=== PATIENT | male | born 1940 | race Caucasian/White ===

== ENCOUNTER 2018-04-28 13:17 | Observation (INO) | payer MEDICARE, BC ==
[~2018-04-28] VITALS: Ht 172.7 cm; Wt 79.9 kg
[~2018-04-28 13:17] MED LIST: ATENOLOL50 MG PO; AUGMENTIN 875-1 EACH PO; DIAZEPAM5 MG PO; LEVOTHYROXINE100 MCG PO; LOSARTAN POTASS25 MG PO; METFORMIN HCL500 MG PO; NEXIUM40 MG PO; QUINAPRIL HCL40 MG PO; SIMVASTATIN80 MG PO; STARLIX120 MG PO; TAMSULOSIN HCL0.4 MG PO; TENORMIN50 MG PO
--- OUTSIDE RECORDS SUMMARY | 2018-04-28 13:20 | XMS REPORT | Summary of Care ---
Author Author [facility] Organization [facility] Address Unknown Phone Unavailable Encounter HEIDY Saucedo(HERMILA) [id number] Date(s): 07/08/17 - 07/10/17 [facility] [address] [place] [address]- [phone] Encounter Diagnosis Other forms of angina pectoris (Final) - Discharge Disposition: Home or Self Care Attending Physician: Varun Howell MD Admitting Physician: Varun Howell MD Referring Physician: Varun Howell MD Vital Signs 1 2 3 Most recent to oldest [Reference Range]: 172.72 cm (07/08/17 11:25 AM) 172.72 cm (07/03/17 9:58 AM) Height 98 DegF (07/10/17 3:31 PM) 98 DegF (07/10/17 11:56 AM) 97.8 DegF (07/10/17 7:10 AM) Temperature Oral [96.4-99.1 DegF] 178/62 mmHg *HI* (07/10/17 3:31 PM) 135/72 mmHg (07/10/17 11:56 AM) 181/92 mmHg *HI* (07/10/17 9:41 AM) Blood Pressure [90-140/60-90 mmHg] 18 BRMIN (07/10/17 4:00 AM) 18 BRMIN (07/10/17 12:00 AM) 18 BRMIN (07/09/17 8:00 PM) Respiratory Rate [14-20 BRMIN] 69 bpm (07/10/17 3:31 PM) 62 bpm (07/10/17 11:56 AM) 70 bpm (07/10/17 9:41 AM) Peripheral Pulse Rate [60-100 bpm] 77.727 kg (07/08/17 11:25 AM) 80.653 kg (07/03/17 9:58 AM) Weight 26.05 m2 (07/08/17 11:25 AM) 27.04 m2 (07/03/17 9:58 AM) Body Mass Index Problem List Condition Effective Dates Status Health Status Informant Anxiety(Confirmed) Active CAD (coronary artery Active disease)(Confirmed) SOB (shortness of Active breath) on exertion(Confirmed) History of Active melanoma(Confirmed) [place] (hard of Active hearing)(Confirmed) Hyperlipidemia(Confi Active rmed) Hypertension(Confirm Active ed) Hypothyroidism(Confi Active rmed) Allergies, Adverse Reactions, Alerts Substance Reaction Severity Status tetanus toxoid Active Medications *Please bring pt own carbinoxamine, chlorzoxazone, mgcl *Please bring pt own carbinoxamine, chlorzoxazone, mgcl, ATTN:ALISA, Drug form: MIS C, Route: MISC, QSHIFT, 07/08/17 0:00:00 CDT, Duration: 30 day, Stop date: 08/06 16:00:00 CDT Start Date: 07/08/17 Stop Date: 07/11/17 Status: Discontinued acetaminophen 650 mg, 2 tab, Route: PO, Drug form: TAB, Q6H, Dosing Weight 80.653, kg, PRN For Temp > 100.4 F, Start date: 07/07/17 22:17:00 CDT, Duration: 30 day, Stop date: 08/06/17 22:16:00 CDT Notes: Do not exceed 4 gm/day. (Same as: Tylenol) Start Date: 07/07/17 Stop Date: 07/11/17 Status: Discontinued acetaminophen-hydrocodone 325 mg-5 mg oral tablet 2 tab, Route: PO, Drug Form: TAB, Dosing Weight 80.653, kg, Q4H, PRN Pain Score 7-10, Start date: 07/07/17 18:24:00 CDT, Duration: 30 day, Stop date: 08/06/17 1 8:23:00 CDT Notes: (Same as: [place] 325/5) Do not exceed 4gm/day of acetaminophen. Start Date: 07/07/17 Stop Date: 07/08/17 Status: Discontinued Altace 10 mg, 2 cap, Route: PO, Drug form: CAP, Daily, Start date: 07/08/17 9:00:00 CDT , Duration: 30 day, Stop date: 08/06/17 9:00:00 CDT Notes: (Same as:Altace) Start Date: 07/08/17 Stop Date: 07/11/17 Status: Discontinued aspirin 0 Refill(s) Start Date: 07/03/17 Stop Date: 07/10/17 Status: Discontinued aspirin 81 mg, 1 tab, Route: PO, Drug form: ECTAB, Daily, Dosing Weight 80.653, kg, Star t date: 07/08/17 9:00:00 CDT, Duration: 30 day, Stop date: 08/06/17 9:00:00 CDT Notes: Do not crush or chew.(Same As: Ecotrin) Start Date: 07/08/17 Stop Date: 07/11/17 Status: Discontinued aspirin 81 mg tablet, enteric coated 81 mg=1 tab, PO, Daily, 0 Refill(s) Start Date: 07/10/17 Status: Ordered atenolol 50 mg oral tablet 50 mg=1 tab, PO, Daily, # 30 tab, 0 Refill(s) Start Date: 07/03/17 Stop Date: 07/10/17 Status: Discontinued atenolol 50 mg oral tablet 50 mg=1 tab, PO, Daily, 0 Refill(s) Start Date: 07/10/17 Status: Ordered atenolol 50 mg oral tablet 50 mg, 1 tab, Route: PO, Drug form: TAB, Daily, Dosing Weight 80.653, kg, Start date: 07/08/17 9:00:00 CDT, Duration: 30 day, Stop date: 08/06/17 9:00:00 CDT Notes: (Same As:Tenormin) Start Date: 07/08/17 Stop Date: 07/11/17 Status: Discontinued Ativan 1 mg, 0.5 mL, Route: IVP, Drug form: INJ, ONCE, Dosing Weight 77.727, kg, PRN An xiety, Start date: 07/09/17 9:16:00 CDT Notes: (Same as: Ativan) Start Date: 07/09/17 Stop Date: 07/09/17 Status: Completed azelastine nasal 0.1% (137 mcg/inh) spray 2 spray, NASAL, BID, 0 Refill(s) Start Date: 07/03/17 Status: Ordered azelastine nasal 0.1% (137 mcg/inh) spray 2 inhalation, Route: NASAL, Drug Form: SPRY, Dosing Weight 80.653, kg, BID, Star t date: 07/08/17 9:00:00 CDT, Duration: 30 day, Stop date: 08/06/17 17:00:00 CDT Notes: (azelastine 137 microgram/inh 34 ml nasal SPR) Non-formulary drug. Same As: Astelin) Start Date: 07/08/17 Stop Date: 07/11/17 Status: Discontinued B Complex 100 0 Refill(s) Start Date: 07/03/17 Status: Ordered Benadryl 50 mg, Route: IVP, ONCE, Dosing Weight 80.653, kg, Start date: 07/07/17 14:51:00 CDT, Stop date: 07/07/17 14:51:00 CDT Start Date: 07/07/17 Stop Date: 07/07/17 Status: Completed carbinoxamine 4 mg oral tablet 4 mg=1 tab, PO, Q6H, 0 Refill(s) Start Date: 07/03/17 Status: Ordered carbinoxamine 4 mg oral tablet 4 mg, 1 tab, Route: PO, Drug form: TAB, Q6H, Dosing Weight 80.653, kg, Start paul e: 07/08/17 0:00:00 CDT, Duration: 30 day, Stop date: 08/06/17 18:00:00 CDT Start Date: 07/08/17 Stop Date: 07/11/17 Status: Discontinued chlorzoxazone 500 mg, Route: PO, Drug form: TAB, TID, Dosing Weight 80.653, kg, Start date: 9:00:00 CDT, Duration: 30 day, Stop date: 08/06/17 17:00:00 CDT Start Date: 07/08/17 Stop Date: 07/11/17 Status: Discontinued chlorzoxazone 500 mg oral tablet 500 mg=1 tab, PO, TID, 0 Refill(s) Start Date: 07/03/17 Status: Ordered clopidogrel 75 mg, 1 tab, Route: PO, Drug form: TAB, Daily, Dosing Weight 80.653, kg, Start date: 07/08/17 9:00:00 CDT, Duration: 30 day, Stop date: 08/06/17 9:00:00 CDT Notes: (Same As: Plavix) Start Date: 07/08/17 Stop Date: 07/11/17 Status: Discontinued clopidogrel 75 mg oral tablet 75 mg=1 tab, PO, Daily, # 30 tab, 0 Refill(s) Start Date: 07/03/17 Status: Ordered diazepam 10 mg, Route: PO, Drug form: TAB, TID, Dosing Weight 80.653, kg, Start date: 9:00:00 CDT, Duration: 30 day, Stop date: 08/06/17 17:00:00 CDT Start Date: 07/08/17 Stop Date: 07/07/17 Status: Canceled diazepam 10 mg, 2 tab, Route: PO, Drug form: TAB, TID, Dosing Weight 80.653, kg, PRN Anxi ety, Start date: 07/07/17 20:11:00 CDT, Duration: 30 day, Stop date: 08/06/17 20 :10:00 CDT Notes: (Same as: Valium) Start Date: 07/07/17 Stop Date: 07/07/17 Status: Discontinued diazepam 10 mg, 2 tab, Route: PO, Drug form: TAB, TID, Dosing Weight 80.653, kg, PRN Anxi ety, Start date: 07/08/17 9:00:00 CDT, Duration: 30 day, Stop date: 08/07/17 8:5 9:00 CDT Notes: (Same as: Valium) Start Date: 07/08/17 Stop Date: 07/11/17 Status: Discontinued diazepam 10 mg oral tablet 10 mg=1 tab, PO, TID, 0 Refill(s) Start Date: 07/03/17 Stop Date: 07/07/17 Status: Deleted diazepam 10 mg rectal kit MD, ONCE, 0 Refill(s) Start Date: 07/03/17 Stop Date: 07/03/17 Status: Completed enoxaparin 40 mg, 0.4 mL, Route: SUB-Q, Drug form: INJ, [id number], Dosing Weight 80.653, kg, Start date: 07/08/17 12:00:00 CDT, Duration: 30 day, Stop date: 08/06/17 12:00: 00 CDT Notes: (Same as: Lovenox) Start Date: 07/08/17 Stop Date: 07/09/17 Status: Voided With Results EPINEPHrine-lidocaine 1:200,000-2% preservative-free injectable solution 20 mL, Route: INTRADERM, Drug Form: INJ, Dosing Weight 77.727, kg, ONCE, Start d ate: 07/09/17 17:28:00 CDT, Stop date: 07/09/17 17:28:00 CDT Notes: (lidocaine-epi 2%-1:133825 20 ml AMP (MPF)) Preservative-free (Same as: Xylocaine-MFP w/Epinephrine) Start Date: 07/09/17 Stop Date: 07/09/17 Status: Completed EPINEPHrine-lidocaine 1:200,000-2% preservative-free injectable solution 10 ml, Route: INTRADERM, Drug Form: INJ, Dosing Weight 77.727, kg, ONCE, Start d ate: 07/08/17 17:31:00 CDT, Stop date: 07/08/17 17:31:00 CDT Notes: (lidocaine-epi 2%-1:213535 20 ml AMP (MPF)) Preservative-free (Same as: Xylocaine-MFP w/Epinephrine) Start Date: 07/08/17 Stop Date: 07/08/17 Status: Ordered Floranex 1 tab, Route: PO, Drug Form: TAB, Daily, Start date: 07/08/17 9:00:00 CDT, Durat ion: 30 day, Stop date: 08/06/17 9:00:00 CDT Notes: (Same as Floranex)Do NOT refrigerate Start Date: 07/08/17 Stop Date: 07/11/17 Status: Discontinued hydrALAZINE 10 mg, 0.5 mL, Route: IV, Drug form: INJ, Q6H, Dosing Weight 77.727, kg, PRN Hyp ertension, Start date: 07/10/17 9:49:00 CDT, Duration: 30 day, Stop date: 9:48:00 CDT Notes: (Same as: Apresoline)Push over 5 minutes Start Date: 07/10/17 Stop Date: 07/11/17 Status: Discontinued labetalol 10 mg, 2 mL, Route: IV, Drug form: INJ, Q4H, Dosing Weight 77.727, kg, PRN Hyper tension, Start date: 07/09/17 9:43:00 CDT, Duration: 30 day, Stop date: 08/08/17 9:42:00 CDT Notes: (Same as: Normodyne, Trandate)Push over 2 minutes Give bolus over 2-3 mi nutes. Start Date: 07/09/17 Stop Date: 07/10/17 Status: Discontinued lactobacillus acidophilus 1 tab, Route: PO, Drug Form: TAB, Dosing Weight 80.653, kg, Daily, Start date: 0 07/08/17 9:00:00 CDT, Duration: 30 day, Stop date: 08/06/17 9:00:00 CDT Start Date: 07/08/17 Stop Date: 07/07/17 Status: Deleted levothyroxine 100 microgram, 1 tab, Route: PO, Drug form: TAB, [id number], Dosing Weight 80.653, k g, Start date: 07/08/17 6:30:00 CDT, Duration: 30 day, Stop date: 08/06/17 6:30: 00 CDT Notes: Take 1 hour before or 2 hours after meal; Enteral feeds may interefere wi th the absorption of this medication. (Same as:Levothroid, Synthroid) Start Date: 07/08/17 Stop Date: 07/11/17 Status: Discontinued levothyroxine 100 mcg (0.1 mg) oral tablet 100 microgram=1 tab, PO, Daily, # 30 tab, 0 Refill(s) Start Date: 07/03/17 Status: Ordered magnesium chloride-calcium carbonate 64 mg-112 mg oral delayed release tablet 2 tab, Route: PO, Drug Form: ECTAB, Dosing Weight 80.653, kg, Daily, Start date: 07/08/17 9:00:00 CDT, Duration: 30 day, Stop date: 08/06/17 9:00:00 CDT Start Date: 07/08/17 Stop Date: 07/11/17 Status: Discontinued magnesium chloride-calcium carbonate 64 mg-112 mg oral delayed release tablet 2 tab, PO, Daily, 0 Refill(s) Start Date: 07/03/17 Status: Ordered metFORMIN PO, 0 Refill(s) Start Date: 07/03/17 Stop Date: 07/10/17 Status: Discontinued mometasone topical TOP, Daily, 0 Refill(s) Start Date: 07/03/17 Status: Ordered morphine Sulfate 12 mg, 6 mL, Route: PO, Drug form: SOLN, Q4H, Dosing Weight 80.653, kg, PRN Pain Score 7-10, Start date: 07/07/17 18:24:00 CDT, Duration: 30 day, Stop date: 18:23:00 CDT Notes: (Same as:MORPhine Sulfate) Start Date: 07/07/17 Stop Date: 07/11/17 Status: Discontinued nitroglycerin SL Tab 0.4 mg, 1 tab, Route: SL, Drug form: TAB, Q5Min, Dosing Weight 80.653, kg, PRN C hest Pain, Start date: 07/07/17 18:24:00 CDT, Duration: 3 doses or times, Stop d ate: Limited # of times Notes: (Same as:Nitroquick, Nitrostat)"Do Not Crush" Sublingual tablet Start Date: 07/07/17 Stop Date: 07/11/17 Status: Discontinued normal saline 0.9% IV 1,000 mL 1,000 mL, Rate: 100 ml/hr, Infuse over: 10 hr, Route: IV, Dosing Weight 80.653 k g, Total Volume: 1,000, Start date: 07/07/17 14:51:00 CDT, Duration: 30 day, Sto p date: 08/06/17 14:50:00 CDT, 1.98, m2 Start Date: 07/07/17 Stop Date: 07/07/17 Status: Discontinued pantoprazole 40 mg, 1 tab, Route: PO, Drug form: ECTAB, Before Breakfast, Dosing Weight 80.65 3, kg, Start date: 07/08/17 7:30:00 CDT, Duration: 30 day, Stop date: 08/06/17 7 :30:00 CDT Notes: Tablet should not be chewed or crushed.(Same as: Protonix) Start Date: 07/08/17 Stop Date: 07/11/17 Status: Discontinued pantoprazole 40 mg oral enteric coated tablet 40 mg=1 tab, PO, Daily, 0 Refill(s) Start Date: 07/03/17 Status: Ordered Probiotic Formula 1 cap, PO, Daily, 0 Refill(s) Start Date: 07/03/17 Status: Ordered quinapril 40 mg, Route: PO, Drug form: TAB, Daily, Dosing Weight 80.653, kg, Start date: 0 07/08/17 9:00:00 CDT, Duration: 30 day, Stop date: 08/06/17 9:00:00 CDT Start Date: 07/08/17 Stop Date: 07/07/17 Status: Deleted quinapril 40 mg oral tablet 40 mg=1 tab, PO, Daily, 0 Refill(s) Start Date: 07/03/17 Status: Ordered Rocephin + sterile water 10 mL 1 gm, Route: IVP, [id number], Dosing Weight 77.727, kg, Start date: 07/08/17 17:00: 00 CDT, Duration: 30 day, Stop date: 08/06/17 17:00:00 CDT, ABX Indication: Feve r of Unknown Source 0-60 days of age Notes: (Same As: Rocephin).Use with 100 mL NS and infuse over 30 min MEDICA TION WASTE Product Size: 1000 mgProduct Wasted: ___ mg Start Date: 07/08/17 Stop Date: 07/11/17 Status: Discontinued Saline Flush 0.9% 10 ml, Route: IVP, Drug Form: INJ, Dosing Weight 80.653, kg, Q12H, Start date: 0 07/08/17 9:00:00 CDT, Duration: 30 day, Stop date: 08/06/17 21:00:00 CDT Notes: Same as: BD Posiflush Sterile Start Date: 07/08/17 Stop Date: 07/11/17 Status: Discontinued Saline Flush 0.9% 10 ml, Route: IVP, Drug Form: INJ, Dosing Weight 80.653, kg, PRN, PRN Line Flush , Start date: 07/08/17 8:02:00 CDT, Duration: 30 day, Stop date: 08/07/17 8:01:0 0 CDT Notes: Same as: BD Posiflush Sterile Start Date: 07/08/17 Stop Date: 07/11/17 Status: Discontinued simvastatin 80 mg, 2 tab, Route: PO, Drug form: TAB, Bedtime, Dosing Weight 80.653, kg, Star t date: 07/07/17 21:00:00 CDT, Duration: 30 day, Stop date: 08/05/17 21:00:00 CD T Notes: (Same as: Zocor) Start Date: 07/07/17 Stop Date: 07/11/17 Status: Discontinued simvastatin 80 mg oral tablet 80 mg=1 tab, PO, Bedtime, # 30 tab, 0 Refill(s) Start Date: 07/03/17 Stop Date: 08/02/17 Status: Ordered Sodium Chloride 0.9% IV 1,000 mL 1,000 mL, Rate: 75 ml/hr, Infuse over: 13.3 hr, Route: IV, Dosing Weight 80.653 kg, Total Volume: 1,000, Start date: 07/07/17 18:24:00 CDT, Duration: 10 hr, Sto p date: 07/08/17 4:23:00 CDT, 1.98, m2 Start Date: 07/07/17 Stop Date: 07/08/17 Status: Completed Starlix 120 mg oral tablet 120 mg=1 tab, PO, PRN, 0 Refill(s) Start Date: 07/07/17 Status: Ordered tamsulosin 0.4 mg, 1 cap, Route: PO, Drug form: CAP, Daily, Dosing Weight 80.653, kg, Start date: 07/08/17 9:00:00 CDT, Duration: 30 day, Stop date: 08/06/17 9:00:00 CDT Notes: (Same As: Flomax) "Do Not Crush" Start Date: 07/08/17 Stop Date: 07/11/17 Status: Discontinued tamsulosin 0.4 mg oral capsule 0.4 mg=1 cap, PO, Daily, # 30 cap, 0 Refill(s) Start Date: 07/03/17 Status: Ordered Vitamin D3 0 Refill(s) Start Date: 07/03/17 Status: Ordered Zofran 4 mg, 2 mL, Route: IV, Drug form: INJ, Q4H, Dosing Weight 80.653, kg, PRN Nausea , Start date: 07/07/17 22:17:00 CDT, Duration: 30 day, Stop date: 08/06/17 22:16 :00 CDT Notes: (Same as: Zofran) MEDICATION WASTE Product Size: 4 mgProduct Was last: ___ mg Start Date: 07/07/17 Stop Date: 07/11/17 Status: Discontinued Results ELECTROLYTES 1 2 3 Most recent to oldest [Reference Range]: 132 mEq/L *LOW* (07/10/17 11:27 AM) 135 mEq/L (07/09/17 9:26 AM) 134 mEq/L *LOW* (07/08/17 3:21 AM) Sodium Lvl [135-145 mEq/L] 3.9 mEq/L (07/10/17 11:27 AM) 3.9 mEq/L (07/09/17 9:26 AM) 3.8 mEq/L (07/08/17 3:21 AM) Potassium Lvl [3.5-5.1 mEq/L] 97 mEq/L (07/10/17 11:27 AM) 98 mEq/L (07/09/17 9:26 AM) 99 mEq/L (07/08/17 3:21 AM) Chloride Lvl [95-109 mEq/L] 28 mEq/L (07/10/17 11:27 AM) 28 mEq/L (07/09/17 9:26 AM) 25 mEq/L (07/08/17 3:21 AM) CO2 [24-32 mEq/L] 10.9 mEq/L (07/10/17 11:27 AM) 12.9 mEq/L (07/09/17 9:26 AM) 13.8 mEq/L (07/08/17 3:21 AM) AGAP [10.0-20.0 mEq/L] CHEM PANEL 1 2 3 Most recent to oldest [Reference Range]: 1.06 mg/dL (07/10/17 11:27 AM) 1.28 mg/dL (07/09/17 9:26 AM) 1.14 mg/dL (07/08/17 3:21 AM) Creatinine Lvl [0.50-1.40 mg/dL] 67 mL/min/1.73m2 1 *NA* (07/10/17 11:27 AM) 53 mL/min/1.73m2 2 *NA* (07/09/17 9:26 AM) 61 mL/min/1.73m2 3 *NA* (07/08/17 3:21 AM) eGFR 12 mg/dL (07/10/17 11:27 AM) 10 mg/dL (07/09/17 9:26 AM) 15 mg/dL (07/08/17 3:21 AM) BUN [7-22 mg/dL] 13 (07/08/17 3:21 AM) B/C Ratio [6-25] 181 mg/dL *HI* (07/10/17 11:27 AM) 242 mg/dL *HI* (07/09/17 9:26 AM) 163 mg/dL *HI* (07/08/17 3:21 AM) Glucose Lvl [70-99 mg/dL] 6.7 g/dL (07/08/17 3:21 AM) Total Protein [6.4-8.4 g/dL] 3.4 g/dL *LOW* (07/08/17 3:21 AM) Albumin Lvl [3.5-5.0 g/dL] 3.3 g/dL (07/08/17 3:21 AM) Globulin [2.7-4.2 g/dL] 1.0 (07/08/17 3:21 AM) A/G Ratio [0.7-1.6] 8.2 mg/dL *LOW* (07/10/17 11:27 AM) 8.2 mg/dL *LOW* (07/09/17 9:26 AM) 8.3 mg/dL *LOW* (07/08/17 3:21 AM) Calcium Lvl [8.5-10.5 mg/dL] 21 unit/L (07/08/17 3:21 AM) ALT [0-65 unit/L] 10 unit/L (07/08/17 3:21 AM) AST [0-37 unit/L] 34 unit/L *LOW* (07/08/17 3:21 AM) Alk Phos [39-136 unit/L] 0.7 mg/dL (07/08/17 3:21 AM) Bili Total [0.2-1.3 mg/dL] 1Result Comment: The eGFR is calculated using the CKD-EPI formula. In most young, healthy individuals the eGFR will be >90 mL/min/1.73m2. The eGFR declines with age. An eGFR of 60-89 may be normal in some populations, particularly the elderly, for whom the CKD-EPI formula has not been extensively validated. Use of the eGFR is not recommended in the following populations: Individuals with unstable creatinine concentrations, including patients and those with serious co-morbid conditions. Patients with extremes in muscle mass or diet. The data above are obtained from the National Kid[employer] Disease Education Program ( NK[employer]) which additionally recommends that when the eGFR is used in patients with extremes of body mass index for purposes of drug dosing, the eGFR should be mul tiplied by the estimated BMI. 2Result Comment: The eGFR is calculated using the CKD-EPI formula. In most young, healthy individuals the eGFR will be >90 mL/min/1.73m2. The eGFR declines with age. An eGFR of 60-89 may be normal in some populations, particularly the elderly, for whom the CKD-EPI formula has not been extensively validated. Use of the eGFR is not recommended in the following populations: Individuals with unstable creatinine concentrations, including patients and those with serious co-morbid conditions. Patients with extremes in muscle mass or diet. The data above are obtained from the National Kid[employer] Disease Education Program ( NK[employer]) which additionally recommends that when the eGFR is used in patients with extremes of body mass index for purposes of drug dosing, the eGFR should be mul tiplied by the estimated BMI. 3Result Comment: The eGFR is calculated using the CKD-EPI formula. In most young, healthy individuals the eGFR will be >90 mL/min/1.73m2. The eGFR declines with age. An eGFR of 60-89 may be normal in some populations, particularly the elderly, for whom the CKD-EPI formula has not been extensively validated. Use of the eGFR is not recommended in the following populations: Individuals with unstable creatinine concentrations, including patients and those with serious co-morbid conditions. Patients with extremes in muscle mass or diet. The data above are obtained from the National Kidney Disease Education Program ( NKDEP) which additionally recommends that when the eGFR is used in patients with extremes of body mass index for purposes of drug dosing, the eGFR should be mul tiplied by the estimated BMI. LIPIDS 1 2 3 Most recent to oldest [Reference Range]: 1.85 *LOW* (07/08/17 3:21 AM) 2.03 *LOW* (07/03/17 10:40 AM) CHD Risk [4.00-7.30] 109 mg/dL (07/08/17 3:21 AM) 118 mg/dL (07/03/17 10:40 AM) Chol [<=199 mg/dL] 56 mg/dL (07/08/17 3:21 AM) 87 mg/dL (07/03/17 10:40 AM) Trig [<=149 mg/dL] 59 mg/dL *LOW* (07/08/17 3:21 AM) 58 mg/dL *LOW* (07/03/17 10:40 AM) HDL [>=61 mg/dL] 39 mg/dL (07/08/17 3:21 AM) 43 mg/dL (07/03/17 10:40 AM) LDL (Calculated) [<=99 mg/dL] 11 *NA* (07/08/17 3:21 AM) 17 *NA* (07/03/17 10:40 AM) VLDL SPECIAL CHEMISTRY 1 2 3 Most recent to oldest [Reference Range]: 6.6 % *HI* (07/08/17 3:21 AM) Hgb A1C [<=5.6 %] URINE AND STOOL 1 2 3 Most recent to oldest [Reference Range]: Slight *ABN* (07/08/17 9:19 PM) UA Turbidity [Clear] Red *NA* (07/08/17 9:19 PM) UA Color 6.0 (07/08/17 9:19 PM) UA pH [5.0-8.0] 1.021 (07/08/17 9:19 PM) UA Spec Grav [<=1.030] 150 mg/dL *ABN* (07/08/17 9:19 PM) UA Glucose [Negative mg/dL] Large *ABN* (07/08/17 9:19 PM) UA Blood [Negative] Trace mg/dL *ABN* (07/08/17 9:19 PM) UA Ketones [Negative mg/dL] 100 mg/dL *ABN* (07/08/17 9:19 PM) UA Protein [Negative mg/dL] <=1.0 mg/dL *NA* (07/08/17 9:19 PM) UA Urobilinogen [0.1-1.0 mg/dL] Negative *NA* (07/08/17 9:19 PM) UA Bili [Negative] Negative (07/08/17 9:19 PM) UA Leuk Est [Negative] Negative (07/08/17 9:19 PM) UA Nitrite [Negative] >182 /HPF *HI* (07/08/17 9:19 PM) UA WBC [0-5 /HPF] >182 /HPF *HI* (07/08/17 9:19 PM) UA RBC [0-2 /HPF] Few /HPF *NA* (07/08/17 9:19 PM) UA Bacteria [None Seen /HPF] None Seen *NA* (07/08/17 9:19 PM) UA Sq Epi Occasional /HPF *ABN* (07/08/17 9:19 PM) UA Iraan Yeast [None Seen /HPF] HEMATOLOGY 1 2 3 Most recent to oldest [Reference Range]: 9.8 K/CMM (07/10/17 11:27 AM) 10.4 K/CMM (07/09/17 9:26 AM) 16.7 K/CMM *HI* (07/08/17 3:21 AM) WBC [3.7-10.4 K/CMM] 3.73 M/CMM *LOW* (07/10/17 11:27 AM) 4.07 M/CMM *LOW* (07/09/17 9:26 AM) 4.70 M/CMM (07/08/17 3:21 AM) RBC [4.70-6.10 M/CMM] 11.4 g/dL *LOW* (07/10/17 11:27 AM) 12.6 g/dL *LOW* (07/09/17 9:26 AM) 14.2 g/dL (07/08/17 3:21 AM) Hgb [14.0-18.0 g/dL] 33.4 % *LOW* (07/10/17:27 AM) 36.8 % *LOW* (07/09/17: AM) 42.3 % (07/08/17:21 AM) Hct [42.0-54.0 %] 89.4 fL (07/10/17:27 AM) 90.5 fL (07/09/17:26 AM) 90.0 fL (07/08/17:21 AM) MCV [80.0-94.0 fL] 30.6 pg (07/10/17:27 AM) 30.9 pg (07/09/17:26 AM) 30.2 pg (07/08/17 3:21 AM) MCH [27.0-31.0 pg] 34.2 g/dL (07/10/17: AM) 34.2 g/dL (07/09/17:26 AM) 33.5 g/dL (07/08/17:21 AM) MCHC [32.0-36.0 g/dL] 13.0 % (07/10/17: AM) 13.1 % (07/09/17:26 AM) 12.9 % (07/08/17:21 AM) RDW [11.5-14.5 %] 9.7 fL (07/10/17:27 AM) 9.7 fL (07/09/17:26 AM) 9.5 fL (07/08/17:21 AM) MPV [7.4-10.4 fL] 217 K/CMM (07/10/17:27 AM) 215 K/CMM (07/09/17:26 AM) 244 K/CMM (07/08/17:21 AM) Platelet [133-450 K/CMM] 73.1 % (07/10/17:27 AM) 73.5 % (07/09/17:26 AM) 90.2 % *HI* (07/08/17 3:21 AM) Segs [45.0-75.0 %] 16.4 % *LOW* (07/10/17:27 AM) 16.4 % *LOW* (4/19/18 9:26 AM) 5.7 % *LOW* (07/08/17 3:21 AM) Lymphocytes [20.0-40.0 %] 7.5 % (07/10/17 11:27 AM) 7.9 % (07/09/17 9:26 AM) 3.7 % (07/08/17 3:21 AM) Monocytes [2.0-12.0 %] 2.4 % (07/10/17 11:27 AM) 1.6 % (07/09/17 9:26 AM) 0.1 % (07/08/17 3:21 AM) Eosinophils [0.0-4.0 %] 0.6 % (07/10/17 11:27 AM) 0.6 % (07/09/17 9:26 AM) 0.3 % (07/08/17 3:21 AM) Basophils [0.0-1.0 %] 7.2 K/CMM (07/10/17 11:27 AM) 7.7 K/CMM (07/09/17 9:26 AM) 15.1 K/CMM *HI* (07/08/17 3:21 AM) Segs-Bands # [1.5-8.1 K/CMM] 1.6 K/CMM (07/10/17 11:27 AM) 1.7 K/CMM (07/09/17 9:26 AM) 0.9 K/CMM *LOW* (07/08/17 3:21 AM) Lymphocytes # [1.0-5.5 K/CMM] 0.7 K/CMM (07/10/17 11:27 AM) 0.8 K/CMM (07/09/17 9:26 AM) 0.6 K/CMM (07/08/17 3:21 AM) Monocytes # [0.0-0.8 K/CMM] 0.2 K/CMM (07/10/17 11:27 AM) 0.2 K/CMM (07/09/17 9:26 AM) 0.2 K/CMM (07/03/17 10:40 AM) Eosinophils # [0.0-0.5 K/CMM] 0.1 K/CMM (07/10/17 11:27 AM) 0.1 K/CMM (07/09/17 9:26 AM) 0.1 K/CMM (07/03/17 10:40 AM) Basophils # [0.0-0.2 K/CMM] 13.7 seconds (07/08/17 3:21 AM) 13.2 seconds (07/03/17 10:40 AM) PT [12.0-14.7 seconds] 1.05 (07/08/17 3:21 AM) 1.00 (07/03/17 10:40 AM) INR [0.85-1.17] 31.0 seconds (07/08/17 3:21 AM) 33.9 seconds (07/03/17 10:40 AM) PTT [22.9-35.8 seconds] Immunizations No data available for this section Procedures Procedure Date Related Diagnosis Body Site Status Appendectomy Completed Cholecystectomy Completed Colonoscopy Completed Esophagogastroduodenoscopy Completed Repair of diaphragmatic hiatal hernia Completed Social History Social History Type Response Substance Abuse Use: None. Alcohol Current, Previous treatment: None. Smoking Status Former smoker; Exposure to Tobacco Smoke None; Cigarette Smoking Last 365 Days No; Reg Smoking Cessation Counseling No entered on: 07/08/17 Assessment and Plan Extracted from: Title: Cardiology Progress Note Author: Susie Mcintosh MD Date: 07/10/17 Impression and Plan 1. CVA secondary to small vessel disease per Neurology 2. Abnormal UA -> skin michelle on culture 3. Coronary artery disease 4. Peripheral arterial disease 5. Hypertension 6. Hyperlipidemia 7. Diabetes mellitus 8. Acute anemia from right groin bleeding Recommendations: 1. Appreciate Neurology assistance. No evidence of significant stenosis on carotid Doppler. MRI with possible parietal infarct. 2. Blood cultures without growth thus far. Urine culture with skin michelle. 3. Continue current cardiac medications. Labetalol is on backorder. Changed to Hydralazine PRN. 4. Antibiotics per medicine. 5. Discharge home once cleared by consultants, PT, and OT. Extracted from: Title: Clinical Document Author: Alia Dos Santos MD Date: 07/08/17 Internal Medicine Consultation [facility] Alia Dos Santos MD REASON FOR CONSULT: Medical managent HISTORY OF PRESENT ILLNESS: This is a 77-year-old who has past medical history of hypertension, type 2 diabetes and history of stroke 1-1/2 years. He was admitted from outpatient cardiac catheterization. Subsequent to the catheterization, it was noted that patient was "confused" and was having issues with speech. He was having trouble finding the right words and that he initially thought process was that it could be because of the sedation he received. Meanwhile, patient did have a CT scan of the brain ordered by Dr. Howell who is the property worker who did the procedure, that showed old right cerebellar lacunar infarct and white matter changes. Patient at present time, able to communicate, but has some word finding issues. ROS: 14 point review system was performed is negative except for as stated above PAST MEDICAL HISTORY: 1. Possible dementia. 2. Hypertension. 3. Hyperlipidemia. 4. Type 2 diabetes. 5. Peripheral vascular disease. PAST SURGICAL HISTORY: He had a cardiac catheterization, history of appendicectomy in 1981, gallbladder removal in 2008, hiatal hernia, melanoma stage III and diverticulitis. SOCIAL HISTORY: Denies any smoking, alcohol or drug use. FAMILY HISTORY: Significant for DC and diabetes. ALLERGIES: Tetanus toxoid. MEDICATIONS:see MAR Vitals and Temp: VitalsTmp(F)[id number] 07/08 10:[id number]--- 07/08 06:84800.1 07/08 05:00----[id number]--- 07/08 04:[id number]--- 07/08 03:30----[id number]--- 24 Hr Tmax: 100.8F (38.22c) at 07/08 04:00Vital Signs are the last 5 in the past 48 hours. Labs (Last four charted values) WBC H 16.7(JUL 08)8.5(JUL 03) Hgb 14.2(JUL 08)14.6(JUL 03) Hct 42.3(JUL 08)43.2(JUL 03) Plt 244(JUL 08)239(JUL 03) Na L 134(JUL 08)136(JUL 03) K 3.8(JUL 08)4.7(JUL 03) CO2 25(JUL 08)30(JUL 03) Cl 99(JUL 08)98(JUL 03) Cr 1.14(JUL 08)1.40(JUL 03) BUN 15(JUL 08)17(JUL 03) Glucose Random H 163(JUL 08)H 147(JUL 03) Ca L 8.3(JUL 08)9.1(JUL 03) PT 13.7(JUL 08)13.2(JUL 03) INR 1.05(JUL 08)1.00(JUL 03) PTT 31.0(JUL 08)33.9(JUL 03) ASSESSMENT & EXAM: General: in no apparent distress at this time. Eyes: Pupils equal, round and reactive to light. Eyes normal inspection. ENT: Ears normal. Nose normal. Pharynx normal. Neck: Normal inspection. No jugular venous distention. Neck supple. CVS: Heart sounds normal. Pulses normal. no murmurs Respiratory: No respiratory distress. Breath sounds normal. no wheezing Abdomen: Soft and nontender. no organomegaly Back: Normal inspection. Skin: Skin warm and dry. Normal skin color. Extremities: Extremities exhibit normal ROM. No lower extremity edema. Neuro: Oriented X 3. No motor deficit. DIAGNOSES & PROBLEMS: 1. possible new CVA 2. Hypertension. 3. Diabetes. 4. Hyperlipidemia. 5. Leukocytosis 6. CAD 7. PAD PLAN & TREATMENT: Neurology consult noted MRI is ordered and pending Carotid Doppler is ordered and pending Agree with blood cultures Continue current cardiac meds We will also need a UA and a chest x-ray Monitor blood sugars closely DVT prophylaxis Would start empiric antibiotic MEDICATIONS Scheduled Meds (16):aspirin, atenolol (atenolol 50 mg oral tablet), azelastine nasal (azelastine nasal 0.1% (137 mcg/inh) spray), calcium carbonate-magnesium chloride (magnesium chloride-calcium carbonate 64 mg-112 mg oral delayed release tablet), carbinoxamine (carbinoxamine 4 mg oral tablet), chlorzoxazone, clopidogrel, enoxaparin, lactobacillus acidophilus and bulgaricus (Floranex), levothyroxine, non-formulary (*Please bring pt own carbinoxamine, chlorzoxazone, mgcl), pantoprazole, ramipril (Altace), simvastatin, sodium chloride (Saline Flush 0.9%), tamsulosin Unscheduled Meds: None PRN Meds (6):acetaminophen, diazepam, morphine Sulfate, nitroglycerin (nitroglycerin SL Tab), ondansetron (Zofran), sodium chloride (Saline Flush 0.9%) One Time Meds (1):(Completed) diphenhydrAMINE (Benadryl) Continuous Infusions: None
--- OUTSIDE RECORDS SUMMARY | 2018-04-28 13:20 | XMS REPORT | Continuity of Care Document ---
Author Author [facility] Interface Address Unknown Phone Unavailable Problems Problem Status Onset Date Classification Date Reported Comments Source AMS Active 01/26/2018 [facility] UNK Active 06/25/2017 [facility] STROKE Active 06/25/2017 [facility] Other forms of angina pectoris 07/13/2017 [facility] Anxiety Active Problem 07/13/2017 [facility] CAD (<span ID="[id number]">Confirmed</span>) Active Problem 07/13/2017 [facility] SOB on exertion(<span ID="[id number]">Confirmed</span>) Active Problem 07/13/2017 [facility] History of melanoma Active Problem 07/13/2017 [facility] CURYUNG (<span ID="[id number]">Confirmed</span>) Active Problem 07/13/2017 [facility] Hyperlipidemia Active Problem 07/13/2017 [facility] Hypertension Active Problem 07/13/2017 [facility] Hypothyroidism Active Problem 07/13/2017 [facility] OTHER FORMS OF ANGINA PECTORIS Active [facility] 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 [facility] CEREBRAL INFARCTION, UNSPECIFIED Active [facility] Medications Medication Details Route Status Patient Instructions Ordering Provider Order Date Source Atenolol 50 MG Oral Tablet 50 mg=1 tab, PO, Daily, 0 Refill(s) Active 07/10/2017 [facility] Aspirin 81 MG Enteric Coated Tablet 81 mg=1 tab, PO, Daily, 0 Refill(s) Active 07/10/2017 [facility] Hydralazine 10 mg, 0.5 mL, Route: IV, Drug form: INJ, Q6H, Dosing Weight 77.727, kg, PRN Hypertension, Start date: 07/10/17 9:49:00 CDT, Duration: 30 day, Stop date: 08/09/17 9:48:00 CDTNotes: (Same as: Apresoline) Push over 5 minutes No Longer Active 07/10/2017 [facility] EPINEPHrine-lidocaine 1:200,000-2% preservative-free injectable solution 20 mL, Route: INTRADERM, Drug Form: INJ, Dosing Weight 77.727, kg, ONCE, Start date: 07/09/17 17:28:00 CDT, Stop date: 07/09/17 17:28:00 CDTNotes: (lidocaine-epi 2%-1:792292 20 ml AMP (MPF)) Preservative-free (Same as: Xylocaine-MFP w/Epinephrine) Inactive 07/09/2017 [facility] Labetalol 10 mg, 2 mL, Route: IV, Drug form: INJ, Q4H, Dosing Weight 77.727, kg, PRN Hypertension, Start date: 07/09/17 9:43:00 CDT, Duration: 30 day, Stop date: 08/08/17 9:42:00 CDTNotes: (Same as: NormodyneMyron andate) Push over 2 minutes Give bolus over 2-3 minutes. No Longer Active 07/09/2017 [facility] Ativan 1 mg, 0.5 mL, Route: IVP, Drug form: INJ, ONCE, Dosing Weight 77.727, kg, PRN Anxiety, Start date: 07/09/17 9:16:00 CDTNotes: (Same as: Ativan) Inactive 07/09/2017 [facility] Epinephrine 0.01 MG/ML / Lidocaine Hydrochloride 10 MG/ML Injectable Solution 10 ml, Route: INTRADERM, Drug Form: INJ, Dosing Weight 77.727, kg, ONCE, Start date: 07/08/17 17:31:00 CDT, Stop date: 07/08/17 17:31:00 CDTNotes: (lidocaine-epi 2%-1:974930 20 ml AMP (MPF)) Preservative-free (Same as: Xylocaine-MFP w/Epinephrine) Inactive 07/08/2017 [facility] Rocephin 1 gm, Route: IVP, [id number], Dosing Weight 77.727, kg, Start date: 07/08/17 17:00:00 CDT, Duration: 30 day, Stop date: 08/06/17 17:00:00 CDT, ABX Indication: Fever of Unknown Source 0-60 days of ageNotes: (Same As: Rocephin). Use with 100 mL NS and infuse over 30 min MEDICATION WASTE Product Size: 1000 mg Product Wasted: ___ mg No Longer Active 07/08/2017 [facility] Enoxaparin 40 mg, 0.4 mL, Route: SUB-Q, Drug form: INJ, [id number], Dosing Weight 80.653, kg, Start date: 07/08/17 12:00:00 CDT, Duration: 30 day, Stop date: 08/06/17 12:00:00 CDTNotes: (Same as: Lovenox) No Longer Active 07/08/2017 [facility] Diazepam 10 mg, Route: PO, Drug form: TAB, TID, Dosing Weight 80.653, kg, Start date: 07/08/17 9:00:00 CDT, Duration: 30 day, Stop date: 08/06/17 17:00:00 CDT No Longer Active 07/08/2017 [facility] Chlorzoxazone 500 mg, Route: PO, Drug form: TAB, TID, Dosing Weight 80.653, kg, Start date: 07/08/17 9:00:00 CDT, Duration: 30 day, Stop date: 08/06/17 17:00:00 CDT No Longer Active 07/08/2017 [facility] Magnesium Chloride 535 MG Enteric Coated Tablet 2 tab, Route: PO, Drug Form: ECTAB, Dosing Weight 80.653, kg, Daily, Start date: 07/08/17 9:00:00 CDT, Duration: 30 day, Stop date: 08/06/17 9:00:00 CDT No Longer Active 07/08/2017 [facility] lactobacillus acidophilus 1 tab, Route: PO, Drug Form: TAB, Dosing Weight 80.653, kg, Daily, Start date: 07/08/17 9:00:00 CDT, Duration: 30 day, Stop date: 08/06/17 9:00:00 CDT No Longer Active 07/08/2017 [facility] Azelastine hydrochloride 0.137 MG/ACTUAT Metered Dose Nasal Cement 2 inhalation, Route: NASAL, Drug Form: SPRY, Dosing Weight 80.653, kg, BID, Start date: 07/08/17 9:00:00 CDT, Duration: 30 day, Stop date: 08/06/17 17:00:00 CDTNotes: (azelastine 137 microgram/inh 34 ml nasal SPR) Non-formulary drug. Same As: Astelin) No Longer Active 07/08/2017 [facility] Atenolol 50 MG Oral Tablet 50 mg, 1 tab, Route: PO, Drug form: TAB, Daily, Dosing Weight 80.653, kg, Start date: 07/08/17 9:00:00 CDT, Duration: 30 day, Stop date: 08/06/17 9:00:00 CDTNotes: (Same As:Tenormin) No Longer Active 07/08/2017 [facility] tamsulosin 0.4 mg, 1 cap, Route: PO, Drug form: CAP, Daily, Dosing Weight 80.653, kg, Start date: 07/08/17 9:00:00 CDT, Duration: 30 day, Stop date: 08/06/17 9:00:00 CDTNotes: (Same As: Flomax) "Do Not Crush" No Longer Active 07/08/2017 [facility] Saline Flush 0.9% 10 ml, Route: IVP, Drug Form: INJ, Dosing Weight 80.653, kg, Q12H, Start date: 07/08/17 9:00:00 CDT, Duration: 30 day, Stop date: 08/06/17 21:00:00 CDTNotes: Same as: BD Posiflush Sterile No Longer Active 07/08/2017 [facility] quinapril 40 mg, Route: PO, Drug form: TAB, Daily, Dosing Weight 80.653, kg, Start date: 07/08/17 9:00:00 CDT, Duration: 30 day, Stop date: 08/06/17 9:00:00 CDT No Longer Active 07/08/2017 [facility] Aspirin 81 mg, 1 tab, Route: PO, Drug form: ECTAB, Daily, Dosing Weight 80.653, kg, Start date: 07/08/17 9:00:00 CDT, Duration: 30 day, Stop date: 08/06/17 9:00:00 CDTNotes: Do not crush or chew. (Same As: Ecotrin) No Longer Active 07/08/2017 [facility] Floranex 1 tab, Route: PO, Drug Form: TAB, Daily, Start date: 07/08/17 9:00:00 CDT, Duration: 30 day, Stop date: 08/06/17 9:00:00 CDTNotes: (Same as Floranex) Do NOT refrigerate No Longer Active 07/08/2017 [facility] Altace 10 mg, 2 cap, Route: PO, Drug form: CAP, Daily, Start date: 07/08/17 9:00:00 CDT, Duration: 30 day, Stop date: 08/06/17 9:00:00 CDTNotes: (Same as:Altace) No Longer Active 07/08/2017 [facility] clopidogrel 75 mg, 1 tab, Route: PO, Drug form: TAB, Daily, Dosing Weight 80.653, kg, Start date: 07/08/17 9:00:00 CDT, Duration: 30 day, Stop date: 08/06/17 9:00:00 CDTNotes: (Same As: Plavix) No Longer Active 07/08/2017 [facility] Saline Flush 0.9% 10 ml, Route: IVP, Drug Form: INJ, Dosing Weight 80.653, kg, PRN, PRN Line Flush, Start date: 07/08/17 8:02:00 CDT, Duration: 30 day, Stop date: 08/07/17 8:01:00 CDTNotes: Same as: BD Posiflush Sterile No Longer Active 07/08/2017 [facility] pantoprazole 40 mg, 1 tab, Route: PO, Drug form: ECTAB, Before Breakfast, Dosing Weight 80.653, kg, Start date: 07/08/17 7:30:00 CDT, Duration: 30 day, Stop date: 08/06/17 7:30:00 CDTNotes: Tablet should not be c hewed or crushed. (Same as: Protonix) No Longer Active 07/08/2017 [facility] Thyroxine 100 microgram, 1 tab, Route: PO, Drug form: TAB, Q630AM, Dosing Weight 80.653, kg, Start date: 07/08/17 6:30:00 CDT, Duration: 30 day, Stop date: 08/06/17 6:30:00 CDTNotes: Take 1 hour before or 2 hours after meal; Enteral feeds may interefere with the absorption of this medication. (Same as:Levothroid, Synthroid) No Longer Active 07/08/2017 [facility] Carbinoxamine maleate 4 MG Oral Tablet 4 mg, 1 tab, Route: PO, Drug form: TAB, Q6H, Dosing Weight 80.653, kg, Start date: 07/08/17 0:00:00 CDT, Duration: 30 day, Stop date: 08/06/17 18:00:00 CDT No Longer Active 07/08/2017 [facility] *Please bring pt own carbinoxamine, chlorzoxazone, mgcl *Please bring pt own carbinoxamine, chlorzoxazone, mgcl, ATTN:RN, Drug form: MISC, Route: MISC, QSHIFT, 07/08/17 0:00:00 CDT, Duration: 30 day, Stop date: 08/06/17 16:00:00 CDT No Longer Active 07/08/2017 [facility] Zofran 4 mg, 2 mL, Route: IV, Drug form: INJ, Q4H, Dosing Weight 80.653, kg, PRN Nausea, Start date: 07/07/17 22:17:00 CDT, Duration: 30 day, Stop date: 08/06/17 22:16:00 CDTNotes: (Same as: Zofran) MEDICATION WASTE Product Size: 4 mg Product Wasted: ___ mg No Longer Active 07/08/2017 [facility] Acetaminophen 650 mg, 2 tab, Route: PO, Drug form: TAB, Q6H, Dosing Weight 80.653, kg, PRN For Temp > 100.4 F, Start date: 07/07/17 22:17:00 CDT, Duration: 30 day, Stop date: 08/06/17 22:16:00 CDTNotes: Do not exceed 4 gm/day. (Same as: Tylenol) No Longer Active 07/08/2017 [facility] Simvastatin 80 mg, 2 tab, Route: PO, Drug form: TAB, Bedtime, Dosing Weight 80.653, kg, Start date: 07/07/17 21:00:00 CDT, Duration: 30 day, Stop date: 08/05/17 21:00:00 CDTNotes: (Same as: Zocor) No Longer Active 07/08/2017 [facility] Diazepam 10 mg, 2 tab, Route: PO, Drug form: TAB, TID, Dosing Weight 80.653, kg, PRN Anxiety, Start date: 07/07/17 20:11:00 CDT, Duration: 30 day, Stop date: 08/06/17 20:10:00 CDTNotes: (Same as: Valium) Inactive 07/08/2017 [facility] Morphine 12 mg, 6 mL, Route: PO, Drug form: SOLN, Q4H, Dosing Weight 80.653, kg, PRN Pain Score 7-10, Start date: 07/07/17 18:24:00 CDT, Duration: 30 day, Stop date: 08/06/17 18:23:00 CDTNotes: (Same as:MORPhine Sulfate) No Longer Active 07/07/2017 [facility] Acetaminophen 325 MG / Hydrocodone Bitartrate 5 MG Oral Tablet 2 tab, Route: PO, Drug Form: TAB, Dosing Weight 80.653, kg, Q4H, PRN Pain Score 7-10, Start date: 07/07/17 18:24:00 CDT, Duration: 30 day, Stop date: 08/06/17 18:23:00 CDTNotes: (Same as: [place] 325/5) Do not exceed 4gm/day of acetaminophen. No Longer Active 07/07/2017 [facility] Nitroglycerin 0.4 mg, 1 tab, Route: SL, Drug form: TAB, Q5Min, Dosing Weight 80.653, kg, PRN Chest Pain, Start date: 07/07/17 18:24:00 CDT, Duration: 3 doses or times, Stop date: Limited # of timesNotes: (Same as: Nitroquick, Nitrostat) "Do Not Crush" Sublingual tablet No Longer Active 07/07/2017 [facility] Sodium Chloride 0.9% IV 1,000 mL 1,000 mL, Rate: 75 ml/hr, Infuse over: 13.3 hr, Route: IV, Dosing Weight 80.653 kg, Total Volume: 1,000, Start date: 07/07/17 18:24:00 CDT, Duration: 10 hr, Stop date: 07/08/17 4:23:00 CDT, 1.98, m2 No Longer Active 07/07/2017 [facility] nateglinide 120 MG Oral Tablet [Starlix] 120 mg=1 tab, PO, PRN, 0 Refill(s) Active 07/07/2017 [facility] normal saline 0.9% IV 1,000 mL 1,000 mL, Rate: 100 ml/hr, Infuse over: 10 hr, Route: IV, Dosing Weight 80.653 kg, Total Volume: 1,000, Start date: 07/07/17 14:51:00 CDT, Duration: 30 day, Stop date: 08/06/17 14:50:00 CDT, 1.98, m2 Inactive 07/07/2017 [facility] Benadryl 50 mg, Route: IVP, ONCE, Dosing Weight 80.653, kg, Start date: 07/07/17 14:51:00 CDT, Stop date: 07/07/17 14:51:00 CDT Inactive 07/07/2017 [facility] Magnesium Chloride 535 MG Enteric Coated Tablet 2 tab, PO, Daily, 0 Refill(s) Active 07/03/2017 [facility] Aspirin 0 Refill(s) No Longer Active 07/03/2017 [facility] Probiotic Formula 1 cap, PO, Daily, 0 Refill(s) Active 07/03/2017 [facility] Vitamin D3 0 Refill(s) Active 07/03/2017 [facility] B Complex 100 0 Refill(s) Active 07/03/2017 [facility] clopidogrel 75 mg oral tablet 75 mg=1 tab, PO, Daily, # 30 tab, 0 Refill(s) Active 07/03/2017 [facility] Carbinoxamine maleate 4 MG Oral Tablet 4 mg=1 tab, PO, Q6H, 0 Refill(s) Active 07/03/2017 [facility] Mometasone TOP, Daily, 0 Refill(s) Active 07/03/2017 [facility] Azelastine hydrochloride 0.137 MG/ACTUAT Metered Dose Nasal Cement 2 spray, NASAL, BID, 0 Refill(s) Active 07/03/2017 [facility] tamsulosin 0.4 mg oral capsule 0.4 mg=1 cap, PO, Daily, # 30 cap, 0 Refill(s) Active 07/03/2017 [facility] Atenolol 50 MG Oral Tablet 50 mg=1 tab, PO, Daily, # 30 tab, 0 Refill(s) No Longer Active 07/03/2017 [facility] chlorzoxazone 500 mg oral tablet 500 mg=1 tab, PO, TID, 0 Refill(s) Active 07/03/2017 [facility] pantoprazole 40 mg oral enteric coated tablet 40 mg=1 tab, PO, Daily, 0 Refill(s) Active 07/03/2017 [facility] levothyroxine 100 mcg (0.1 mg) oral tablet 100 microgram=1 tab, PO, Daily, # 30 tab, 0 Refill(s) Active 07/03/2017 [facility] Metformin PO, 0 Refill(s) No Longer Active 07/03/2017 [facility] diazepam 10 mg oral tablet 10 mg=1 tab, PO, TID, 0 Refill(s) No Longer Active 07/03/2017 [facility] diazepam 10 mg rectal kit PA, ONCE, 0 Refill(s) Inactive 07/03/2017 [facility] quinapril 40 mg oral tablet 40 mg=1 tab, PO, Daily, 0 Refill(s) Active 07/03/2017 [facility] simvastatin 80 mg oral tablet 80 mg=1 tab, PO, Bedtime, # 30 tab, 0 Refill(s) Active 07/03/2017 [facility] Allergies, Adverse Reactions, Alerts Substance Category Reaction Severity Reaction type Status Date Reported Comments Source tetanus toxoid Assertion Drug allergy Active [facility] Immunizations Immunization Date Given Site Status Last Updated Comments Source Results Order Name Results Value Reference Range Date Interpretation Comments Source Brain wo contrast CT Brain wo contrast CT Clinical Indication: - AMS resolving; Comparison: 07/07/2017 TECHNIQUE: CT images were obtained from the foramen magnum to the vertex without the use of intravenous contrast on a multidetector CT. Coronal and sagittal reconstructions were obtained. CT radiation dose DLP: 982.52 mGy-cm CT imaging performed at this location utilizes radiation dose optimization techniques which include one or more of the following: -Automated exposure control -Adjustment of the mA and/or kV according to patient size -Use of iterative reconstruction technique FINDINGS: BRAIN PARENCHYMA: There is generalized brain parenchymal atrophy related to the patient's age. Bifrontal cortical atrophy is identified which remains unchanged. Focal hypodensities visualized within the left subinsular cortex. Moderate nonspecific periventricular white matter disease changes are noted. Atherosclerotic calcifications are present within the carotid siphons and distal vertebral arteries. There are no focal mass lesions on this noncontrast head CT. There is no mass effect, midline shift or edema. Expressed a There are no intra-axial fluid collections, intraventricular or intraparenchymal hemorrhage. There is no noncontrast CT evidence of a subacute stroke. The pineal, sellar, brainstem, cerebellum and skull base regions appear unremarkable. VENTRICLES: The lateral ventricles, third and fourth ventricles appear unremarkable. The basilar cisterns are normal. ORBITS, MASTOIDS AND PARANASAL SINUSES: The visualized orbits and paranasal sinuses are unremarkable. The mastoid air cells are clear. SKULL: There are no calvarial abnormalities seen. If there is further concern for intracranial pathology or acute stroke, MRI of the brain may be performed for complete assessment. IMPRESSION: 1. Chronic age-related and small vessel ischemic changes without mass, hemorrhage or subacute stroke. SL: WR4-M 01/26/2018 - - Read by: Mauricio Jeronimo MD Dictated Date/time: 01/26/18 17:19 Electronically Signed by: Mauricio Jeronimo MD 01/26/18 17:24 FINAL REPORT [facility] Chest 1view DX Chest 1view DX CHEST 1 VIEW INDICATION: Chest pain. Altered mental status COMPARISON: 07/08/2017 chest x-ray FINDINGS: The lungs are clear. The pleura, cardiomediastinal silhouette and bony thorax are normal. IMPRESSION: Negative. END IMPRESSION SL: WR1-M 01/26/2018 - - Read by: Brigido River MD Dictated Date/time: 01/26/18 17:03 Electronically Signed by: Brigido River MD 01/26/18 17:03 FINAL REPORT [facility] CHEM PANEL eGFR 67 mL/min/1.73m2 07/10/2017 Result Comment: The eGFR is calculated using the [...] from the National Kidney Disease Education Program (NKDEP) which additionally recommends that when the eGFR is used in patients with extremes of body mass index for purposes of drug dosing, the eGFR should be multiplied by the estimated BMI. [facility] CHEM PANEL BUN 12 mg/dL 7 - 22 07/10/2017 [facility] CHEM PANEL Creatinine Lvl 1.06 mg/dL 0.50 - 1.40 07/10/2017 [facility] CHEM PANEL Chloride Lvl 97 meq/L 95 - 109 07/10/2017 [facility] CHEM PANEL CO2 28 meq/L 24 - 32 07/10/2017 [facility] CHEM PANEL Calcium Lvl 8.2 mg/dL 8.5 - 10.5 07/10/2017 [facility] CHEM PANEL Sodium Lvl 132 meq/L 135 - 145 07/10/2017 [facility] CHEM PANEL Potassium Lvl 3.9 meq/L 3.5 - 5.1 07/10/2017 [facility] CHEM PANEL Glucose Lvl 181 mg/dL 70 - 99 07/10/2017 [facility] CHEM PANEL AGAP 10.9 meq/L 10.0 - 20.0 07/10/2017 [facility] HEMATOLOGY Segs 73.1 % 45.0 - 75.0 07/10/2017 [facility] Basophils # 0.1 K/CMM 0.0 - 0.2 07/10/2017 [facility] HEMATOLOGY Eosinophils # 0.2 K/CMM 0.0 - 0.5 07/10/2017 [facility] Lymphocytes # 1.6 K/CMM 1.0 - 5.5 07/10/2017 [facility] Monocytes # 0.7 K/CMM 0.0 - 0.8 07/10/2017 [facility] Segs-Bands # 7.2 K/CMM 1.5 - 8.1 07/10/2017 [facility] HEMATOLOGY Basophils 0.6 % 0.0 - 1.0 07/10/2017 [facility] HEMATOLOGY Eosinophils 2.4 % 0.0 - 4.0 07/10/2017 [facility] Lymphocytes 16.4 % 20.0 - 40.0 07/10/2017 [facility] Monocytes 7.5 % 2.0 - 12.0 07/10/2017 [facility] WBC 9.8 K/CMM 3.7 - 10.4 07/10/2017 [facility] RBC 3.73 M/CMM 4.70 - 6.10 07/10/2017 [facility] HEMATOLOGY Hgb 11.4 g/dL 14.0 - 18.0 07/10/2017 [facility] HEMATOLOGY MCV 89.4 fL 80.0 - 94.0 07/10/2017 [facility] MCH 30.6 pg 27.0 - 31.0 07/10/2017 [facility] Hct 33.4 % 42.0 - 54.0 07/10/2017 [facility] MPV 9.7 fL 7.4 - 10.4 07/10/2017 [facility] Platelet 217 K/CMM 133 - 450 07/10/2017 [facility] MCHC 34.2 g/dL 32.0 - 36.0 07/10/2017 [facility] RDW 13.0 % 11.5 - 14.5 07/10/2017 [facility] CHEM PANEL eGFR 53 mL/min/1.73m2 07/09/2017 Result Comment: The eGFR is calculated using the [...] from the National Kidney Disease Education Program (NKDEP) which additionally recommends that when the eGFR is used in patients with extremes of body mass index for purposes of drug dosing, the eGFR should be multiplied by the estimated BMI. [facility] CHEM PANEL CO2 28 meq/L 24 - 32 07/09/2017 [facility] CHEM PANEL Chloride Lvl 98 meq/L 95 - 109 07/09/2017 [facility] CHEM PANEL Sodium Lvl 135 meq/L 135 - 145 07/09/2017 [facility] CHEM PANEL Creatinine Lvl 1.28 mg/dL 0.50 - 1.40 07/09/2017 [facility] CHEM PANEL Potassium Lvl 3.9 meq/L 3.5 - 5.1 07/09/2017 [facility] CHEM PANEL Glucose Lvl 242 mg/dL 70 - 99 07/09/2017 [facility] CHEM PANEL BUN 10 mg/dL 7 - 22 07/09/2017 [facility] CHEM PANEL Calcium Lvl 8.2 mg/dL 8.5 - 10.5 07/09/2017 [facility] CHEM PANEL AGAP 12.9 meq/L 10.0 - 20.0 07/09/2017 [facility] HEMATOLOGY MPV 9.7 fL 7.4 - 10.4 07/09/2017 [facility] Hct 36.8 % 42.0 - 54.0 07/09/2017 [facility] MCV 90.5 fL 80.0 - 94.0 07/09/2017 [facility] MCH 30.9 pg 27.0 - 31.0 07/09/2017 [facility] MCHC 34.2 g/dL 32.0 - 36.0 07/09/2017 [facility] Platelet 215 K/CMM 133 - 450 07/09/2017 [facility] RDW 13.1 % 11.5 - 14.5 07/09/2017 [facility] WBC 10.4 K/CMM 3.7 - 10.4 07/09/2017 [facility] RBC 4.07 M/CMM 4.70 - 6.10 07/09/2017 [facility] Hgb 12.6 g/dL 14.0 - 18.0 07/09/2017 [facility] Lymphocytes 16.4 % 20.0 - 40.0 07/09/2017 [facility] Monocytes 7.9 % 2.0 - 12.0 07/09/2017 [facility] Basophils 0.6 % 0.0 - 1.0 07/09/2017 [facility] Lymphocytes # 1.7 K/CMM 1.0 - 5.5 07/09/2017 [facility] Segs-Bands # 7.7 K/CMM 1.5 - 8.1 07/09/2017 [facility] Eosinophils # 0.2 K/CMM 0.0 - 0.5 07/09/2017 [facility] Monocytes # 0.8 K/CMM 0.0 - 0.8 07/09/2017 [facility] Basophils # 0.1 K/CMM 0.0 - 0.2 07/09/2017 [facility] Eosinophils 1.6 % 0.0 - 4.0 07/09/2017 [facility] Segs 73.5 % 45.0 - 75.0 07/09/2017 [facility] Brain wo contrast MRI Brain wo contrast MRI Clinical Indication: - rule out cva; short-term memory loss Comparison: CT 07/07/2017 TECHNIQUE: Multiplanar multisequence imaging of the brain is performed. Contrast: None. FINDINGS: BRAIN PARENCHYMA: There is mild atrophy. There are moderate areas of increased FLAIR signal in the cerebral white matter. There is no mass effect or midline shift. There is no extra-axial fluid collection or intraparenchymal hemorrhage. The corpus callosum appears normal. Small focus of increased DWI signal in the medial anterior right parietal region is seen on sequence 6 image 46 and measures 3 mm. Corresponding area of decreased ADC map signal is seen on sequence 7 image 19. There is no magnetic susceptibility to suggest recent or remote intracranial hemorrhage. CEREBELLOPONTINE REGIONS AND SKULL BASE: The cerebellopontine angles appear unremarkable. The skull base, craniocervical junction, and brainstem are normal. The optic chiasm is normal. The sellar and pineal regions are unremarkable. VENTRICLES: The ventricles are normal in size and configuration. The basilar cisterns are normal. VESSELS: The venous sinuses are grossly unremarkable. The expected intracranial flow voids are present. ORBITS, VISUALIZED PARANASAL SINUSES AND MASTOIDS: The visualized orbits and paranasal sinuses are unremarkable. The mastoid air cells are clear. IMPRESSION: 1. Possible 3 mm infarct involving the medial anterior right parietal cortex. 2. No acute intracranial hemorrhage. 3. Moderate chronic microvascular ischemic changes and mild atrophy. SL: CL76-M 07/09/2017 - - Read by: Eleazar Marks MD Dictated Date/time: 07/09/17 12:16 Electronically Signed by: Eleazar Marks MD 07/09/17 12:24 FINAL REPORT [facility] URINE AND STOOL UA Nitrite Negative (07/08/17 9:19 PM) Negative 07/09/2017 [facility] URINE AND STOOL UA Blood Large *ABN* (07/08/17 9:19 PM) Negative 07/09/2017 [facility] URINE AND STOOL UA Bili Negative *NA* (07/08/17 9:19 PM) Negative 07/09/2017 [facility] URINE AND STOOL UA Color Red 07/09/2017 [facility] URINE AND STOOL UA Urobilinogen <=1.0 mg/dL 0.1 - 1.0 07/09/2017 [facility] URINE AND STOOL UA Bacteria Few /HPF None Seen /HPF 07/09/2017 [facility] URINE AND STOOL UA Friant Yeast Occasional /HPF None Seen /HPF 07/09/2017 [facility] URINE AND STOOL UA WBC null 0 - 5 07/09/2017 [facility] URINE AND STOOL UA RBC null 0 - 2 07/09/2017 [facility] URINE AND STOOL UA Leuk Est Negative (07/08/17 9:19 PM) Negative 07/09/2017 [facility] URINE AND STOOL UA Sq Epi None Seen 07/09/2017 [facility] URINE AND STOOL UA pH 6.0 5.0 - 8.0 07/09/2017 [facility] URINE AND STOOL UA Protein 100 mg/dL Negative mg/dL 07/09/2017 [facility] URINE AND STOOL UA Glucose 150 mg/dL Negative mg/dL 07/09/2017 [facility] URINE AND STOOL UA Ketones Trace mg/dL Negative mg/dL 07/09/2017 [facility] URINE AND STOOL UA Spec Grav 1.021 <=1.030 07/09/2017 [facility] URINE AND STOOL UA Turbidity Slight *ABN* (07/08/17 9:19 PM) Clear 07/09/2017 [facility] Chest 1view DX Chest 1view DX Portable chest: The cardiomediastinal silhouette and pulmonary vasculature are within normal limits. The lungs and pleural spaces are clear. There are no acute osseous abnormalities. IMPRESSION: No acute radiographic abnormality in the chest. [id number] 07/08/2017 - - Read by: Waylon Taylor MD Dictated Date/time: 07/08/17 16:40 Electronically Signed by: Waylon Taylor MD 07/08/17 16:40 FINAL REPORT [facility] Carotid artery Doppler bilat US Carotid artery Doppler bilat US BILATERAL CAROTID DOPPLER: HISTORY: Speech disturbance and altered mental status. TECHNIQUE: Triplex evaluation of the cervical carotid and vertebral vasculature was done. Stenosis estimates are based on Consensus Panel and NASCET Criteria. FINDINGS: There is moderate intimal thickening in the carotid vasculature with mild echogenic plaque in the carotid bulbs. The peak systolic velocity in the right common carotid artery is 132 cm/s. The peak systolic velocity in the right internal carotid artery is 94 cm/s, with a right systolic velocity ratio of 0.7. The peak systolic velocity in the left common carotid artery is 118 cm/s. The peak systolic velocity in the left internal carotid artery is 128 cm/s, with a left systolic velocity ratio of 1.1. Antegrade flow is demonstrated in the vertebral arteries. IMPRESSION: No evidence of significant carotid stenosis. [id number] 07/08/2017 - - Read by: Waylon Taylor MD Dictated Date/time: 07/08/17 09:48 Electronically Signed by: Waylon Taylor MD 07/08/17 09:50 FINAL REPORT [facility] ELECTROLYTES Sodium Lvl 134 meq/L 135 - 145 07/08/2017 [facility] Creatinine Lvl 1.14 mg/dL 0.50 - 1.40 07/08/2017 [facility] ELECTROLYTES BUN 15 mg/dL 7 - 22 07/08/2017 [facility] ELECTROLYTES Glucose Lvl 163 mg/dL 70 - 99 07/08/2017 [facility] ELECTROLYTES Potassium Lvl 3.8 meq/L 3.5 - 5.1 07/08/2017 [facility] ELECTROLYTES eGFR 61 mL/min/1.73m2 07/08/2017 Result Comment: The eGFR is calculated using the [...] from the National Kidney Disease Education Program (NKDEP) which additionally recommends that when the eGFR is used in patients with extremes of body mass index for purposes of drug dosing, the eGFR should be multiplied by the estimated BMI. [facility] ELECTROLYTES Globulin 3.3 g/dL 2.7 - 4.2 07/08/2017 [facility] ELECTROLYTES B/C Ratio 13 6 - 25 07/08/2017 [facility] ELECTROLYTES A/G Ratio 1.0 0.7 - 1.6 07/08/2017 [facility] ELECTROLYTES Calcium Lvl 8.3 mg/dL 8.5 - 10.5 07/08/2017 [facility] ELECTROLYTES Albumin Lvl 3.4 g/dL 3.5 - 5.0 07/08/2017 [facility] ELECTROLYTES Total Protein 6.7 g/dL 6.4 - 8.4 07/08/2017 [facility] ELECTROLYTES CO2 25 meq/L 24 - 32 07/08/2017 [facility] ELECTROLYTES Chloride Lvl 99 meq/L 95 - 109 07/08/2017 [facility] ELECTROLYTES ALT 21 unit/L 0 - 65 07/08/2017 [facility] ELECTROLYTES Alk Phos 34 unit/L 39 - 136 07/08/2017 [facility] ELECTROLYTES AST 10 unit/L 0 - 37 07/08/2017 [facility] ELECTROLYTES AGAP 13.8 meq/L 10.0 - 20.0 07/08/2017 [facility] ELECTROLYTES Bili Total 0.7 mg/dL 0.2 - 1.3 07/08/2017 [facility] HEMATOLOGY Lymphocytes # 0.9 K/CMM 1.0 - 5.5 07/08/2017 [facility] HEMATOLOGY Monocytes # 0.6 K/CMM 0.0 - 0.8 07/08/2017 [facility] HEMATOLOGY Segs 90.2 % 45.0 - 75.0 07/08/2017 [facility] HEMATOLOGY Lymphocytes 5.7 % 20.0 - 40.0 07/08/2017 [facility] HEMATOLOGY Eosinophils 0.1 % 0.0 - 4.0 07/08/2017 [facility] HEMATOLOGY Basophils 0.3 % 0.0 - 1.0 07/08/2017 [facility] HEMATOLOGY Monocytes 3.7 % 2.0 - 12.0 07/08/2017 [facility] HEMATOLOGY Segs-Bands # 15.1 K/CMM 1.5 - 8.1 07/08/2017 [facility] HEMATOLOGY PT 13.7 s 12.0 - 14.7 07/08/2017 [facility] HEMATOLOGY INR 1.05 0.85 - 1.17 07/08/2017 [facility] PTT 31.0 s 22.9 - 35.8 07/08/2017 [facility] RDW 12.9 % 11.5 - 14.5 07/08/2017 [facility] HEMATOLOGY Platelet 244 K/CMM 133 - 450 07/08/2017 [facility] MCHC 33.5 g/dL 32.0 - 36.0 07/08/2017 [facility] MCH 30.2 pg 27.0 - 31.0 07/08/2017 [facility] HEMATOLOGY MPV 9.5 fL 7.4 - 10.4 07/08/2017 [facility] MCV 90.0 fL 80.0 - 94.0 07/08/2017 [facility] Hct 42.3 % 42.0 - 54.0 07/08/2017 [facility] Hgb 14.2 g/dL 14.0 - 18.0 07/08/2017 [facility] HEMATOLOGY WBC 16.7 K/CMM 3.7 - 10.4 07/08/2017 [facility] HEMATOLOGY RBC 4.70 M/CMM 4.70 - 6.10 07/08/2017 [facility] LIPIDS VLDL 11 07/08/2017 [facility] LIPIDS LDL (Calculated) 39 mg/dL <=99 mg/dL 07/08/2017 [facility] LIPIDS HDL 59 mg/dL >=61 mg/dL 07/08/2017 [facility] LIPIDS Trig 56 mg/dL <=149 mg/dL 07/08/2017 [facility] LIPIDS Chol 109 mg/dL <=199 mg/dL 07/08/2017 [facility] LIPIDS CHD Risk 1.85 4.00 - 7.30 07/08/2017 [facility] SPECIAL CHEMISTRY Hgb A1C 6.6 % <=5.6 % 07/08/2017 [facility] Brain wo contrast CT Brain wo contrast CT Images and report reviewed, concur. Clinical Indication: Aphasia - PMH CVA, POST OP EXPRESSIVE APHASIA NEW. Severe confusion. Comparison: None. TECHNIQUE: Sequential trans-axial images were obtained through the head without the administration of IV iodinated contrast. Coronal and sagittal reconstructions were obtained. Dose: WNH=982 mGy-cm Findings: Supratentorial brain: There is moderate to severe decreased attenuation throughout the deep and periventricular white matter bilaterally consistent with chronic small vessel ischemic change. No mass. No evidence of a large subacute infarct. Brainstem and cerebellum: Old small lacunar infarct within the right cerebellar hemisphere series 2 image 14. Ventricles, sulci and extra-axial spaces: Mildly prominent consistent with mild diffuse cerebral atrophy. No hemorrhage. Orbits: Normal. Paranasal sinuses: Normal. IMPRESSION: Old right cerebellar lacunar infarct. Moderate to severe periventricular white matter disease consistent with chronic small vessel ischemia. Mild diffuse cerebral atrophy. No mass, hemorrhage or large subacute infarct. Note: if there is a high clinical suspicion of acute infarction and appropriate diagnosis would change clinical management then an MRI could be performed for further evaluation. SL: NLELSIE 07/07/2017 - - Read by: Shweta Colvin MD Dictated Date/time: 07/07/17 23:21 Electronically Signed by: Shweta Colvin MD 07/07/17 23:31 FINAL REPORT - - Read by: Moe Lopez MD Dictated Date/time: 07/07/17 23:12 Electronically Signed by: Moe Lopez MD 07/07/17 23:19 FINAL REPORT [facility] HEMATOLOGY Eosinophils # 0.2 K/CMM 0.0 - 0.5 07/03/2017 [facility] HEMATOLOGY Basophils # 0.1 K/CMM 0.0 - 0.2 07/03/2017 [facility] HEMATOLOGY INR 1.00 0.85 - 1.17 07/03/2017 [facility] HEMATOLOGY PT 13.2 s 12.0 - 14.7 07/03/2017 [facility] HEMATOLOGY PTT 33.9 s 22.9 - 35.8 07/03/2017 [facility] LIPIDS CHD Risk 2.03 4.00 - 7.30 07/03/2017 [facility] LIPIDS VLDL 17 07/03/2017 [facility] LIPIDS LDL (Calculated) 43 mg/dL <=99 mg/dL 07/03/2017 [facility] LIPIDS Trig 87 mg/dL <=149 mg/dL 07/03/2017 [facility] LIPIDS HDL 58 mg/dL >=61 mg/dL 07/03/2017 [facility] LIPIDS Chol 118 mg/dL <=199 mg/dL 07/03/2017 [facility] Vital Signs Vital Sign Value Date Comments Source Heart Rate 69 07/10/2017 [facility] Systolic (mm Hg) 178 07/10/2017 [facility] Diastolic (mm Hg) 62 07/10/2017 [facility] Temperature Oral (F) 98 F 07/10/2017 [facility] Heart Rate 62 07/10/2017 [facility] Systolic (mm Hg) 135 07/10/2017 [facility] Diastolic (mm Hg) 72 07/10/2017 [facility] Temperature Oral (F) 98 F 07/10/2017 [facility] Heart Rate 70 07/10/2017 [facility] Systolic (mm Hg) 181 07/10/2017 [facility] Diastolic (mm Hg) 92 07/10/2017 [facility] Temperature Oral (F) 97.8 F 07/10/2017 [facility] Respitory Rate 18 07/10/2017 [facility] Respitory Rate 18 07/10/2017 [facility] Respitory Rate 18 07/10/2017 [facility] BMI Calculated 26.05 07/08/2017 [facility] Weight 77.727 07/08/2017 [facility] Height 172.72 cm 07/08/2017 [facility] Weight 80.653 07/03/2017 [facility] BMI Calculated 27.04 07/03/2017 [facility] Height 172.72 cm 07/03/2017 [facility] Encounters Location Location Details Encounter Type Encounter Number Reason For Visit Attending Provider ADM Date DC Date Status Source [facility] Inpatient [id number] Varun Howell 07/08/2017 07/10/2017 [facility] Procedures Procedure Code Date Perfomer Comments Source Appendectomy [id number] [facility] Cholecystectomy [id number] [facility] Colonoscopy [id number] [facility] Esophagogastroduodenoscopy [id number] [facility] Repair of diaphragmatic hiatal hernia [id number] [facility]
--- NOTE | 2018-04-28 13:23 | NUR ---
ESCORTED PT TO CT SCAN TO R/O STROKE @ 1318. 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 PT STILL HAVING DIFFICULTY FORMING SENTENCES AT THIS TIME.
--- NOTE | 2018-04-28 13:57 | Diagnostic Imaging Report ---
EXAMINATION: Head CT HISTORY: Slurred speech, evaluate for acute stroke COMPARISON: Head CT on 11/14/2015 and brain MRI on 11/16/2015 TECHNIQUE: Multidetector axial images were obtained without contrast from the foramen magnum to the vertex . The images were reconstructed using brain and bone algorithms. Thin section brain images were reformatted into coronal and sagittal planes. Image quality: Motion/streaking artifact limits the evaluation of the skull base and posterior cranial fossa. Dose modulation, iterative reconstruction, and/or weight based adjustment of the mA/kV was utilized to reduce the radiation dose to as low as reasonably achievable. FINDINGS: Parenchyma: 1. Moderate confluent periventricular, jones radiata and centrum semiovale white matter hypodensities, most likely nonspecific chronic microvascular ischemic changes. 2. No mass or hemorrhage. No CT evidence of acute territorial vascular insult. 3. Unchanged tiny chronic infarct in the left jadiel and right cerebellum. Extra-axial spaces:No abnormal density. No extra-axial fluid collections Brain volume: Normal for age. Ventricles: No hydrocephalus or displacement. Arteries: No density suggestive of thrombus. Dural sinuses: No abnormal density. Extra-axial spaces: No abnormal density. Foramen magnum: No mass, Chiari malformation, or basilar invagination. Sella: No obvious mass. Paranasal/mastoid sinuses: Imaged portions unremarkable. Skull/Scalp: No lytic or blastic lesions. No fractures. IMPRESSION: 1. No acute intracranial hemorrhage or cortical infarcts. 2. Persistent moderate chronic microvascular ischemic changes and small chronic lacunar infarcts. Signed by: Dr. Lana Castro M.D. on 04/28/2018 1:54 PM
[2018-04-28 14:29] LABS: BASOPHILS # (AUTO) 0.1 (0.0-0.1); BASOPHILS % 0.6 % (0.0-1.0); EOSINOPHILS # (AUTO) 0.3 (0.0-0.4); HEMATOCRIT 37.7 % (38.2-49.6); HEMOGLOBIN 11.9 g/dL (14.0-18.0); LYMPHOCYTES # (AUTO) 1.5 (1.0-3.2); LYMPHOCYTES % 18.6 % (18.0-39.1); MEAN CORPUSCULAR HEMOGLOBIN 26.8 pg (28-32); MEAN CORPUSCULAR HGB CONC 31.6 g/dL (31-35); MEAN CORPUSCULAR VOLUME 84.9 fL (81-99); MONOCYTES # (AUTO) 0.5 (0.2-0.8); MONOCYTES % 6.5 % (4.4-11.3); NEUTROPHILS # (AUTO) 5.6 (2.1-6.9); NEUTROPHILS % 69.9 % (38.7-80.0); PLATELET COUNT 263 x10e3/uL (140-360); RED BLOOD COUNT 4.44 x10e6/uL (4.3-5.7); RED CELL DISTRIBUTION WIDTH 13.7 % (11.7-14.4)
[2018-04-28 14:38] LABS: INR 0.95; PROTHROMBIN TIME 13.6 seconds (11.9-14.5)
[2018-04-28 14:39] LABS: PARTIAL THROMBOPLASTIN TIME 27.3 seconds (23.8-35.5)
--- NOTE | 2018-04-28 14:42 | Diagnostic Imaging Report ---
EXAMINATION: CHEST SINGLE (PORTABLE) INDICATION: Possible stroke COMPARISON: None FINDINGS: TUBES and LINES: None. LUNGS: Lungs are well inflated. There is no evidence of pneumonia or pulmonary edema. PLEURA: No pneumothorax. Minimal blunting of the left costophrenic angle could represent scarring or trace pneumothorax. HEART AND MEDIASTINUM: The cardiomediastinal silhouette is unremarkable. Atherosclerotic calcifications of the aortic arch. BONES AND SOFT TISSUES: No acute osseous lesion. Surgical clips project over the right lateral hemithorax. UPPER ABDOMEN: No free air under the diaphragm. IMPRESSION: No acute radiographic abnormality. Signed by: Dr. Jonathon Sanchez MD on 04/28/2018 2:39 PM
[2018-04-28 14:48] LABS: ALBUMIN 3.7 g/dL (3.5-5.0); ALBUMIN/GLOBULIN RATIO 1.3 (0.8-2.0); ANION GAP 14.2 mmol/L (8-16); CALCIUM 9.3 mg/dL (8.4-10.2); CREATININE, SERUM 1.48 mg/dL (0.72-1.25); MAGNESIUM 1.6 MG/DL (1.3-2.1); POTASSIUM 4.2 mmol/L (3.5-5.1)
[2018-04-28 14:55] LABS: CREATINE KINASE MB 1.5 ng/mL (0-5.0)
--- OUTSIDE RECORDS SUMMARY | 2018-04-28 16:23 | XMS REPORT ---
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 Allergies, Adverse Reactions, Alerts This patient has no known allergies or adverse reactions. Medications This patient has no known medications. Results Test Description Test Time Test Comments Text Results Atomic Results Result Comments CHEST SINGLE (PORTABLE) 2018-04-28 14:37:00 [facility] [address] [address] Patient Name: TAYLOR ROBLEDO MR #: [id number] : 1940 Age/Sex: 78/M Req #: [id number] Adm Physician: Ordered by: WILL MEREDITH TOBACCO SPRAYER Report #: [id number] Location: ER Room/Bed: Procedure: [id number] DX/CHEST SINGLE (PORTABLE) Exam Date: 04/28/18 Exam Time: 1409 REPORT STATUS: Signed EXAMINATION: CHEST SINGLE (PORTABLE) IND ICATION: Possible stroke COMPARISON: None FINDINGS: TUBES and LINES: None. LUNGS: Lungs are well inflated. There is no evidence of pneumonia or pulmonary edema. PLEURA: No pneumothorax. Minimal blunting of the left costophrenic angle could represent scarring or trace pneumothorax. HEART AND MEDIASTINUM: The cardiomediastinal silhouette is unremarkable. Atherosclerotic calcifications of the aortic arch. BONES AND SOFT TISSUES: No acute osseous lesion. Surgical clips project over the right lateral hemithorax. UPPER ABDOMEN: No free air under the diaphragm. IMPRESSION: No acute radiographic abnormality. Signed by: Dr. Gerardo Burns MD on 04/28/2018 2:39 PM Dictated By: GERARDO BURNS MD 38 Transcribed By: THANIA on 04/28/181438 COPY TO: WILL MEREDITH NP CT BRAIN WO 2018-04-28 13:48:00 [address] [address] Patient Name: TAYLOR ROBLEDO MR #: [id number] : 1940 Age/Sex: 78/M Req #: [id number] Adm Physician: Ordered by: DOMONIQUE AGUILAR MD Report #: [id number] Location: ER Room/Bed: Procedure: [id number] CT/CT BRAIN WO Exam Date: Exam Time: REPORT STATUS: Signed EXAMINATION: Head CT HISTORY: Slurred speech, evaluate for acute stroke COMPARISON: Head CT on 11/14/2015 and brain MRI on 11/16/2015 TECHNIQUE: Multidetector axial images were obtained without contrast from the foramen magnum to the vertex . The images were reconstructed using brain and bone algorithms. Thin section brain images were reformatted into coronal and sagittal planes. Image quality: Motion/streaking artifact limits the evaluation of the skull base and posterior cranial fossa. Dose modulation, iterative reconstruction, and/or weight based adjustment of the mA/kV was utilized to reduce the radiation dose to as low as reasonably achievable. FINDINGS: Parenchyma: 1. Moderate confluent periventricular, jones radiata and centrum semiovale white matter hypodensities, most likely nonspecific chronic microvascular ischemic changes. 2. No mass or hemorrhage. No CT evidence of acute territorial vascular insult. 3. Unchanged tiny chronic infarct in the left jadiel and right cerebellum. Extra-axial spaces:No abnormal density. No extra-axial fluid collections Brain volume: Normal for age. Ventricles: No hydrocephalus or displacement. Arteries: No density suggestive of thrombus. Dural sinuses: No abnormal density. Extra-axial spaces: No abnormal density. Foramen magnum: No mass, Chiari malformation, or basilar invagination. Sella: No obvious mass. Paranasal/mastoid sinuses: Imaged portions unremarkable. Skull/Scalp: No lytic or blastic lesions. No fractures. IMPRESSION: 1. No acute intracranial hemorrhage or cortical infarcts. 2. Persistent moderate chronic microvascular ischemic changes and small chronic lacunar infarcts. Signed by: Dr. Irma Castro M.D. on 04/28/2018 1:54 PM Dictated By: IRMA CASTRO MD [id number] Transcribed By: THANIA on 04/28/18 1350 COPY TO: DOMONIQUE AGUILAR MD
[2018-04-28 16:43] LABS: BILIRUBIN,URINE NEGATIVE (NEGATIVE); CLARITY,URINE SL CLOUDY (CLEAR); COLOR,URINE YELLOW (YELLOW); KETONES,URINE NEGATIVE (NEGATIVE); LEUKOCYTE ESTERASE ,URINE NEGATIVE (NEGATIVE); NITRITE,URINE NEGATIVE (NEGATIVE); PROTEIN,URINE DIPSTICK NEGATIVE (NEGATIVE); URINE UROBILINOGEN 0.2 mg/dL (0.2 - 1)
[2018-04-28] MEDS ORDERED: ACETAMINOPHEN 325 MG TAB PO ONE (16:45)
[2018-04-28 16:52] LABS: BACTERIA,URINE FEW /HPF; MUCUS,URINE MODERATE (RARE); WBC,URINE (MAN) 0-5 /HPF (0-5)
[2018-04-28 17:15] VITALS: BP 187/88
--- NOTE | 2018-04-28 17:15 | NUR ---
Pt received from ER. Pt oriented to staff and surroundings. Pt noted with upper extremities bruises, stated that he takes Plavix. As per Dr. Marcia Schulte, do not give any BP meds for now. Call jones within reach. Emotional support given. Will monitor
--- NOTE | 2018-04-28 18:50 | NUR ---
patient recieved awake, alert, lying quietly in bed. no c/o pain noted. respirations even and unlabored. pm assessment complete. patient instructed to call for assistance when needed.
[2018-04-28] MEDS ORDERED: PLAVIX75 MG PO (18:51)
[2018-04-28] MEDS ORDERED: ACCUPRIL20 MG PO (18:51)
[2018-04-28] MEDS ORDERED: ASPIRIN81 MG PO (18:51)
[2018-04-28] MEDS ORDERED: ACIDOPHILUS1 EAC4 PO (18:51)
[2018-04-28] MEDS ORDERED: B COMPLEX1 EACH PO (18:51)
[2018-04-28 20:00] VITALS: BP 163/89
[2018-04-28] MEDS: SIMVASTATIN 40 MG TAB PO SCH (20:04)
[2018-04-28] MEDS ORDERED: ACETAMINOPHEN 325 MG TAB PO PRN (20:15)
[2018-04-28] MEDS ORDERED: ACETAMINOPHEN 325 MG TAB ONE (20:27)
--- NOTE | 2018-04-28 20:28 | NUR ---
patient medicated with tylenol 650 mg po for c/o headache. will continue to monitor.
[2018-04-29] VITALS (7 sets, daily range): BP systolic 139–223; BP diastolic 72–91
--- NOTE | 2018-04-29 00:37 | Consultation ---
DATE OF CONSULTATION: April 28, 2018 CARDIOLOGY CONSULTATION REASON FOR CONSULTATION: TIA. CHIEF COMPLAINT: Garbled speech. HISTORY OF PRESENT ILLNESS: Patient is a 78-year-old man with history of coronary artery disease, currently on aspirin and Plavix, who presented to the office for carotid ultrasound as well as echocardiogram. While he was in the office, he had a witnessed episode of aphasia, mostly expressive. Denies any weakness or facial drooping. Episode lasted several minutes and resolved on its own. Given concern for TIA, patient was sent to the hospital. Currently, he feels well. No complaints. No chest pain. No shortness of breath. REVIEW OF SYSTEMS: As above, otherwise negative. PAST MEDICAL HISTORY 1. Coronary artery disease. 2. Hypertension. 3. Hyperlipidemia. SOCIAL HISTORY: Does not smoke, drink or abuse drugs. FAMILY HISTORY: No family history of early CAD or sudden cardiac . OBJECTIVE VITAL SIGNS: Temperature 96.6, pulse 70, respiratory rate 18, blood pressure 156/78, satting 100% on room air. GENERAL: Elderly white man, no acute distress. CARDIOVASCULAR: Regular rate and rhythm. No murmurs, rubs or gallops. Palpable carotid pulses. Palpable radial pulses. LUNGS: Clear to auscultation bilaterally. ABDOMEN: Soft, nontender, nondistended. NEURO AND PSYCH: Alert and oriented to person, place, and time. Normal affect. MEDICATIONS: Outpatient and inpatient medications reviewed. LABORATORY DATA: Reviewed. IMAGING DATA: Reviewed. Brain CT without any abnormalities, no masses or hemorrhage. Chest x-ray shows no acute abnormalities. ASSESSMENT 1. Coronary artery disease. 2. Transient ischemic attack. 3. Hypertension. 4. Hyperlipidemia. PLAN: Permissive hypertension. Will hold antihypertensive for now. Continue home antiplatelet therapy. Will continue to monitor on telemetry. Remains in sinus rhythm for now. Repeat echo and carotid Dopplers. Thank you for this consult. Will continue to follow. Job#: [id number] [employer]
[2018-04-29] MEDS: LEVOTHYROXINE SODIUM 100 MCG TAB PO SCH (05:39)
[2018-04-29] MEDS ORDERED: METFORMIN HCL 500 MG TAB PO SCH (08:00)
[2018-04-29] MEDS ORDERED: NATEGLINIDE 120 MG TAB PO SCH (08:00)
[2018-04-29] MEDS: ASPIRIN 81 MG CHEW TAB PO SCH (08:49)
[2018-04-29] MEDS: LACTOBACILLUS ACIDOPHILUS CAPSULE PO SCH (08:49)
[2018-04-29] MEDS: TAMSULOSIN HCL 0.4 MG CAP PO SCH (08:49)
[2018-04-29] MEDS: FOLIC ACID/CYANOCOB/PYRIDOXINE TAB PO SCH (08:49)
[2018-04-29] MEDS: CLOPIDOGREL BISULFATE 75 MG TAB PO SCH (08:49)
[2018-04-29] MEDS: PANTOPRAZOLE SOD 40 MG TABEC PO SCH ×2 (08:50→17:24)
--- NOTE | 2018-04-29 08:50 | NUR ---
Pt received resting in bed. Pt is for MRI of Head today. All meds given as ordered. Call jones within reach. Emotional support given. Will monitor
[2018-04-29] MEDS ORDERED: DIAZEPAM 5 MG TAB PO SCH (09:00)
[2018-04-29] MEDS ORDERED: NON-FORMULARY MEDICATION (Vitamin B Complex (B Complex) 1 TAB) PO SCH (09:00)
[2018-04-29] MEDS ORDERED: QUINAPRIL HCL 20 MG TAB PO SCH (09:00)
[2018-04-29] MEDS ORDERED: NON-FORMULARY MEDICATION (Lactobacillus Acidophilus (Acidophilus) 1 TAB) PO SCH (09:00)
[2018-04-29] MEDS ORDERED: SIMVASTATIN 80 MG TAB PO SCH (09:00)
[2018-04-29] MEDS ORDERED: NON-FORMULARY MEDICATION (Quinapril Hcl 40 MG) PO SCH (09:00)
[2018-04-29] MEDS ORDERED: DIAZEPAM 5 MG TAB PO PRN ×2 (09:00→12:00)
[2018-04-29] MEDS ORDERED: ATENOLOL 50 MG TAB PO SCH (09:00)
[2018-04-29] MEDS ORDERED: LEVOTHYROXINE SODIUM 100 MCG TAB PO SCH (09:00)
[2018-04-29] MEDS ORDERED: SIMVASTATIN 40 MG TAB PO SCH (09:00)
[2018-04-29] MEDS ORDERED: DIAZEPAM INJ 5 MG/ML 2 ML IV STA (11:39)
[2018-04-29] MEDS ORDERED: LORAZEPAM INJ 2 MG/ML VIAL IV STA (11:58)
--- NOTE | 2018-04-29 12:39 | NUR ---
Pt leaving for MRI. Ativan given
--- NOTE | 2018-04-29 14:05 | NUR ---
Pt returned from MRI
--- NOTE | 2018-04-29 15:06 | Diagnostic Imaging Report ---
Examination: MRI BRAIN WITHOUT CONTRAST History: TIA. Comparison studies: Head CT performed on April 28, 2018. Technique: Sagittal T2; axial DWI, FLAIR, GRE or SWI, T1, Coronal FLAIR. Intravenous contrast: None Findings: Scalp: No abnormal signal. No masses. Bone marrow: Normal in signal intensity. Brain volume: Adequate for age. No volume loss. Ventricles: Normal in size and configuration. No hydrocephalus. Extra-axial spaces: No acute abnormality. Parenchyma: There are patchy and confluent areas of T2/FLAIR hyperintensity in the periventricular and subcortical white matter, nonspecific. Chronic lacunar infarcts are again demonstrated in the left paramedian jadiel and right cerebellum. No masses, hemorrhage, acute or chronic vascular insults. Suprasellar and sellar region: No abnormalities. Craniocervical junction: No abnormalities. The foramen magnum is patent. No Chiari malformations. Vessels: Normal flow-voids in the arteries and sinuses. Additional findings:None. IMPRESSION: 1. No new acute intracranial abnormalities, specifically, no acute infarct. 2. Unchanged moderate to severe chronic microvascular ischemic change and chronic lacunar infarcts, as above. Signed by: Dr. Rosenda Duran M.D. on 04/29/2018 3:02 PM
[2018-04-29] MEDS ORDERED: HYDRALAZINE HCL 20 MG/ML VIAL IV PRN (15:30)
[2018-04-29] MEDS: QUINAPRIL HCL 20 MG TAB PO SCH (17:24)
[2018-04-29] MEDS: METFORMIN HCL 500 MG TAB PO SCH (17:24)
[2018-04-29] MEDS: ATENOLOL 50 MG TAB PO SCH (17:25)
--- NOTE | 2018-04-29 17:44 | NUR ---
Pt resting comfortably in bed with at bedside. MRI head negative. Pt given BP meds as ordered. Emotional support given. Call jones within reach. Will endorse to next shift
[2018-04-29 18:22] LABS: CHOL/HDL RATIO 1.9 (3.9-4.7)
--- NOTE | 2018-04-29 19:00 | NUR ---
patient recieved awake, alert, lying quietly in bed. vss. no c/o pain noted. pm assessment complete. patient instructed to call for assistance when needed.
--- NOTE | 2018-04-29 20:01 | Progress Note ---
DATE: CARDIOLOGY PROGRESS NOTE SUBJECTIVE: Patient feeling overall better. Denies any chest pain, shortness of breath, or other neurologic events. OBJECTIVE: VITAL SIGNS: Temperature 97.3, heart rate 63, respirations are 18, blood pressure is 190/88. GENERAL: He is well appearing, well built, in no apparent distress. CARDIOVASCULAR: Regular rate and rhythm. LUNGS: Clear to auscultation. ABDOMEN: Soft, nontender, nondistended. NEUROLOGICAL: No focal deficits noted. MRI of the brain showed no acute intracranial abnormalities, microvascular infarcts. ASSESSMENT: 1. Coronary artery disease. 2. Transient ischemic attack. 3. Hypertension. 4. Hyperlipidemia. RECOMMENDATIONS: Patient is currently receiving permissive hypertension. Blood pressure goals to be set by neurology. If required, we can reinitiate multiple antihypertensives for adequate blood pressure control. Continue other home antiplatelet therapies. An echocardiogram has been ordered and will review this once this has been resulted. Will continue to follow. Job#: [id number]
[2018-04-29] MEDS: HEPARIN SOD (PORCINE) 5,000 UNIT/ML VIAL SC SCH (20:12)
[2018-04-29] MEDS: SIMVASTATIN 40 MG TAB PO SCH (20:12)
--- NOTE | 2018-04-29 23:53 | Consultation ---
DATE OF CONSULTATION: April 29, 2018 HISTORY OF PRESENT ILLNESS: Mr. Cueto is a 78-year-old right hand dominant man with multiple vascular risk factors, admitted to [facility] on April 28, 2018, for a transient ischemic attack. On the afternoon of April 28, 2018, the patient was at his scalp treatment operator's office (Dr. Howell) undergoing bilateral carotid artery ultrasound with Doppler. When he experiences sudden onset of expressive aphasia, right facial droop, dizziness which is further described as lightheadedness, and confusion. When questioned further regarding his confusion, Mr. Cueto reports he was confused as to why he was unable to speak. The patient does not report a visual field cut or other disturbance, hemiparesis, or hemihypoesthesia. Mr. Cueto was instructed to proceed to the emergency center at [facility] for further evaluation of the symptoms. By the time the patient reached the emergency center at [facility], his symptoms had significantly improved/resolved. Upon arrival in the emergency center, the patient was afebrile with a blood pressure 161/73 mmHg and a pulse of 66 beats per minute. The patient's neurological examination was documented as being nonfocal. However, the patient was given an NIH Stroke Scale score of 2 with 1 point given for mild to moderate dysarthria and 1 point given for extinction and inattention. While in the emergency center, a CT of the brain without contrast was performed. This study did not reveal recent large territorial ischemia or hemorrhage. Mr. Cueto was admitted to [facility] for further evaluation and treatment of his symptoms. The patient does not report experiencing similar symptoms previously. Mr. Cueto endorses compliance with his home medications of aspirin 81 mg by mouth daily and Plavix 75 mg by mouth daily. REVIEW OF SYSTEMS: Confusion, expressive aphasia, right facial weakness, and dizziness which is further described as lightheadedness. Otherwise, the 12-point review of systems is negative. PAST MEDICAL HISTORY: Hypertension, hyperlipidemia, diabetes mellitus type 2, thyroid disease, gastroesophageal reflux disease, and benign prostatic hypertrophy. PAST SURGICAL HISTORY: Appendectomy, cholecystectomy, removal of a rib on the left. PAST HOSPITALIZATIONS: Surgeries/procedures as listed. FAMILY MEDICAL HISTORY: The patient's paternal and maternal grandparents are . Their medical histories are unknown. The patient's father is from mesothelioma. Mr. Cueto's mother is from a stroke. The patient has 4 brothers, all of whom are alive. Their medical histories are unknown. Mr. Cueto has 2 children, both sons, who are reportedly healthy. SOCIAL HISTORY: The patient is . He is retired. The patient does report a prior history of tobacco use, but quit smoking cigarettes in 1969. The patient does not report current or prior alcohol or recreational drug use. HOME MEDICATIONS 1. Aspirin 81 mg by mouth daily. 2. Plavix 75 mg by mouth daily. 3. Atenolol 50 mg by mouth daily. 4. Quinapril 20 mg by mouth daily. 5. Quinapril 40 mg by mouth daily. 6. Simvastatin 80 mg by mouth at bedtime daily. 7. Metformin 500 mg by mouth twice daily with meals. 8. Starlix 60 mg by mouth daily. 9. Diazepam 10 mg by mouth daily as needed. 10. Nexium 40 mg by mouth twice daily. 11. Lactobacillus 1 tablet by mouth daily. 12. Levothyroxine 100 mcg by mouth daily. 13. Tamsulosin 0.4 mg by mouth daily. 14. Vitamin B complex 1 tablet by mouth daily. ALLERGIES: TETANUS VACCINE AND TOXOIDS. NO KNOWN FOOD ALLERGIES. NO KNOWN ALLERGIES TO LATEX. NO KNOWN ALLERGIES TO IODINE OR OTHER CONTRAST MATERIALS. PHYSICAL EXAMINATION VITAL SIGNS: Height 68 inches, weight 176 pounds, BMI 26.8 kg per meter squared. Blood pressure 223/91 mmHg, pulse 65 beats per minute, respiratory rate 16 breaths per minute, oxygen saturation 97% on room air. GENERAL: The patient is drowsy, but arouses easily to verbal stimuli. He does not appear distressed. HEENT: Normocephalic and atraumatic. Pupils are equal, round, and reactive to light. Moist mucous membranes. NECK: Supple. No appreciable thyromegaly. No appreciable carotid bruits. CARDIOVASCULAR: S1, S2. Regular rate and rhythm. No murmurs, rubs, or gallops. RESPIRATORY: Clear to auscultation bilaterally. No wheezes, rhonchi, or rales. EXTREMITIES: The skin is warm and dry. No clubbing, cyanosis, or edema. The posterior tibial and dorsalis pedis pulses are 1+ and symmetric. SKIN: Ecchymoses over the right forearm. NEUROLOGIC Memory/Attention: The patient is drowsy, but arouses easily to verbal stimuli. He is oriented to person, place, time, and situation. Cranial Nerves: Cranial nerve I--not tested. Cranial nerve II, III, IV, and --Pupils are equal and round, react briskly to light (from 4 mm to 2 mm). Extraocular movements intact. No nystagmus. Cranial nerve V--sensation to light touch and pinprick is intact in the bilateral V1 through V3 distributions. Strength of the temporalis and masseter muscles is within normal limits. Cranial nerve VII--the face is symmetric as are all facial movements. Strength is within normal limits. Cranial nerve VIII--hearing is diminished to finger rub bilaterally. Cranial nerve IX, X--the soft palate elevates equally and symmetrically. Cranial nerve XI--normal strength of the bilateral sternocleidomastoid and trapezius muscles. Cranial nerve XII--the tongue protrudes in midline and moves symmetrically from side to side. Strength: Bulk is normal. Strength is 5/5 in the bilateral deltoids, biceps, triceps, wrist flexors and extensors, finger flexors and extensors, intrinsic hand muscles, hip flexors, knee flexors and extensors, ankle dorsiflexion and plantar flexion, and intrinsic foot muscles. Tone is normal. DTRs: Deep tendon reflexes are 2+ and symmetric at the triceps, biceps, brachioradialis, and patellas. Deep tendon reflexes are absent and symmetric at the Achilles. Plantar responses are flexor on the left, extensor on the right. Sensation: Sensation is intact to light touch and pinprick in both arms and both legs. Cerebellar: Taaxxj-beeb-zwyxmr and heel-gamez movements are intact without dysmetria or other impairment. Gait: Deferred. Speech: Spontaneous speech is normal without appreciable dysarthria or aphasia. Repetition is intact. Involuntary Movements: None. Pronator Drift: None. LABORATORY DATA: A comprehensive metabolic panel is significant for sodium of 135, creatinine of 1.48, estimated GFR 46, glucose of 123, and alkaline phosphatase of 34. Cardiac enzymes are negative times 1. B-type natriuretic peptide 68.4. Serum glucoses have ranged from 111 to 164. The CBC with differential and platelets reveals a white blood cell count of 7.95 with a normal differential. The hemoglobin and hematocrit are 11.9 and 37.7, respectively. The platelet count is 263,000. The coagulation profile is within normal limits. A urinalysis is significant for slightly cloudy urine with moderate mucus. DIAGNOSTIC STUDIES: Electrocardiogram, 04/28/2018: Sinus rhythm at 67 beats per minute. Left axis deviation. CT of the brain without contrast, 04/28/2018: On my review, there is no evidence of recent large territorial ischemia, hemorrhage, mass, or mass effect. Remote lacunar infarcts are seen in the left palms and right cerebellum. Cerebral volumes are appropriate for age. There are findings compatible with moderate to severe chronic small vessel ischemic disease. Chest x-ray, 04/28/2018: No acute radiographic abnormality. Bilateral carotid artery ultrasound with Doppler, 04/28/2018: The left internal carotid artery is tortuous. Flow is antegrade in the bilateral vertebral arteries. MRI of the brain without contrast 04/29/2018: On my review, there is no evidence of recent large territorial ischemia, hemorrhage, mass, or mass effect. Chronic lacunar infarcts are seen in the left paramedian jadiel and right cerebellum. Cerebral volumes are appropriate for age. There are patchy confluent T2/FLAIR hyperintense foci in the supratentorial and infratentorial white matter compatible with severe chronic small vessel ischemic disease. ASSESSMENT AND PLAN: Mr. Cueto is a 78-year-old right hand dominant man with multiple vascular risk factors, admitted to [facility] on April 28, 2018, with a transient ischemic attack. At present, the patient's neurological examination is nonfocal. His laboratory data and other diagnostic studies have been reviewed and are documented above. RECOMMENDATIONS 1. A lipid panel and hemoglobin A1c will be ordered. 2. An echocardiogram will be ordered. 3. Treatment with aspirin 81 mg by mouth daily and Plavix 75 mg by mouth daily for stroke prophylaxis will be continued. However, as the patient did experience a transient ischemic attack while on these medications, treatment with an anticoagulant will be discussed with patient's scalp treatment operator, Dr. Howell. 4. There is no evidence of hemodynamically significant stenosis on bilateral carotid artery ultrasound with Doppler. Therefore, the patient's blood pressure may be normalized. Treatment with the patient's home antihypertensive medications will be resumed. 5. The patient's goal total cholesterol is less than 200 with the LDL of less than 70. Follow up the results of the lipid panel. In the interim, treatment with the patient's home medication of simvastatin 80 mg by mouth at bedtime daily will be continued. 6. The patient's goal hemoglobin A1c is less than 7.0. Follow up the results of the hemoglobin A1c. Continue the patient's home oral hypoglycemic medications. Tight glycemia control is recommended while the patient is in the hospital. 7. Speech and physical therapy consultations will be deferred as there are no deficits on neurological examination. 8. GI prophylaxis with Protonix 40 mg by mouth twice daily. 9. DVT prophylaxis with heparin 5000 units subcutaneously every 12 hours. 10. Defer treatment of the remaining medical comorbidities to the primary and other services following the patient. Thank you for this consultation. I will continue to follow the patient while he remains in the hospital. TIME SPENT: 70 minutes. Job#: [id number] SHAUN [id number]
[2018-04-30] VITALS (8 sets, daily range): BP systolic 152–184; BP diastolic 8–99
[2018-04-30] MEDS: LEVOTHYROXINE SODIUM 100 MCG TAB PO SCH (05:45)
[2018-04-30 06:17] LABS: BASOPHILS # (AUTO) 0.1 (0.0-0.1); BASOPHILS % 0.9 % (0.0-1.0); EOSINOPHILS # (AUTO) 0.4 (0.0-0.4); EOSINOPHILS % 5.7 % (0.0-6.0); HEMATOCRIT 34.1 % (38.2-49.6); HEMOGLOBIN 11.1 g/dL (14.0-18.0); LYMPHOCYTES # (AUTO) 1.5 (1.0-3.2); LYMPHOCYTES % 23.8 % (18.0-39.1); MEAN CORPUSCULAR HEMOGLOBIN 26.9 pg (28-32); MEAN CORPUSCULAR HGB CONC 32.6 g/dL (31-35); MEAN CORPUSCULAR VOLUME 82.6 fL (81-99); MONOCYTES # (AUTO) 0.5 (0.2-0.8); MONOCYTES % 8.2 % (4.4-11.3); NEUTROPHILS % 61.1 % (38.7-80.0); PLATELET COUNT 217 x10e3/uL (140-360); RED BLOOD COUNT 4.13 x10e6/uL (4.3-5.7); RED CELL DISTRIBUTION WIDTH 13.5 % (11.7-14.4)
[2018-04-30 06:33] LABS: ANION GAP 12.8 mmol/L (8-16); BLOOD UREA NITROGEN 13 mg/dL (7-26); BUN/CREATININE RATIO 11 (6-25); CALCIUM 8.7 mg/dL (8.4-10.2); CARBON DIOXIDE 27 mmol/L (22-29); CHLORIDE 96 mmol/L (98-107); CREATININE, SERUM 1.14 mg/dL (0.72-1.25); EST GLOMERULAR FILTRATION RATE > 60 ML/MIN (60-); GLUCOSE 136 mg/dL (74-118); POTASSIUM 3.8 mmol/L (3.5-5.1); SODIUM 132 mmol/L (136-145)
--- NOTE | 2018-04-30 07:04 | NUR ---
RECEIVED PATIENT RESTING IN BED. NO ACUTE DISTRESS NOTED, RESPIRATIONS EVEN AND UNLABORED, NO SOB. CALL LIGHT WITHIN REACH. BED IN THE LOWEST POSITION.
[2018-04-30] MEDS ORDERED: NATEGLINIDE 120 MG TAB PO SCH (07:30)
[2018-04-30] MEDS ORDERED: AMLODIPINE BESYLATE 5 MG TAB PO SCH (09:00)
[2018-04-30] MEDS: PANTOPRAZOLE SOD 40 MG TABEC PO SCH ×2 (09:18→16:51)
[2018-04-30] MEDS: ASPIRIN 81 MG CHEW TAB PO SCH (09:18)
[2018-04-30] MEDS: LACTOBACILLUS ACIDOPHILUS CAPSULE PO SCH (09:18)
[2018-04-30] MEDS: FOLIC ACID/CYANOCOB/PYRIDOXINE TAB PO SCH (09:18)
[2018-04-30] MEDS: QUINAPRIL HCL 20 MG TAB PO SCH ×2 (09:18→16:51)
[2018-04-30] MEDS: TAMSULOSIN HCL 0.4 MG CAP PO SCH (09:18)
[2018-04-30] MEDS: CLOPIDOGREL BISULFATE 75 MG TAB PO SCH (09:18)
[2018-04-30] MEDS: METFORMIN HCL 500 MG TAB PO SCH ×2 (09:18→16:51)
[2018-04-30] MEDS: ATENOLOL 50 MG TAB PO SCH (09:18)
[2018-04-30] MEDS: HEPARIN SOD (PORCINE) 5,000 UNIT/ML VIAL SC SCH (09:20)
[2018-04-30] MEDS ORDERED: AMLODIPINE BESYLATE 5 MG TAB PO ONE (14:45)
[2018-04-30] MEDS ORDERED: AMLODIPINE BESY10 MG PO (15:25)
--- NOTE | 2018-04-30 17:48 | NUR ---
RECEIVED DC ORDER FROM MD, PATIENT IS IN STABLE CONDITION. IV LINE TO RIGHT FOREARM WAS DC'D WITH TIP INTACT, PRESSURE APPLIED TO SITE, NO BLEEDING NOTED. DISCHARGE TEACHING PROVIDED TO PATIENT AND , THEY BOTH VERBALIZED UNDERSTANDING. ALL PERSONAL ITEMS ON HAND. PATIENT ACCOMPANIED TO PRIVATE AUTO VIA WHEELCHAIR BY STAFF.
--- NOTE | 2018-04-30 17:55 | Discharge Summary ---
DISCHARGE DIAGNOSES 1. Transient ischemic attack. 2. Hypertensive urgency. 3. Hyperlipidemia. 4. Coronary artery disease. 5. Diabetes mellitus. DISCHARGE MEDICATIONS: See medication reconciliation form. DISCHARGE ACTIVITY: As tolerated. DISCHARGE DISPOSITION: To home with family. DISCHARGE FOLLOWUP: In 2 weeks. DISCHARGE CONDITION: Stable. HOSPITAL COURSE: Patient presented from outpatient clinic with sudden onset of aphasia. No limb weakness or facial droop. Upon arrival here to the hospital, his symptoms promptly resolved. Imaging of the brain showed no acute intracranial abnormalities. Patient was hypertensive and initially was allowing for permissive hypertension. However, is now being controlled with oral medications. His echocardiogram showed preserved left ventricular systolic function with no septal defect. He was stable at the time of discharge and asymptomatic from a neurologic standpoint. FARHAN CASTILLO D.O. Job#: [id number] SD
[2018-04-30] MEDS ORDERED: ATORVASTATIN 20 MG TAB PO SCH (21:00)
[2018-04-30] MEDS ORDERED: ATORVASTATIN 40 MG TAB PO SCH (21:00)
== END 2018-04-30 17:49 | disposition home or self-care (01) ==
LOC: ER 13:17 → ERHOLD 15:25 → MED/SURG3 16:41
PROVIDERS: ADMIT Internal Medicine Interventional Cardiology; ATTEND Internal Medicine Interventional Cardiology
DX: G45.9 Transient cerebral ischemic attack, unspecified (principal); I25.10 Atherosclerotic heart disease of native coronary artery without angina pectoris; I10 Essential (primary) hypertension; E78.5 Hyperlipidemia, unspecified; E11.9 Type 2 diabetes mellitus without complications; Z87.891 Personal history of nicotine dependence; I16.0 Hypertensive urgency; Z79.4 Long term (current) use of insulin
CPT/HCPCS: 36415 ×3; 70450; 70551; 71045; 80048; 80053; 80061; 81001; 82550; 82553; 82948; 83036; 83735; 83880; 84484; 85025 ×2; 85610; 85730; 93005; 93306; 99284; G0378 ×3; J1644 ×2; J2060; S0164 ×2

== ENCOUNTER 2018-08-30 14:07 | Inpatient (IN) | payer MEDICARE, BC ==
[~2018-08-30] VITALS: Ht 172.7 cm; Wt 77.7 kg
[~2018-08-30 14:07] MED LIST changes: +ACCUPRIL20 MG PO; +ACIDOPHILUS1 EAC4 PO; +AMLODIPINE BESY10 MG PO; +ASPIRIN81 MG PO; +B COMPLEX1 EACH PO; +PLAVIX75 MG PO
--- OUTSIDE RECORDS SUMMARY | 2018-08-30 14:10 | XMS REPORT | Continuity of Care Document ---
Author Author [facility] Interface Address Unknown Phone Unavailable Problems Problem Status Onset Date Classification Date Reported Comments Source Altered mental status, unspecified 01/30/2018 08/15/2018 [facility] AMS Active 01/26/2018 [facility] UNK Active 06/25/2017 [facility] STROKE Active 06/25/2017 [facility] Hemiplegia and hemiparesis following unspecified cerebrovascular disease affecting unspecified side 08/15/2018 [facility] Atherosclerotic heart disease of [place] coronary artery without angina pectoris 08/15/2018 [facility] Essential hypertension 08/15/2018 [facility] Hypothyroidism, unspecified 08/15/2018 [facility] Hyperlipidemia, unspecified 08/15/2018 [facility] Anxiety disorder, unspecified 08/15/2018 [facility] Family history of stroke 08/15/2018 [facility] Personal history of nicotine dependence 08/15/2018 [facility] MCC use of aspirin 08/15/2018 [facility] Personal history of malignant melanoma of skin 08/15/2018 [facility] Other fci drug therapy 08/15/2018 [facility] Acute sinusitis, unspecified Resolved Problem 08/15/2018 [facility] Allergy Resolved Problem 08/15/2018 [facility] Anxiety Active Problem 08/15/2018 [facility] Arthropathy Resolved Problem 08/15/2018 [facility] Bronchitis Resolved Problem 08/15/2018 [facility] CAD (<span ID="[id number]">Confirmed</span>) Active Problem 08/15/2018 [facility] Deviated nasal septum Resolved Problem 08/15/2018 [facility] Diabetes mellitus type 2 Resolved Problem 08/15/2018 [facility] Diaphragmatic hernia Resolved Problem 08/15/2018 [facility] Diarrhea Resolved Problem 08/15/2018 [facility] Bladder disorder, unspecified Resolved Problem 08/15/2018 [facility] Diverticulitis Resolved Problem 08/15/2018 [facility] SOB on exertion(<span ID="[id number]">Confirmed</span>) Active Problem 08/15/2018 [facility] Hemorrhoids, external Resolved Problem 08/15/2018 [facility] Hematuria, gross Resolved Problem 08/15/2018 [facility] GERD (<span ID="[id number]">Confirmed</span>) Resolved Problem 08/15/2018 [facility] History of melanoma Active Problem 08/15/2018 [facility] LOS COYOTES (<span ID="[id number]">Confirmed</span>) Active Problem 08/15/2018 [facility] Hyperlipidemia Active Problem 08/15/2018 [facility] Hypertension Active Problem 08/15/2018 [facility] Hypothyroidism Active Problem 08/15/2018 [facility] Impotence, organic Resolved Problem 08/15/2018 [facility] Polycystic kidney, unspecified Resolved Problem 08/15/2018 [facility] Mumps Resolved Problem 08/15/2018 [facility] Tinnitus Resolved Problem 08/15/2018 [facility] Vertigo Resolved Problem 08/15/2018 [facility] Other forms of angina pectoris 07/13/2017 [facility] OTHER FORMS OF ANGINA PECTORIS Active [facility] ATHSCL HEART DISEASE OF [place] CORONARY Active [facility] CEREBRAL INFARCTION, UNSPECIFIED Active [facility] Medications Medication Details Route Status Patient Instructions Ordering Provider Order Date Source Saline Flush 0.9% 10 mL, Route: IVP, Drug Form: INJ, Dosing Weight 81.818, kg, PRN, PRN Line Flush, Start date: 01/26/18 16:25:00 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, Duration: 30 day, Stop date: 02/25/18 16:24:00 CSTNotes: (Same as: BD Posiflush) No Longer Active 01/26/2018 [facility] Atenolol 50 MG Oral Tablet 50 mg=1 tab, PO, Daily, 0 Refill(s) Active 07/10/2017 [facility] Aspirin 81 MG Enteric Coated Tablet 81 mg=1 tab, PO, Daily, 0 Refill(s) Active 07/10/2017 [facility] Hydralazine 10 mg, 0.5 mL, Route: IV, Drug form: INJ, Q6H, Dosing Weight 77.727, kg, PRN Hypertension, Start date: 07/10/17 9:49:00 CDT, Duration: 30 day, Stop date: 08/09/17 9:48:00 CDTNotes: (Same as: Apresoline) Push over 5 minutes No Longer Active 07/10/2017 [facility] EPINEPHrine-lidocaine 1:200,000-2% preservative-free injectable solution 20 mL, Route: INTRADERM, Drug Form: INJ, Dosing Weight 77.727, kg, ONCE, Start date: 07/09/17 17:28:00 CDT, Stop date: 07/09/17 17:28:00 CDTNotes: (lidocaine-epi 2%-1:261071 20 ml AMP (MPF)) Preservative-free (Same as: Xylocaine-MFP w/Epinephrine) Inactive 07/09/2017 [facility] Labetalol 10 mg, 2 mL, Route: IV, Drug form: INJ, Q4H, Dosing Weight 77.727, kg, PRN Hypertension, Start date: 07/09/17 9:43:00 CDT, Duration: 30 day, Stop date: 08/08/17 9:42:00 CDTNotes: (Same as: NormodyneMyron andate) Push over 2 minutes Give bolus over 2-3 minutes. No Longer Active 07/09/2017 [facility] Ativan 1 mg, 0.5 mL, Route: IVP, Drug form: INJ, ONCE, Dosing Weight 77.727, kg, PRN Anxiety, Start date: 07/09/17 9:16:00 CDTNotes: (Same as: Ativan) Inactive 07/09/2017 [facility] Epinephrine 0.01 MG/ML / Lidocaine Hydrochloride 10 MG/ML Injectable Solution 10 ml, Route: INTRADERM, Drug Form: INJ, Dosing Weight 77.727, kg, ONCE, Start date: 07/08/17 17:31:00 CDT, Stop date: 07/08/17 17:31:00 CDTNotes: (lidocaine-epi 2%-1:759634 20 ml AMP (MPF)) Preservative-free (Same as: Xylocaine-MFP w/Epinephrine) Inactive 07/08/2017 [facility] Rocephin 1 gm, Route: IVP, [id number], Dosing Weight 77.727, kg, Start date: 07/08/17 17:00:00 CDT, Duration: 30 day, Stop date: 08/06/17 17:00:00 CDT, ABX Indication: Fever of Unknown Source 0-60 days of ageNotes: (Same As: Rocephin). Use with 100 mL NS and infuse over 30 min MEDICATION WASTE Product Size: 1000 mg Product Wasted: ___ mg No Longer Active 07/08/2017 [facility] Enoxaparin 40 mg, 0.4 mL, Route: SUB-Q, Drug form: INJ, [id number], Dosing Weight 80.653, kg, Start date: 07/08/17 12:00:00 CDT, Duration: 30 day, Stop date: 08/06/17 12:00:00 CDTNotes: (Same as: Lovenox) No Longer Active 07/08/2017 [facility] Diazepam 10 mg, Route: PO, Drug form: TAB, TID, Dosing Weight 80.653, kg, Start date: 07/08/17 9:00:00 CDT, Duration: 30 day, Stop date: 08/06/17 17:00:00 CDT No Longer Active 07/08/2017 [facility] Chlorzoxazone 500 mg, Route: PO, Drug form: TAB, TID, Dosing Weight 80.653, kg, Start date: 07/08/17 9:00:00 CDT, Duration: 30 day, Stop date: 08/06/17 17:00:00 CDT No Longer Active 07/08/2017 [facility] Magnesium Chloride 535 MG Enteric Coated Tablet 2 tab, Route: PO, Drug Form: ECTAB, Dosing Weight 80.653, kg, Daily, Start date: 07/08/17 9:00:00 CDT, Duration: 30 day, Stop date: 08/06/17 9:00:00 CDT No Longer Active 07/08/2017 [facility] lactobacillus acidophilus 1 tab, Route: PO, Drug Form: TAB, Dosing Weight 80.653, kg, Daily, Start date: 07/08/17 9:00:00 CDT, Duration: 30 day, Stop date: 08/06/17 9:00:00 CDT No Longer Active 07/08/2017 [facility] Azelastine hydrochloride 0.137 MG/ACTUAT Metered Dose Nasal [place] 2 inhalation, Route: NASAL, Drug Form: SPRY, Dosing Weight 80.653, kg, BID, Start date: 07/08/17 9:00:00 CDT, Duration: 30 day, Stop date: 08/06/17 17:00:00 CDTNotes: (azelastine 137 microgram/inh 34 ml nasal SPR) Non-formulary drug. Same As: Astelin) No Longer Active 07/08/2017 [facility] Atenolol 50 MG Oral Tablet 50 mg, 1 tab, Route: PO, Drug form: TAB, Daily, Dosing Weight 80.653, kg, Start date: 07/08/17 9:00:00 CDT, Duration: 30 day, Stop date: 08/06/17 9:00:00 CDTNotes: (Same As:Tenormin) No Longer Active 07/08/2017 [facility] tamsulosin 0.4 mg, 1 cap, Route: PO, Drug form: CAP, Daily, Dosing Weight 80.653, kg, Start date: 07/08/17 9:00:00 CDT, Duration: 30 day, Stop date: 08/06/17 9:00:00 CDTNotes: (Same As: Flomax) "Do Not Crush" No Longer Active 07/08/2017 [facility] Saline Flush 0.9% 10 ml, Route: IVP, Drug Form: INJ, Dosing Weight 80.653, kg, Q12H, Start date: 07/08/17 9:00:00 CDT, Duration: 30 day, Stop date: 08/06/17 21:00:00 CDTNotes: Same as: BD Posiflush Sterile No Longer Active 07/08/2017 [facility] quinapril 40 mg, Route: PO, Drug form: TAB, Daily, Dosing Weight 80.653, kg, Start date: 07/08/17 9:00:00 CDT, Duration: 30 day, Stop date: 08/06/17 9:00:00 CDT No Longer Active 07/08/2017 [facility] Aspirin 81 mg, 1 tab, Route: PO, Drug form: ECTAB, Daily, Dosing Weight 80.653, kg, Start date: 07/08/17 9:00:00 CDT, Duration: 30 day, Stop date: 08/06/17 9:00:00 CDTNotes: Do not crush or chew. (Same As: Ecotrin) No Longer Active 07/08/2017 [facility] Floranex 1 tab, Route: PO, Drug Form: TAB, Daily, Start date: 07/08/17 9:00:00 CDT, Duration: 30 day, Stop date: 08/06/17 9:00:00 CDTNotes: (Same as Floranex) Do NOT refrigerate No Longer Active 07/08/2017 [facility] Altace 10 mg, 2 cap, Route: PO, Drug form: CAP, Daily, Start date: 07/08/17 9:00:00 CDT, Duration: 30 day, Stop date: 08/06/17 9:00:00 CDTNotes: (Same as:Altace) No Longer Active 07/08/2017 [facility] clopidogrel 75 mg, 1 tab, Route: PO, Drug form: TAB, Daily, Dosing Weight 80.653, kg, Start date: 07/08/17 9:00:00 CDT, Duration: 30 day, Stop date: 08/06/17 9:00:00 CDTNotes: (Same As: Plavix) No Longer Active 07/08/2017 [facility] Saline Flush 0.9% 10 ml, Route: IVP, Drug Form: INJ, Dosing Weight 80.653, kg, PRN, PRN Line Flush, Start date: 07/08/17 8:02:00 CDT, Duration: 30 day, Stop date: 08/07/17 8:01:00 CDTNotes: Same as: BD Posiflush Sterile No Longer Active 07/08/2017 [facility] pantoprazole 40 mg, 1 tab, Route: PO, Drug form: ECTAB, Before Breakfast, Dosing Weight 80.653, kg, Start date: 07/08/17 7:30:00 CDT, Duration: 30 day, Stop date: 08/06/17 7:30:00 CDTNotes: Tablet should not be c hewed or crushed. (Same as: Protonix) No Longer Active 07/08/2017 [facility] Thyroxine 100 microgram, 1 tab, Route: PO, Drug form: TAB, Q630AM, Dosing Weight 80.653, kg, Start date: 07/08/17 6:30:00 CDT, Duration: 30 day, Stop date: 08/06/17 6:30:00 CDTNotes: Take 1 hour before or 2 hours after meal; Enteral feeds may interefere with the absorption of this medication. (Same as:Levothroid, Synthroid) No Longer Active 07/08/2017 [facility] Carbinoxamine maleate 4 MG Oral Tablet 4 mg, 1 tab, Route: PO, Drug form: TAB, Q6H, Dosing Weight 80.653, kg, Start date: 07/08/17 0:00:00 CDT, Duration: 30 day, Stop date: 08/06/17 18:00:00 CDT No Longer Active 07/08/2017 [facility] *Please bring pt own carbinoxamine, chlorzoxazone, mgcl *Please bring pt own carbinoxamine, chlorzoxazone, mgcl, ATTN:RN, Drug form: MISC, Route: MISC, QSHIFT, 07/08/17 0:00:00 CDT, Duration: 30 day, Stop date: 08/06/17 16:00:00 CDT No Longer Active 07/08/2017 [facility] Zofran 4 mg, 2 mL, Route: IV, Drug form: INJ, Q4H, Dosing Weight 80.653, kg, PRN Nausea, Start date: 07/07/17 22:17:00 CDT, Duration: 30 day, Stop date: 08/06/17 22:16:00 CDTNotes: (Same as: Zofran) MEDICATION WASTE Product Size: 4 mg Product Wasted: ___ mg No Longer Active 07/08/2017 [facility] Acetaminophen 650 mg, 2 tab, Route: PO, Drug form: TAB, Q6H, Dosing Weight 80.653, kg, PRN For Temp > 100.4 F, Start date: 07/07/17 22:17:00 CDT, Duration: 30 day, Stop date: 08/06/17 22:16:00 CDTNotes: Do not exceed 4 gm/day. (Same as: Tylenol) No Longer Active 07/08/2017 [facility] Simvastatin 80 mg, 2 tab, Route: PO, Drug form: TAB, Bedtime, Dosing Weight 80.653, kg, Start date: 07/07/17 21:00:00 CDT, Duration: 30 day, Stop date: 08/05/17 21:00:00 CDTNotes: (Same as: Zocor) No Longer Active 07/08/2017 [facility] Diazepam 10 mg, 2 tab, Route: PO, Drug form: TAB, TID, Dosing Weight 80.653, kg, PRN Anxiety, Start date: 07/07/17 20:11:00 CDT, Duration: 30 day, Stop date: 08/06/17 20:10:00 CDTNotes: (Same as: Valium) Inactive 07/08/2017 [facility] Morphine 12 mg, 6 mL, Route: PO, Drug form: SOLN, Q4H, Dosing Weight 80.653, kg, PRN Pain Score 7-10, Start date: 07/07/17 18:24:00 CDT, Duration: 30 day, Stop date: 08/06/17 18:23:00 CDTNotes: (Same as:MORPhine Sulfate) No Longer Active 07/07/2017 [facility] Acetaminophen 325 MG / Hydrocodone Bitartrate 5 MG Oral Tablet 2 tab, Route: PO, Drug Form: TAB, Dosing Weight 80.653, kg, Q4H, PRN Pain Score 7-10, Start date: 07/07/17 18:24:00 CDT, Duration: 30 day, Stop date: 08/06/17 18:23:00 CDTNotes: (Same as: [place] 325/5) Do not exceed 4gm/day of acetaminophen. No Longer Active 07/07/2017 [facility] Nitroglycerin 0.4 mg, 1 tab, Route: SL, Drug form: TAB, Q5Min, Dosing Weight 80.653, kg, PRN Chest Pain, Start date: 07/07/17 18:24:00 CDT, Duration: 3 doses or times, Stop date: Limited # of timesNotes: (Same as: Nitroquick, Nitrostat) "Do Not Crush" Sublingual tablet No Longer Active 07/07/2017 [facility] Sodium Chloride 0.9% IV 1,000 mL 1,000 mL, Rate: 75 ml/hr, Infuse over: 13.3 hr, Route: IV, Dosing Weight 80.653 kg, Total Volume: 1,000, Start date: 07/07/17 18:24:00 CDT, Duration: 10 hr, Stop date: 07/08/17 4:23:00 CDT, 1.98, m2 No Longer Active 07/07/2017 [facility] nateglinide 120 MG Oral Tablet [Starlix] 120 mg=1 tab, PO, PRN, 0 Refill(s) Active 07/07/2017 [facility] normal saline 0.9% IV 1,000 mL 1,000 mL, Rate: 100 ml/hr, Infuse over: 10 hr, Route: IV, Dosing Weight 80.653 kg, Total Volume: 1,000, Start date: 07/07/17 14:51:00 CDT, Duration: 30 day, Stop date: 08/06/17 14:50:00 CDT, 1.98, m2 Inactive 07/07/2017 [facility] Benadryl 50 mg, Route: IVP, ONCE, Dosing Weight 80.653, kg, Start date: 07/07/17 14:51:00 CDT, Stop date: 07/07/17 14:51:00 CDT Inactive 07/07/2017 [facility] Magnesium Chloride 535 MG Enteric Coated Tablet 2 tab, PO, Daily, 0 Refill(s) Active 07/03/2017 [facility] Aspirin 0 Refill(s) No Longer Active 07/03/2017 [facility] Probiotic Formula 1 cap, PO, Daily, 0 Refill(s) Active 07/03/2017 [facility] Vitamin D3 0 Refill(s) Active 07/03/2017 [facility] B Complex 100 0 Refill(s) Active 07/03/2017 [facility] clopidogrel 75 mg oral tablet 75 mg=1 tab, PO, Daily, # 30 tab, 0 Refill(s) Active 07/03/2017 [facility] Carbinoxamine maleate 4 MG Oral Tablet 4 mg=1 tab, PO, Q6H, 0 Refill(s) Active 07/03/2017 [facility] Mometasone TOP, Daily, 0 Refill(s) Active 07/03/2017 [facility] Azelastine hydrochloride 0.137 MG/ACTUAT Metered Dose Nasal [place] 2 spray, NASAL, BID, 0 Refill(s) Active 07/03/2017 [facility] tamsulosin 0.4 mg oral capsule 0.4 mg=1 cap, PO, Daily, # 30 cap, 0 Refill(s) Active 07/03/2017 [facility] Atenolol 50 MG Oral Tablet 50 mg=1 tab, PO, Daily, # 30 tab, 0 Refill(s) No Longer Active 07/03/2017 [facility] chlorzoxazone 500 mg oral tablet 500 mg=1 tab, PO, TID, 0 Refill(s) Active 07/03/2017 [facility] pantoprazole 40 mg oral enteric coated tablet 40 mg=1 tab, PO, Daily, 0 Refill(s) Active 07/03/2017 [facility] levothyroxine 100 mcg (0.1 mg) oral tablet 100 microgram=1 tab, PO, Daily, # 30 tab, 0 Refill(s) Active 07/03/2017 [facility] Metformin PO, 0 Refill(s) No Longer Active 07/03/2017 [facility] diazepam 10 mg oral tablet 10 mg=1 tab, PO, TID, 0 Refill(s) No Longer Active 07/03/2017 [facility] diazepam 10 mg rectal kit TN, ONCE, 0 Refill(s) Inactive 07/03/2017 [facility] quinapril 40 mg oral tablet 40 mg=1 tab, PO, Daily, 0 Refill(s) Active 07/03/2017 [facility] simvastatin 80 mg oral tablet 80 mg=1 tab, PO, Bedtime, # 30 tab, 0 Refill(s) Active 07/03/2017 [facility] Allergies, Adverse Reactions, Alerts Substance Category Reaction Severity Reaction type Status Date Reported Comments Source tetanus toxoid Assertion Drug allergy Active [facility] Immunizations Immunization Date Given Site Status Last Updated Comments Source Results Order Name Results Value Reference Range Date Interpretation Comments Source CARDIAC ENZYMES Total CK 51 unit/L 12 - 191 01/27/2018 [facility] CARDIAC ENZYMES Troponin-I null 0.00 - 0.40 01/27/2018 [facility] CHEM PANEL eGFR 49 mL/min/1.73m2 01/27/2018 Result Comment: The eGFR is calculated using [...] should be multiplied by the estimated BMI. [facility] CHEM PANEL Bili Total 0.4 mg/dL 0.2 - 1.3 01/27/2018 [facility] CHEM PANEL AST 11 unit/L 0 - 37 01/27/2018 [facility] CHEM PANEL Alk Phos 38 unit/L 39 - 136 01/27/2018 [facility] CHEM PANEL Glucose Lvl 112 mg/dL 70 - 99 01/27/2018 [facility] CHEM PANEL Sodium Lvl 132 meq/L 135 - 145 01/27/2018 [facility] CHEM PANEL BUN 17 mg/dL 7 - 22 01/27/2018 [facility] CHEM PANEL Creatinine Lvl 1.36 mg/dL 0.50 - 1.40 01/27/2018 [facility] CHEM PANEL CO2 30 meq/L 24 - 32 01/27/2018 [facility] CHEM PANEL Calcium Lvl 8.9 mg/dL 8.5 - 10.5 01/27/2018 [facility] CHEM PANEL Potassium Lvl 4.8 meq/L 3.5 - 5.1 01/27/2018 [facility] CHEM PANEL Chloride Lvl 95 meq/L 95 - 109 01/27/2018 [facility] CHEM PANEL Total Protein 7.5 g/dL 6.4 - 8.4 01/27/2018 [facility] CHEM PANEL Albumin Lvl 3.8 g/dL 3.5 - 5.0 01/27/2018 [facility] CHEM PANEL ALT 22 unit/L 0 - 65 01/27/2018 [facility] CHEM PANEL A/G Ratio 1.0 0.7 - 1.6 01/27/2018 [facility] CHEM PANEL Globulin 3.7 g/dL 2.7 - 4.2 01/27/2018 [facility] CHEM PANEL B/C Ratio 12 6 - 25 01/27/2018 [facility] CHEM PANEL AGAP 11.8 meq/L 10.0 - 20.0 01/27/2018 [facility] HEMATOLOGY Eosinophils # 0.3 K/CMM 0.0 - 0.5 01/27/2018 [facility] HEMATOLOGY Basophils # 0.1 K/CMM 0.0 - 0.2 01/27/2018 [facility] HEMATOLOGY Monocytes # 0.9 K/CMM 0.0 - 0.8 01/27/2018 [facility] HEMATOLOGY Lymphocytes # 2.1 K/CMM 1.0 - 5.5 01/27/2018 [facility] HEMATOLOGY Basophils 0.9 % 0.0 - 1.0 01/27/2018 [facility] Neutrophils # 7.5 K/CMM 1.5 - 8.1 01/27/2018 [facility] Monocytes 8.4 % 2.0 - 12.0 01/27/2018 [facility] Lymphocytes 19.3 % 20.0 - 40.0 01/27/2018 [facility] Eosinophils 3.0 % 0.0 - 4.0 01/27/2018 [facility] Segs 68.4 % 45.0 - 75.0 01/27/2018 [facility] Hct 39.5 % 36.0 - 48.0 01/27/2018 Result Comment: Reference range changed due to change in patient's sex at 12:06:52. Normal Low changed from 42.0 to 36.0. Normal High changed from 54.0 to 48.0. Result flag changed from L to within range. [facility] Hgb 13.3 g/dL 12.0 - 16.0 01/27/2018 Result Comment: Reference range changed due to change in patient's sex at 12:06:52. Normal Low changed from 14.0 to 12.0. Normal High changed from 18.0 to 16.0. Result flag changed from L to within range. [facility] WBC 11.0 K/CMM 3.7 - 10.4 01/27/2018 [facility] MCH 28.5 pg 27.0 - 31.0 01/27/2018 [facility] RBC 4.68 M/CMM 4.20 - 5.40 01/27/2018 Result Comment: Reference range changed due to change in patient's sex at 12:06:52. Normal Low changed from 4.70 to 4.20. Normal High changed from 6.10 to 5.40. Result flag changed from L to within range. [facility] MCHC 33.7 g/dL 32.0 - 36.0 01/27/2018 [facility] MCV 84.4 fL 80.0 - 98.0 01/27/2018 Result Comment: Reference range changed due to change in patient's sex at 12:06:52. Normal High changed from 94.0 to 98.0. Result flag not changed. [facility] RDW 14.7 % 11.5 - 14.5 01/27/2018 [facility] HEMATOLOGY Platelet 264 K/CMM 133 - 450 01/27/2018 [facility] HEMATOLOGY MPV 9.3 fL 7.4 - 10.4 01/27/2018 [facility] Chest 1view DX Chest 1view DX CHEST 1 VIEW INDICATION: Chest pain. Altered mental status COMPARISON: 07/08/2017 chest x-ray FINDINGS: The lungs are clear. The pleura, cardiomediastinal silhouette and bony thorax are normal. IMPRESSION: Negative. END IMPRESSION SL: [id number] 01/26/2018 - - Read by: Brigido River MD Dictated Date/time: 01/26/18 17:03 Electronically Signed by: Brigido River MD 01/26/18 17:03 FINAL REPORT [facility] Brain wo contrast CT Brain wo [...] Mauricio Jeronimo MD 01/26/18 17:24 FINAL REPORT [facility] CHEM PANEL eGFR 67 mL/min/1.73m2 07/10/2017 [...] should be multiplied by the estimated BMI. [facility] CHEM PANEL BUN 12 mg/dL 7 - 22 07/10/2017 [facility] CHEM PANEL Creatinine Lvl 1.06 mg/dL 0.50 - 1.40 07/10/2017 [facility] CHEM PANEL Chloride Lvl 97 meq/L 95 - 109 07/10/2017 [facility] CHEM PANEL CO2 28 meq/L 24 - 32 07/10/2017 [facility] CHEM PANEL Calcium Lvl 8.2 mg/dL 8.5 - 10.5 07/10/2017 [facility] CHEM PANEL Sodium Lvl 132 meq/L 135 - 145 07/10/2017 [facility] CHEM PANEL Potassium Lvl 3.9 meq/L 3.5 - 5.1 07/10/2017 [facility] CHEM PANEL Glucose Lvl 181 mg/dL 70 - 99 07/10/2017 [facility] CHEM PANEL AGAP 10.9 meq/L 10.0 - 20.0 07/10/2017 [facility] HEMATOLOGY Segs 73.1 % 45.0 - 75.0 07/10/2017 [facility] HEMATOLOGY Basophils # 0.1 K/CMM 0.0 - 0.2 07/10/2017 [facility] Eosinophils # 0.2 K/CMM 0.0 - 0.5 07/10/2017 [facility] Lymphocytes # 1.6 K/CMM 1.0 - 5.5 07/10/2017 [facility] Monocytes # 0.7 K/CMM 0.0 - 0.8 07/10/2017 [facility] Segs-Bands # 7.2 K/CMM 1.5 - 8.1 07/10/2017 [facility] Basophils 0.6 % 0.0 - 1.0 07/10/2017 [facility] Eosinophils 2.4 % 0.0 - 4.0 07/10/2017 [facility] Lymphocytes 16.4 % 20.0 - 40.0 07/10/2017 [facility] Monocytes 7.5 % 2.0 - 12.0 07/10/2017 [facility] WBC 9.8 K/CMM 3.7 - 10.4 07/10/2017 [facility] RBC 3.73 M/CMM 4.70 - 6.10 07/10/2017 [facility] Hgb 11.4 g/dL 14.0 - 18.0 07/10/2017 [facility] MCV 89.4 fL 80.0 - 94.0 07/10/2017 [facility] MCH 30.6 pg 27.0 - 31.0 07/10/2017 [facility] Hct 33.4 % 42.0 - 54.0 07/10/2017 [facility] MPV 9.7 fL 7.4 - 10.4 07/10/2017 [facility] Platelet 217 K/CMM 133 - 450 07/10/2017 [facility] MCHC 34.2 g/dL 32.0 - 36.0 07/10/2017 [facility] RDW 13.0 % 11.5 - 14.5 07/10/2017 [facility] CHEM PANEL eGFR 53 mL/min/1.73m2 07/09/2017 [...] should be multiplied by the estimated BMI. [facility] CHEM PANEL CO2 28 meq/L 24 - 32 07/09/2017 [facility] CHEM PANEL Chloride Lvl 98 meq/L 95 - 109 07/09/2017 [facility] CHEM PANEL Sodium Lvl 135 meq/L 135 - 145 07/09/2017 [facility] CHEM PANEL Creatinine Lvl 1.28 mg/dL 0.50 - 1.40 07/09/2017 [facility] CHEM PANEL Potassium Lvl 3.9 meq/L 3.5 - 5.1 07/09/2017 [facility] CHEM PANEL Glucose Lvl 242 mg/dL 70 - 99 07/09/2017 [facility] CHEM PANEL BUN 10 mg/dL 7 - 22 07/09/2017 [facility] CHEM PANEL Calcium Lvl 8.2 mg/dL 8.5 - 10.5 07/09/2017 [facility] CHEM PANEL AGAP 12.9 meq/L 10.0 - 20.0 07/09/2017 [facility] MPV 9.7 fL 7.4 - 10.4 07/09/2017 [facility] Hct 36.8 % 42.0 - 54.0 07/09/2017 [facility] MCV 90.5 fL 80.0 - 94.0 07/09/2017 [facility] [facility] MCH 30.9 pg 27.0 - 31.0 07/09/2017 [facility] MCHC 34.2 g/dL 32.0 - 36.0 07/09/2017 [facility] Platelet 215 K/CMM 133 - 450 07/09/2017 [facility] RDW 13.1 % 11.5 - 14.5 07/09/2017 [facility] WBC 10.4 K/CMM 3.7 - 10.4 07/09/2017 [facility] RBC 4.07 M/CMM 4.70 - 6.10 07/09/2017 [facility] Hgb 12.6 g/dL 14.0 - 18.0 07/09/2017 [facility] Lymphocytes 16.4 % 20.0 - 40.0 07/09/2017 [facility] Monocytes 7.9 % 2.0 - 12.0 07/09/2017 [facility] Basophils 0.6 % 0.0 - 1.0 07/09/2017 [facility] Lymphocytes # 1.7 K/CMM 1.0 - 5.5 07/09/2017 [facility] Segs-Bands # 7.7 K/CMM 1.5 - 8.1 07/09/2017 [facility] Eosinophils # 0.2 K/CMM 0.0 - 0.5 07/09/2017 [facility] Monocytes # 0.8 K/CMM 0.0 - 0.8 07/09/2017 [facility] Basophils # 0.1 K/CMM 0.0 - 0.2 07/09/2017 [facility] Eosinophils 1.6 % 0.0 - 4.0 07/09/2017 [facility] Segs 73.5 % 45.0 - 75.0 07/09/2017 [facility] Brain wo contrast MRI Brain wo [...] chronic microvascular ischemic changes and mild atrophy. : [id number] 07/09/2017 - - Read by: Eleazar Marks MD Dictated Date/time: 07/09/17 12:16 Electronically Signed by: Eleazar Marks MD 07/09/17 12:24 FINAL REPORT [facility] URINE AND STOOL UA Nitrite Negative (07/08/17 9:19 PM) Negative 07/09/2017 [facility] URINE AND STOOL UA Blood Large *ABN* (07/08/17 9:19 PM) Negative 07/09/2017 [facility] URINE AND STOOL UA Bili Negative *NA* (07/08/17 9:19 PM) Negative 07/09/2017 [facility] URINE AND STOOL UA Color Red 07/09/2017 [facility] URINE AND STOOL UA Urobilinogen <=1.0 mg/dL 0.1 - 1.0 07/09/2017 [facility] URINE AND STOOL UA Bacteria Few /HPF None Seen /HPF 07/09/2017 [facility] URINE AND STOOL UA [facility] Yeast Occasional /HPF None Seen /HPF 07/09/2017 [facility] URINE AND STOOL UA WBC null 0 - 5 07/09/2017 [facility] URINE AND STOOL UA RBC null 0 - 2 07/09/2017 [facility] URINE AND STOOL UA Leuk Est Negative (07/08/17 9:19 PM) Negative 07/09/2017 [facility] URINE AND STOOL UA Sq Epi None Seen 07/09/2017 [facility] URINE AND STOOL UA pH 6.0 5.0 - 8.0 07/09/2017 [facility] URINE AND STOOL UA Protein 100 mg/dL Negative mg/dL 07/09/2017 [facility] URINE AND STOOL UA Glucose 150 mg/dL Negative mg/dL 07/09/2017 [facility] URINE AND STOOL UA Ketones Trace mg/dL Negative mg/dL 07/09/2017 [facility] URINE AND STOOL UA Spec Grav 1.021 <=1.030 07/09/2017 [facility] URINE AND STOOL UA Turbidity Slight *ABN* (07/08/17 9:19 PM) Clear 07/09/2017 [facility] Chest 1view DX Chest 1view DX Portable chest: The cardiomediastinal silhouette and pulmonary vasculature are within normal limits. The lungs and pleural spaces are clear. There are no acute osseous abnormalities. IMPRESSION: No acute radiographic abnormality in the chest. [id number] 07/08/2017 - - Read by: Waylon Taylor MD Dictated Date/time: 07/08/17 16:40 Electronically Signed by: Waylon Taylor MD 07/08/17 16:40 FINAL REPORT [facility] Carotid artery Doppler bilat US Carotid [...] IMPRESSION: No evidence of significant carotid stenosis. [id number] 07/08/2017 - - Read by: Waylon Taylor MD Dictated Date/time: 07/08/17 09:48 Electronically Signed by: Waylon Taylor MD 07/08/17 09:50 FINAL REPORT [facility] ELECTROLYTES Sodium Lvl 134 meq/L 135 - 145 07/08/2017 [facility] Creatinine Lvl 1.14 mg/dL 0.50 - 1.40 07/08/2017 [facility] ELECTROLYTES BUN 15 mg/dL 7 - 22 07/08/2017 [facility] ELECTROLYTES Glucose Lvl 163 mg/dL 70 - 99 07/08/2017 [facility] ELECTROLYTES Potassium Lvl 3.8 meq/L 3.5 - 5.1 07/08/2017 [facility] ELECTROLYTES eGFR 61 mL/min/1.73m2 07/08/2017 Result [...] should be multiplied by the estimated BMI. [facility] ELECTROLYTES Globulin 3.3 g/dL 2.7 - 4.2 07/08/2017 [facility] ELECTROLYTES B/C Ratio 13 6 - 25 07/08/2017 [facility] ELECTROLYTES A/G Ratio 1.0 0.7 - 1.6 07/08/2017 [facility] ELECTROLYTES Calcium Lvl 8.3 mg/dL 8.5 - 10.5 07/08/2017 [facility] ELECTROLYTES Albumin Lvl 3.4 g/dL 3.5 - 5.0 07/08/2017 [facility] ELECTROLYTES Total Protein 6.7 g/dL 6.4 - 8.4 07/08/2017 [facility] ELECTROLYTES CO2 25 meq/L 24 - 32 07/08/2017 [facility] ELECTROLYTES Chloride Lvl 99 meq/L 95 - 109 07/08/2017 [facility] ELECTROLYTES ALT 21 unit/L 0 - 65 07/08/2017 [facility] ELECTROLYTES Alk Phos 34 unit/L 39 - 136 07/08/2017 [facility] ELECTROLYTES AST 10 unit/L 0 - 37 07/08/2017 [facility] ELECTROLYTES AGAP 13.8 meq/L 10.0 - 20.0 07/08/2017 [facility] ELECTROLYTES Bili Total 0.7 mg/dL 0.2 - 1.3 07/08/2017 [facility] HEMATOLOGY Lymphocytes # 0.9 K/CMM 1.0 - 5.5 07/08/2017 [facility] HEMATOLOGY Monocytes # 0.6 K/CMM 0.0 - 0.8 07/08/2017 [facility] HEMATOLOGY Segs 90.2 % 45.0 - 75.0 07/08/2017 [facility] HEMATOLOGY Lymphocytes 5.7 % 20.0 - 40.0 07/08/2017 [facility] HEMATOLOGY Eosinophils 0.1 % 0.0 - 4.0 07/08/2017 [facility] HEMATOLOGY Basophils 0.3 % 0.0 - 1.0 07/08/2017 [facility] HEMATOLOGY Monocytes 3.7 % 2.0 - 12.0 07/08/2017 [facility] Segs-Bands # 15.1 K/CMM 1.5 - 8.1 07/08/2017 [facility] PT 13.7 s 12.0 - 14.7 07/08/2017 [facility] INR 1.05 0.85 - 1.17 07/08/2017 [facility] PTT 31.0 s 22.9 - 35.8 07/08/2017 [facility] RDW 12.9 % 11.5 - 14.5 07/08/2017 [facility] Platelet 244 K/CMM 133 - 450 07/08/2017 [facility] MCHC 33.5 g/dL 32.0 - 36.0 07/08/2017 [facility] MCH 30.2 pg 27.0 - 31.0 07/08/2017 [facility] MPV 9.5 fL 7.4 - 10.4 07/08/2017 [facility] MCV 90.0 fL 80.0 - 94.0 07/08/2017 [facility] Hct 42.3 % 42.0 - 54.0 07/08/2017 [facility] Hgb 14.2 g/dL 14.0 - 18.0 07/08/2017 [facility] WBC 16.7 K/CMM 3.7 - 10.4 07/08/2017 [facility] RBC 4.70 M/CMM 4.70 - 6.10 07/08/2017 [facility] LIPIDS VLDL 11 07/08/2017 [facility] LIPIDS LDL (Calculated) 39 mg/dL <=99 mg/dL 07/08/2017 [facility] LIPIDS HDL 59 mg/dL >=61 mg/dL 07/08/2017 [facility] LIPIDS Trig 56 mg/dL <=149 mg/dL 07/08/2017 [facility] LIPIDS Chol 109 mg/dL <=199 mg/dL 07/08/2017 [facility] LIPIDS CHD Risk 1.85 4.00 - 7.30 07/08/2017 [facility] SPECIAL CHEMISTRY Hgb A1C 6.6 % <=5.6 % 07/08/2017 [facility] Brain wo contrast CT Brain wo contrast CT Images and report reviewed, concur. Clinical Indication: Aphasia - PMH CVA, POST OP EXPRESSIVE APHASIA NEW. Severe confusion. Comparison: None. TECHNIQUE: Sequential trans-axial images were obtained through the head without the administration of IV iodinated contrast. Coronal and sagittal reconstructions were obtained. Dose: ZFY=[id number] mGy-cm Findings: Supratentorial brain: There is moderate [...] could be performed for further evaluation. SL: TRAVIS 07/07/2017 - - Read by: Shweta Colvin MD Dictated Date/time: 07/07/17 23:21 Electronically Signed by: Shweta Colvin MD 07/07/17 23:31 FINAL REPORT - - Read by: Moe Lopez MD Dictated Date/time: 07/07/17 23:12 Electronically Signed by: Moe Lopez MD 07/07/17 23:19 FINAL REPORT [facility] HEMATOLOGY Eosinophils # 0.2 K/CMM 0.0 - 0.5 07/03/2017 [facility] HEMATOLOGY Basophils # 0.1 K/CMM 0.0 - 0.2 07/03/2017 [facility] HEMATOLOGY INR 1.00 0.85 - 1.17 07/03/2017 [facility] HEMATOLOGY PT 13.2 s 12.0 - 14.7 07/03/2017 [facility] HEMATOLOGY PTT 33.9 s 22.9 - 35.8 07/03/2017 [facility] LIPIDS CHD Risk 2.03 4.00 - 7.30 07/03/2017 [facility] LIPIDS VLDL 17 07/03/2017 [facility] LIPIDS LDL (Calculated) 43 mg/dL <=99 mg/dL 07/03/2017 [facility] LIPIDS Trig 87 mg/dL <=149 mg/dL 07/03/2017 [facility] LIPIDS HDL 58 mg/dL >=61 mg/dL 07/03/2017 [facility] LIPIDS Chol 118 mg/dL <=199 mg/dL 07/03/2017 [facility] Vital Signs Vital Sign Value Date Comments Source Temperature Oral (F) 98.2 F 01/26/2018 [facility] Height 172.72 cm 01/26/2018 [facility] BMI Calculated 27.43 01/26/2018 [facility] Weight 81.818 01/26/2018 [facility] Systolic (mm Hg) 165 01/26/2018 [facility] Diastolic (mm Hg) 82 01/26/2018 [facility] Respitory Rate 18 01/26/2018 [facility] Heart Rate 63 01/26/2018 [facility] Heart Rate 69 07/10/2017 [facility] Systolic (mm Hg) 178 07/10/2017 [facility] Diastolic (mm Hg) 62 07/10/2017 [facility] Temperature Oral (F) 98 F 07/10/2017 [facility] Heart Rate 62 07/10/2017 [facility] Systolic (mm Hg) 135 07/10/2017 [facility] Diastolic (mm Hg) 72 07/10/2017 [facility] Temperature Oral (F) 98 F 07/10/2017 [facility] Heart Rate 70 07/10/2017 [facility] Systolic (mm Hg) 181 07/10/2017 [facility] Diastolic (mm Hg) 92 07/10/2017 [facility] Temperature Oral (F) 97.8 F 07/10/2017 [facility] Respitory Rate 18 07/10/2017 [facility] Respitory Rate 18 07/10/2017 [facility] Respitory Rate 18 07/10/2017 [facility] BMI Calculated 26.05 07/08/2017 [facility] Weight 77.727 07/08/2017 [facility] Height 172.72 cm 07/08/2017 [facility] Weight 80.653 07/03/2017 [facility] BMI Calculated 27.04 07/03/2017 [facility] Height 172.72 cm 07/03/2017 [facility] Encounters Location Location Details Encounter Type Encounter Number Reason For Visit Attending Provider ADM Date DC Date Status Source [facility] Inpatient [id number] Varun Jenkinsa 07/08/2017 07/10/2017 [facility] Emergency [id number] Elvis Dulce Maria 01/26/2018 01/27/2018 [facility] Procedures Procedure Code Date Perfomer Comments Source Appendectomy [id number] [facility] Cholecystectomy [id number] [facility] Colonoscopy [id number] [facility] Esophagogastroduodenoscopy [id number] [facility] Repair of diaphragmatic hiatal hernia [id number] [facility]
--- OUTSIDE RECORDS SUMMARY | 2018-08-30 14:10 | XMS REPORT | Summary of Care ---
Author Author [facility] Organization [facility] Address Unknown Phone Unavailable Encounter HEIDY Saucedo(HERMILA) [id number] Date(s): 01/26/18 - 01/26/[address] 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 affecti ng unspecified side (Final) - Atherosclerotic heart disease of [place] coronary artery without angina pectoris (Final) - Essential (primary) hypertension (Final) - Hypothyroidism, unspecified (Final) - Hyperlipidemia, unspecified (Final) - Anxiety disorder, unspecified (Final) - Family history of stroke (Final) - Personal history of nicotine dependence (Final) - supervisor intermediates (current) use of aspirin (Final) - Personal history of malignant melanoma of skin (Final) - Other correction (current) drug therapy (Final) - Discharge Disposition: Left Against Medical Advise Attending Physician: Elvis العراقي MD Vital Signs Most recent to 1 oldest [Reference Range]: Height 172.72 cm (01/26/18 4:16 PM) Temperature Oral 98.2 DegF [96.4-99.1 DegF] (01/26/18 4:16 PM) Blood Pressure 165/82 mmHg [90-140/60-90 mmHg] *HI* (01/26/18 4:16 PM) Respiratory Rate 18 BRMIN [14-20 BRMIN] (01/26/18 4:16 PM) Peripheral Pulse 63 bpm Rate [60-100 bpm] (01/26/18 4:16 PM) Weight 81.818 kg (01/26/18 4:16 PM) Body Mass Index 27.43 m2 (01/26/18 4:16 PM) Problem List Condition Effective Dates Status Health Status Informant Acute sinusitis, Resolved unspecified(Confirme d) Allergy(Confirmed) Resolved Anxiety(Confirmed) Active Arthropathy(Confirme Resolved d) Bronchitis(Confirmed Resolved ) CAD (coronary artery Active disease)(Confirmed) Deviated nasal Resolved septum(Confirmed) Diabetes mellitus Resolved type 2(Confirmed) Diaphragmatic Resolved hernia(Confirmed) Diarrhea(Confirmed) Resolved Bladder disorder, Resolved unspecified(Confirme d) Diverticulitis(Confi Resolved rmed) SOB (shortness of Active breath) on exertion(Confirmed) Hemorrhoids, Resolved external(Confirmed) Hematuria, Resolved gross(Confirmed) GERD Resolved (gastroesophageal reflux disease)(Confirmed) History of Active melanoma(Confirmed) RINCON (hard of Active hearing)(Confirmed) Hyperlipidemia(Confi Active rmed) Hypertension(Confirm Active ed) Hypothyroidism(Confi Active rmed) Impotence, Resolved organic(Confirmed) Polycystic kidney, Resolved unspecified(Confirme d) Mumps(Confirmed) Resolved Tinnitus(Confirmed) Resolved Vertigo(Confirmed) Resolved Allergies, Adverse Reactions, Alerts Substance Reaction Severity Status tetanus toxoid Active Medications Saline Flush 0.9% 10 mL, Route: IVP, Drug Form: INJ, Dosing Weight 81.818, kg, PRN, PRN Line Flush , Start date: 01/26/18 16:25:00 LEGAL DOCUMENT ASSISTANT, Duration: 30 day, Stop date: 02/25/18 16:24 :00 LEGAL DOCUMENT ASSISTANT Notes: (Same as: BD Posiflush) Start Date: 01/26/18 Stop Date: 01/27/18 Status: Discontinued Results Most recent to 1 oldest [Reference Range]: Neutrophils # 7.5 K/CMM [1.5-8.1 K/CMM] (01/26/18 6:04 PM) Lymphocytes # 2.1 K/CMM [1.0-5.5 K/CMM] (01/26/18 6:04 PM) Monocytes # [0.0-0.8 0.9 K/CMM K/CMM] *HI* (01/26/18 6:04 PM) Eosinophils # 0.3 K/CMM [0.0-0.5 K/CMM] (01/26/18 6:04 PM) Basophils # [0.0-0.2 0.1 K/CMM K/CMM] (01/26/18 6:04 PM) eGFR 49 mL/min/1.73m2 1 *NA* (01/26/18 PM) A/G Ratio [0.7-1.6] 1.0 (01/26/18: PM) Albumin Lvl [3.5-5.0 3.8 g/dL g/dL] (01/26/18 6: PM) Alk Phos [39-136 38 unit/L unit/L] *LOW* (01/26/18 PM) ALT [0-65 unit/L] 22 unit/L (01/26/18 PM) AGAP [10.0-20.0 11.8 mEq/L mEq/L] (01/26/18 PM) AST [0-37 unit/L] 11 unit/L (01/26/18: PM) B/C Ratio [6-25] 12 (01/26/18 PM) Basophils [0.0-1.0 0.9 % %] (01/26/18 PM) BUN [7-22 mg/dL] 17 mg/dL (01/26/18 PM) Calcium Lvl 8.9 mg/dL [8.5-10.5 mg/dL] (01/26/18: PM) Total CK [12-191 51 unit/L unit/L] (01/26/18: PM) Chloride Lvl [95-109 95 mEq/L mEq/L] (01/26/18 PM) CO2 [24-32 mEq/L] 30 mEq/L (01/26/18: PM) Creatinine Lvl 1.36 mg/dL [0.50-1.40 mg/dL] (01/26/18: PM) Eosinophils [0.0-4.0 3.0 % %] (01/26/18 PM) Globulin [2.7-4.2 3.7 g/dL g/dL] (01/26/18 6: PM) Glucose Lvl [70-99 112 mg/dL mg/dL] *HI* (01/26/18 PM) Hct [36.0-48.0 %] 39.5 % 2 (01/26/18 6:04 PM) Hgb [12.0-16.0 g/dL] 13.3 g/dL 3 (01/26/18 6:04 PM) Potassium Lvl 4.8 mEq/L [3.5-5.1 mEq/L] (01/26/18 6:04 PM) Lymphocytes 19.3 % [20.0-40.0 %] *LOW* (01/26/18: PM) MCH [27.0-31.0 pg] 28.5 pg (01/26/18:04 PM) MCHC [32.0-36.0 33.7 g/dL g/dL] (01/26/18 6:04 PM) MCV [80.0-98.0 fL] 84.4 fL 4 (01/26/18:04 PM) Monocytes [2.0-12.0 8.4 % %] (01/26/18: PM) MPV [7.4-10.4 fL] 9.3 fL (01/26/18:04 PM) Sodium Lvl [135-145 132 mEq/L mEq/L] *LOW* (01/26/18: PM) Platelet [133-450 264 K/CMM K/CMM] (01/26/18:04 PM) Segs [45.0-75.0 %] 68.4 % (01/26/18 6:04 PM) Total Protein 7.5 g/dL [6.4-8.4 g/dL] (01/26/18:04 PM) RBC [4.20-5.40 4.68 M/CMM 5 M/CMM] (01/26/18 6:04 PM) RDW [11.5-14.5 %] 14.7 % *HI* (01/26/18 6:04 PM) Bili Total [0.2-1.3 0.4 mg/dL mg/dL] (01/26/18 6:04 PM) Troponin-I <0.02 ng/mL [0.00-0.40 ng/mL] (01/26/18 6:04 PM) WBC [3.7-10.4 K/CMM] 11.0 K/CMM *HI* (01/26/18 6:04 PM) 1Result Comment: The eGFR is calculated using [...] tiplied by the estimated BMI. 2Result Comment: Reference range changed due to change in patient's sex at 12:06:52. Normal Low changed from 42.0 to 36.0. Normal High changed from 54.0 to 48.0. Result flag changed from L to within range. 3Result Comment: Reference range changed due to change in patient's sex at 12:06:52. Normal Low changed from 14.0 to 12.0. Normal High changed from 18.0 to 16.0. Result flag changed from L to within range. 4Result Comment: Reference range changed due to change in patient's sex at 12:06:52. Normal High changed from 94.0 to 98.0. Result flag not changed. 5Result Comment: Reference range changed due to change in patient's sex at 12:06:52. Normal Low changed from 4.70 to 4.20. Normal High changed from 6.10 to 5.40. Result flag changed from L to within range. Immunizations No data available for this section [...] No entered on: 07/08/17 Assessment and Plan No data available for this section
[2018-08-30 15:05] LABS: BASOPHILS # (AUTO) 0.1 (0.0-0.1); BASOPHILS % 0.9 % (0.0-1.0); EOSINOPHILS # (AUTO) 0.6 (0.0-0.4); EOSINOPHILS % 5.6 % (0.0-6.0); HEMATOCRIT 40.6 % (38.2-49.6); HEMOGLOBIN 13.7 g/dL (14.0-18.0); LYMPHOCYTES # (AUTO) 1.9 (1.0-3.2); LYMPHOCYTES % 19.4 % (18.0-39.1); MEAN CORPUSCULAR HEMOGLOBIN 28.6 pg (28-32); MEAN CORPUSCULAR HGB CONC 33.7 g/dL (31-35); MEAN CORPUSCULAR VOLUME 84.8 fL (81-99); MONOCYTES # (AUTO) 0.8 (0.2-0.8); NEUTROPHILS # (AUTO) 6.4 (2.1-6.9); NEUTROPHILS % 65.6 % (38.7-80.0); PLATELET COUNT 352 x10e3/uL (140-360); RED BLOOD COUNT 4.79 x10e6/uL (4.3-5.7); RED CELL DISTRIBUTION WIDTH 13.7 % (11.7-14.4)
[2018-08-30 15:25] LABS: ALBUMIN/GLOBULIN RATIO 1.2 (0.8-2.0); ANION GAP 13.2 mmol/L (8-16); CALCIUM 9.7 mg/dL (8.4-10.2); CREATININE, SERUM 1.34 mg/dL (0.72-1.25); POTASSIUM 4.2 mmol/L (3.5-5.1)
[2018-08-30 15:31] LABS: CREATINE KINASE MB 1.1 ng/mL (0-5.0)
[2018-08-30 15:34] LABS: INR 0.88; PROTHROMBIN TIME 12.4 seconds (11.9-14.5)
[2018-08-30 15:35] LABS: PARTIAL THROMBOPLASTIN TIME 28.5 seconds (23.8-35.5)
--- NOTE | 2018-08-30 15:39 | Diagnostic Imaging Report ---
EXAMINATION: CHEST 2 VIEWS INDICATION: Weakness. COMPARISON: Chest radiograph 04/28/2018. FINDINGS: TUBES and LINES: None. LUNGS: Lungs are well inflated. There is no evidence of pneumonia or pulmonary edema. PLEURA: Minimal blunting of the left costophrenic angle could represent scarring or trace pleural effusion. HEART AND MEDIASTINUM: The cardiomediastinal silhouette is unremarkable. Atherosclerotic calcification of the aortic arch. There is a cardiac loop recorder. BONES AND SOFT TISSUES: No acute osseous abnormality. UPPER ABDOMEN: No free air under the diaphragm. Surgical clips are present in the right upper quadrant. IMPRESSION: No acute radiographic abnormality. Signed by: Dr. Jonathon Sanchez MD on 08/30/2018 3:36 PM
--- NOTE | 2018-08-30 15:45 | Diagnostic Imaging Report ---
CT BRAIN WO HISTORY: Weakness, possible stroke COMPARISON: MRI of the brain 04/29/2018 Technique: Noncontrast axial scans were obtained from skull base to the vertex. Coronal reconstructions obtained from the axial data. One or more of the following dose reduction techniques were used: Automated exposure control, adjustment of the mA and/or kV according to patient size, and/or utilization of iterative reconstruction technique. DISCUSSION: Scalp/Skull: Unremarkable. Brain sulci: Mildly prominent. Ventricles: Compensatory dilatation. Extra-axial spaces: No masses or fluid collections. Carotid siphon calcifications are present. Parenchyma: Moderate bilateral deep white matter hypodensity is likely chronic microvascular ischemic change. Old lacunar infarcts in the right cerebellum and left jadiel are again noted. Otherwise, no masses, hemorrhage, or large vascular territory acute infarct. Dural sinuses: No abnormal densities. Sellar/Suprasellar region: Intact. Skull base: Intact. Incidental findings: None. IMPRESSION: 1. No acute intracranial abnormalities. 2. Moderate supratentorial chronic microvascular ischemic change. Generalized cerebral volume loss. 3. Old right cerebellar and left pontine lacunar infarcts. Signed by: Dr. Roland Ramsay M.D. on 08/30/2018 3:41 PM
[2018-08-30 15:46] LABS: BILIRUBIN,URINE NEGATIVE (NEGATIVE); CLARITY,URINE CLEAR (CLEAR); COLOR,URINE YELLOW (YELLOW); KETONES,URINE NEGATIVE (NEGATIVE); LEUKOCYTE ESTERASE ,URINE NEGATIVE (NEGATIVE); NITRITE,URINE NEGATIVE (NEGATIVE); PROTEIN,URINE DIPSTICK NEGATIVE (NEGATIVE); URINE UROBILINOGEN 0.2 mg/dL (0.2 - 1)
[2018-08-30 16:01] LABS: WBC,URINE (MAN) 0-5 /HPF (0-5)
[2018-08-30 16:02] LABS: MUCUS,URINE FEW (RARE)
[2018-08-30] MEDS ORDERED: DEXTROSE 50% SYRINGE 50 ML IV PRN (18:30)
[2018-08-30] MEDS ORDERED: SODIUM CHLORIDE FLUSH 10 ML SYR INJ PRN (18:30)
[2018-08-30] MEDS ORDERED: MORPHINE SULFATE 2 MG/ML SYR 1ML IV PRN (18:30)
[2018-08-30] MEDS ORDERED: ASPIRIN 81 MG CHEW TAB PO ONE (18:30)
[2018-08-30] MEDS ORDERED: ONDANSETRON HCL INJ 2MG/ML 2ML 2 MG/ML VIAL IV PRN (18:30)
[2018-08-30] MEDS ORDERED: VITAMIN D400 UNIT PO (18:36)
[2018-08-30] MEDS ORDERED: PANTOPRAZOLE SO40 MG PO (18:36)
[2018-08-30] MEDS ORDERED: MORPHINE SULFATE INJ 4 MG/ML INJ 1ML IV PRN (18:45)
[2018-08-30 20:00] VITALS: BP 172/93
[2018-08-30] MEDS: SODIUM CHLORIDE 0.9% 1000ML 1,000 ML IV SCH ×2 (20:00→20:09)
--- NOTE | 2018-08-30 20:00 | NUR ---
patient received to room 296 via stretcher from the er. no c/o pain noted. ivf initiated per orders. admit assessment/history complete. noted at the bedside. patient/ instructed to call for assistance when needed.
[2018-08-30 20:12] VITALS: BP 172/93
[2018-08-30] MEDS ORDERED: NIFEDIPINE ER30 M1 PO (20:49)
[2018-08-30] MEDS: INSULIN REGULAR, HUMAN 100 UNIT/1 ML 3ML VIAL SQ SCH (21:00)
[2018-08-30] MEDS ORDERED: ATENOLOL50 MG PO (21:11)
[2018-08-30] MEDS ORDERED: QUINAPRIL HCL20 MG PO (21:11)
[2018-08-30] MEDS ORDERED: DIAZEPAM 5 MG TAB PO PRN (21:45)
[2018-08-30] MEDS: HYDRALAZINE HCL 20 MG/ML VIAL IV PRN (22:15)
[2018-08-31] VITALS (8 sets, daily range): BP systolic 153–201; BP diastolic 77–85
[2018-08-31 01:05] LABS: CREATINE KINASE MB 1.2 ng/mL (0-5.0)
--- NOTE | 2018-08-31 03:30 | NUR ---
patient oob to bathroom several times throughout the night with assistance. no c/o pain noted. ivf continue to infuse without difficulty.
[2018-08-31] MEDS: LEVOTHYROXINE SODIUM 100 MCG TAB PO SCH (05:10)
--- NOTE | 2018-08-31 06:01 | Diagnostic Imaging Report ---
EXAMINATION: CHEST SINGLE (PORTABLE) INDICATION: Possible stroke. COMPARISON: Chest radiograph 08/30/2018. FINDINGS: TUBES and LINES: None. LUNGS: Lungs are well inflated. There is no evidence of pneumonia or pulmonary edema. PLEURA: Minimal blunting of the left costophrenic angle could represent scarring or trace pleural effusion versus pleural scarring, unchanged.. HEART AND MEDIASTINUM: The cardiomediastinal silhouette is unremarkable. Atherosclerotic calcification of the aortic arch. There is a implanted cardiac loop recorder. BONES AND SOFT TISSUES: No acute osseous abnormality. UPPER ABDOMEN: No free air under the diaphragm. Surgical clips are present in the right upper quadrant. IMPRESSION: No acute radiographic abnormality. No interval change. Signed by: Dr. Gabriel Daniels M.D. on 08/31/2018 5:58 AM
[2018-08-31 06:31] LABS: BASOPHILS # (AUTO) 0.1 (0.0-0.1); BASOPHILS % 0.6 % (0.0-1.0); EOSINOPHILS # (AUTO) 0.3 (0.0-0.4); HEMATOCRIT 37.5 % (38.2-49.6); HEMOGLOBIN 12.8 g/dL (14.0-18.0); LYMPHOCYTES # (AUTO) 1.7 (1.0-3.2); LYMPHOCYTES % 12.5 % (18.0-39.1); MEAN CORPUSCULAR HEMOGLOBIN 28.6 pg (28-32); MEAN CORPUSCULAR HGB CONC 34.1 g/dL (31-35); MEAN CORPUSCULAR VOLUME 83.7 fL (81-99); NEUTROPHILS # (AUTO) 10.7 (2.1-6.9); NEUTROPHILS % 77.5 % (38.7-80.0); PLATELET COUNT 281 x10e3/uL (140-360); RED BLOOD COUNT 4.48 x10e6/uL (4.3-5.7); RED CELL DISTRIBUTION WIDTH 13.6 % (11.7-14.4)
[2018-08-31 06:47] LABS: ALANINE AMINOTRANSFERASE 17 IU/L (0-55); ALBUMIN 3.6 g/dL (3.5-5.0); ALBUMIN/GLOBULIN RATIO 1.2 (0.8-2.0); ALKALINE PHOSPHATASE 42 IU/L (40-150); ANION GAP 14.8 mmol/L (8-16); BLOOD UREA NITROGEN 13 mg/dL (7-26); BUN/CREATININE RATIO 13 (6-25); CALCIUM 9.4 mg/dL (8.4-10.2); CARBON DIOXIDE 23 mmol/L (22-29); CHLORIDE 96 mmol/L (98-107); CHOL/HDL RATIO 1.9 (3.9-4.7); CHOLESTEROL 119 MD/DL (0-199); CREATININE, SERUM 1.04 mg/dL (0.72-1.25); EST GLOMERULAR FILTRATION RATE > 60 ML/MIN (60-); GLUCOSE 132 mg/dL (74-118); HDL CHOLESTEROL 63 MG/DL (40-60); LDL CHOLESTEROL 40 MG/DL (60-130); POTASSIUM 3.8 mmol/L (3.5-5.1); SODIUM 130 mmol/L (136-145); TRIGLYCERIDES 81 MG/DL (0-149)
[2018-08-31 07:15] LABS: MAGNESIUM 1.6 MG/DL (1.3-2.1)
--- NOTE | 2018-08-31 07:22 | NUR ---
PATIENT ASSISTED TO THE RESTROOM AND BACK TO BED. IV FLUID INFUSING ORDERED. WEAKNESS NOTED TO RIGHT SIDE OF THE BODY, MOSTLY TO RIGHT ARM. IN BED WITH CALL LIGHT AT REACH.
[2018-08-31] MEDS: INSULIN REGULAR, HUMAN 100 UNIT/1 ML 3ML VIAL SQ SCH (07:30)
[2018-08-31 07:37] LABS: THYROID STIMULATING HORMONE 1.596 uIU/mL (0.350-4.940)
[2018-08-31 07:47] LABS: CREATINE KINASE MB 1.4 ng/mL (0-5.0)
[2018-08-31] MEDS ORDERED: NON-FORMULARY MEDICATION (Quinapril Hcl 40 MG) PO SCH (09:00)
[2018-08-31] MEDS ORDERED: ASPIRIN 325 MG TAB EC PO SCH (09:00)
[2018-08-31] MEDS ORDERED: NIFEDIPINE CR 30 MG TAB PO SCH (09:00)
[2018-08-31] MEDS ORDERED: QUINAPRIL HCL 20 MG TAB PO SCH (09:00)
[2018-08-31] MEDS ORDERED: ACETAMINOPHEN 325 MG TAB PO PRN (09:00)
[2018-08-31] MEDS ORDERED: ASPIRIN 325 MG TAB PO SCH (09:00)
[2018-08-31] MEDS ORDERED: NON-FORMULARY MEDICATION (Lactobacillus Acidophilus (Acidophilus) 1 TAB) PO SCH (09:00)
[2018-08-31] MEDS ORDERED: NON-FORMULARY MEDICATION (Cholecalciferol (Vitamin D3) (Vitamin D) 400 UNITS) PO SCH (09:00)
[2018-08-31] MEDS ORDERED: NATEGLINIDE 120 MG TAB PO SCH (09:00)
[2018-08-31] MEDS ORDERED: NON-FORMULARY MEDICATION (Vitamin B Complex (B Complex) 1 TAB) PO SCH (09:00)
[2018-08-31] MEDS: ATENOLOL 50 MG TAB PO SCH ×2 (09:03→17:09)
[2018-08-31] MEDS: CHOLECALCIFEROL 400 UNIT TAB PO SCH (09:03)
[2018-08-31] MEDS: PANTOPRAZOLE SOD 40 MG TABEC PO SCH (09:04)
[2018-08-31] MEDS: FOLIC ACID/CYANOCOB/PYRIDOXINE TAB PO SCH (09:04)
[2018-08-31] MEDS: LACTOBACILLUS ACIDOPHILUS CAPSULE PO SCH (09:04)
[2018-08-31] MEDS: ASPIRIN 81 MG CHEW TAB PO SCH (09:05)
[2018-08-31] MEDS: TAMSULOSIN HCL 0.4 MG CAP PO SCH (09:05)
[2018-08-31] MEDS ORDERED: DEXTROSE 50% SYRINGE 50 ML IV PRN (11:15)
[2018-08-31] MEDS: INSULIN LISPRO 100 UNIT/1 ML 3ML VIAL SQ SCH ×3 (11:30→21:00)
--- NOTE | 2018-08-31 11:50 | NUR ---
PATIENT HAS AN ORDER FOR MRI, REQUESTED A SEDATION BEFORE PROCEDURE. DR THOMPSON'S CARDIOPULMONARY TECHNICIAN NOTIFIED. ORDER RECEIVED TO WAIT FOR THE NEUROLOGIST TO EVALUATE PATIENT BEFORE SEDATION IF NEEDED. PATIENT NOTIFIED OF PLAN OF CARE.
[2018-08-31] MEDS: NATEGLINIDE 120 MG TAB PO SCH (12:30)
[2018-08-31] MEDS ORDERED: LORAZEPAM INJ 2 MG/ML VIAL IV ONE (12:30)
--- NOTE | 2018-08-31 12:52 | NUR ---
PATIENT OFF UNIT TO RADIOLOGY.
--- NOTE | 2018-08-31 13:50 | NUR ---
PATIENT BACK TO UNIT FROM RADIOLOGY.
--- NOTE | 2018-08-31 13:59 | NUR ---
ST NOTE: Order acknowledged for BSE on pt. Attempted at 1315 and 1400, pt in MRI and has been sedated, will complete BSE on 09/01/18
[2018-08-31 14:20] LABS: BASOPHILS # (AUTO) 0.1 (0.0-0.1); BASOPHILS % 0.5 % (0.0-1.0); EOSINOPHILS # (AUTO) 0.2 (0.0-0.4); EOSINOPHILS % 1.3 % (0.0-6.0); HEMATOCRIT 35.6 % (38.2-49.6); LYMPHOCYTES # (AUTO) 1.5 (1.0-3.2); MEAN CORPUSCULAR HEMOGLOBIN 28.3 pg (28-32); MEAN CORPUSCULAR HGB CONC 33.7 g/dL (31-35); MONOCYTES % 9.1 % (4.4-11.3); NEUTROPHILS # (AUTO) 8.5 (2.1-6.9); NEUTROPHILS % 75.5 % (38.7-80.0); PLATELET COUNT 243 x10e3/uL (140-360); RED BLOOD COUNT 4.24 x10e6/uL (4.3-5.7); RED CELL DISTRIBUTION WIDTH 13.9 % (11.7-14.4)
[2018-08-31 14:45] LABS: CREATINE KINASE MB 1.8 ng/mL (0-5.0)
--- NOTE | 2018-08-31 15:03 | NUR ---
CALL RECEIVED FROM DR LANDA GIVING THE FINDINGS ON PATIENT'S MRI. DR VILLAFANA NOTIFIED, WILL BE IN SEE PATIENT TODAY.
--- NOTE | 2018-08-31 15:11 | Diagnostic Imaging Report ---
History: CVA, weakness Comparison studies: Head CT 08/30/2018. Technique: Sagittal and axial T2 FS, axial DWI, axial T2*GRE, axial T1 FLAIR and axial coronal T2 FLAIR. Intravenous contrast: None Findings: Several pulse sequences are somewhat limited by artifacts related to patient motion. Scalp: Normal in signal. No masses. Bone marrow: Normal in signal intensity. Brain sulci: Appropriate size for patient's age. Ventricles: Mild compensatory dilatation. No hydrocephalus. Extra axial spaces: No mass, no fluid collection. Parenchyma: Focal acute nonhemorrhagic ischemia in the left precentral radiata with associated restricted diffusion and T2 FLAIR hyperintensity. No mass, hemorrhage or other foci of acute ischemia. Scattered and confluent T2 FLAIR hyperdense foci in the supra tentorial white matter nonspecific most compatible with chronic microvascular ischemic changes. Unchanged chronic lacunar infarcts in the right cerebellum, jadiel, left lentiform nucleus and bilateral subinsular white matter. Suprasellar region: No abnormalities. Craniocervical junction: Patent foramen magnum. No Chiari malformation. Vessels: Nonvisualized right vertebral artery flow-void, unchanged. Please refer to dedicated neck CT report from the same date for further characterization of the vasculature. Flow-voids of the remaining major intracranial arteries and dural venous sinuses are maintained. Incidental findings: Mild scattered nonspecific mucosal thickening in the ethmoid air cells. IMPRESSION: Exam somewhat limited by motion artifacts. In spite of limitations: 1. Small focal acute nonhemorrhagic infarct in the left precentral jones radiata in a location which could account for patient's localizing right-sided weakness. 2. Moderate chronic microvascular ischemic changes with multiple chronic lacunar infarcts as described. 3. Chronically occluded right intradural vertebral artery. Findings discussed with ALISA Booker by Dr. Magallon at 2:56 PM on 08/31/2018. Signed by: Dr. Waylon Magallon M.D. on 08/31/2018 3:08 PM
[2018-08-31] MEDS ORDERED: SODIUM CHLORIDE 0.9% 100 ML 100 ML ONE (15:26)
[2018-08-31] MEDS ORDERED: IOPAMIDOL 370 MG/ML 200 ML INFUS..BTL INJ ONE (15:26)
[2018-08-31] MEDS ORDERED: ONDANSETRON HCL 4 MG ORAL DISINTEGRATING TAB PO PRN (15:45)
--- NOTE | 2018-08-31 15:56 | Diagnostic Imaging Report ---
History: CVA, prior stroke, carotid stenosis. Comparison studies:Prior MRA of 11/16/2015 is unavailable on the PACS for comparison. Technique: Axial images were obtained from the thoracic inlet. Coronal and sagittal images reconstructed from the axial data. Additional multiplanar MIP and volume rendered 3-D images were reconstructed from the axial source data. Dose modulation, iterative reconstruction, and/or weight based adjustment of the mA/kV was utilized to reduce the radiation dose to as low as reasonably achievable. Intravenous contrast: 100 cc of Isovue-370. If present, stenosis is calculated utilizing the NASCET method which calculates the degree of stenosis with reference to the normal lumen of the carotid artery distal to the stenosis. Findings: Aortic arch and major vessels: Scattered calcified plaque throughout the aortic arch, brachiocephalic trunk, subclavian arteries and at the origin of the left common carotid artery without significant stenosis. Common carotid arteries: Patent bilaterally with mild scattered calcified and soft plaque without significant stenosis. Carotid bulbs: Moderate calcified and soft plaque in the carotid bulbs bilaterally with no significant stenosis on the right (0% by NASCET criteria) and approximately 20% stenosis on the left. Internal carotid arteries: Patent and mildly tortuous bilaterally. Mild calcified plaque at the right ICA origin without significant stenosis. Moderate calcified plaque at the left ICA origin with approximately 30-40% stenosis. Anatomical variant retropharyngeal course of the left internal carotid artery which indents the posterior wall the oral pharynx. Left vertebral artery: Patent, no abnormalities. Right vertebral artery: Occluded at its origin and in the V1 segment. Trace contrast with string sign within the right V2 segment which is presumably supplied by collaterals. Patent V3 segment with nonopacified/occluded right V4 segment. No flow visualized within the right cervical and intracranial vertebral artery as reported on the neck MRA of 11/16/2015. Included kiana of Camacho: Patent internal carotid arteries with calcified and soft plaque in the left cavernous segment which result in approximately 30-40% short segmental stenosis. Additional scattered calcified plaque in the left cavernous and bilateral paraophthalmic segment without significant stenosis. Proximal LORNA, MCA and FOREIGN CLERK branches are patent. Incidental bilateral FOREIGN CLERK origins. Incidental findings: Mild multilevel degenerative changes in the cervical spine. Small/atrophic thyroid gland. IMPRESSION: 1. Moderate atherosclerosis with atherosclerotic plaque described. 2. Approximately 20% stenosis at the left carotid bulb, 30-40% stenosis at the left ICA origin and 30-40% stenosis in the left cavernous ICA segment. 3. No stenosis at the right carotid bulb (0% by NASCET criteria). 4. Chronically occluded right vertebral artery at its origin with faint reconstituted flow via collaterals in the right V2 segment, patent V3 segment and occluded intradural V4 segment. 5. Patent, no stenosis in the left vertebral artery. Signed by: Dr. Waylon Magallon M.D. on 08/31/2018 3:53 PM
[2018-08-31] MEDS: FAMOTIDINE 20 MG TAB PO SCH (17:08)
--- NOTE | 2018-08-31 19:00 | NUR ---
patient received awake, alert, lying quietly in bed. no c/o pain noted. ivf continue to infuse without difficulty. here to see patient at this time. pm assessment complete. noted at the bedside. patient/ instructed to call for assistance when needed.
--- NOTE | 2018-08-31 21:00 | NUR ---
lrg bm noted at this time. skin care provided. patient offered a shower but he refuses at this time. complete bed change done.
[2018-08-31] MEDS: SIMVASTATIN 80 MG TAB PO SCH (21:40)
[2018-08-31] MEDS: ENOXAPARIN SOD INJ 40 MG/0.4 ML SYR SC SCH (21:40)
[2018-08-31] MEDS: SODIUM CHLORIDE 0.9% 1000ML 1,000 ML IV SCH (23:00)
[2018-09-01] VITALS (7 sets, daily range): BP systolic 156–175; BP diastolic 72–80
--- NOTE | 2018-09-01 02:08 | Consultation ---
DATE OF CONSULTATION: 08/31/2018 Neurology Consult Note HISTORY OF PRESENT ILLNESS: Mr. Cueto is a 78-year-old right-hand dominant man with multiple vascular risk factors admitted to [facility] on August 30, 2018 with a stroke. At approximately 0800 hours on August 29, 2009, the patient experienced the abrupt onset of dysarthria, right arm and leg weakness and numbness with the arm being more affected than the leg, poor balance, and gait impairment. Mr. Cueto does not report a visual field cut or other disturbance, aphasia, facial droop, dizziness, or confusion associated with the above symptoms. According to Mr. Cueto, the patient was uncertain as to whether or not he was having a stroke. However, when his symptoms worsened on August 30, 2018, the patient proceeded to the Emergency Center at [facility] for further evaluation of his symptoms. Upon arrival in the emergency center, the patient was afebrile with a blood pressure of 132/71 mmHg and a pulse of 18 breaths per minute. His neurological examination was significant for weakness of the right arm and right leg. Abnormality on the kehfxx-rfse-bmzcxb test of the right arm was noted as well. No other deficits were noted. While in the Emergency Center, a CT of the brain without contrast was performed. This study did not reveal evidence of recent large territorial ischemia or hemorrhage. Mr. Cueto was then admitted to [facility] as an inpatient for further evaluation and treatment of his symptoms. Mr. Cueto experienced similar symptoms in April of 2018 when he experienced a transient ischemic attack. At that time, Mr. Cueto was taking aspirin 81 mg by mouth daily and Plavix 75 mg by mouth daily for stroke prophylaxis. At present, the patient is only taking aspirin 81 mg by mouth daily for stroke prophylaxis. Plavix was discontinued approximately 6 weeks ago when the patient was noted to have hematuria. The hematuria did resolve with discontinuation of Plavix. REVIEW OF SYSTEMS: Dysarthria, right hemiparesis, right hemihypesthesia, poor balance, impairment of gait. Otherwise, a 12-point review of systems is negative. PAST MEDICAL HISTORY: Hypertension, hyperlipidemia, diabetes mellitus type 2, prior transient ischemic attack in April 2018, thyroid disease, gastroesophageal reflux disease, and benign prostatic hypertrophy. PAST SURGICAL HISTORY: Appendectomy, cholecystectomy, removal of a rib on the left. PAST HOSPITALIZATIONS: Surgeries/procedures: As listed, transient ischemic attack in April 2018. FAMILY MEDICAL HISTORY: The patient's paternal and maternal grandparents are . Their medical histories are unknown. The patient's father is from mesothelioma. His mother is from a stroke. Mr. Cueto has 4 brothers, all of whom are alive. Their medical histories are unknown. The patient has two children, both sons, who are reportedly healthy. SOCIAL HISTORY: The patient is . He is retired. The patient does report a prior history of tobacco use, but quit smoking cigarettes in 1969. The patient does not report current or prior alcohol or recreational drug use. HOME MEDICATIONS: Aspirin 81 mg by mouth daily, atenolol 50 mg by mouth twice daily, quinapril 40 mg by mouth twice daily, simvastatin 80 mg by mouth at bedtime daily, metformin 500 mg by mouth twice daily with meals, Starlix 60 mg by mouth daily, cholecalciferol 400 units by mouth daily, diazepam 10 mg by mouth daily as needed, lactobacillus one tablet by mouth daily, levothyroxine 100 mcg by mouth daily, nifedipine 30 mg by mouth daily, pantoprazole 40 mg by mouth daily, tamsulosin 0.4 mg by mouth daily and vitamin B complex one tablet by mouth daily. HOSPITAL MEDICATIONS: Tylenol, aspirin, atenolol, vitamin D3, diazepam, Lovenox, Pepcid, Nephro-Sabra, hydralazine, Humalog, lactobacillus, levothyroxine, morphine sulfate, Starlix, nifedipine, Zofran, Protonix, quinapril, Zocor, and tamsulosin. ALLERGIES: TETANUS VACCINE AND TOXOID. NO KNOWN FOOD ALLERGIES. NO KNOWN ALLERGIES TO LATEX. NO KNOWN ALLERGIES TO IODINE OR OTHER CONTRAST MATERIALS. PHYSICAL EXAMINATION: VITAL SIGNS: Height 68 inches, weight 168 pounds, BMI 25.5 kg/m2, blood pressure 153/79 mmHg, pulse 65 beats per minute, respiratory rate 18 breaths per minute, and oxygen saturation 98% on room air. GENERAL: The patient is awake and alert, in no apparent distress. HEENT: Normocephalic, atraumatic. Pupils are equal, round, and reactive to light. Moist mucous membranes. NECK: Supple. No appreciable thyromegaly. No appreciable carotid bruits. CARDIOVASCULAR: S1, S2, regular rate and rhythm. No murmurs, rubs, or gallops. RESPIRATORY: Clear to auscultation bilaterally. No wheezes, rhonchi, or rales. EXTREMITIES: The skin is warm and dry. No clubbing, cyanosis, or edema. The posterior tibial and dorsalis pedis pulses are 1+ and symmetric. SKIN: No rashes or lesions. NEUROLOGIC: Memory/Attention: The patient is awake and alert, oriented to person, place, time, and situation. Cranial Nerves: Cranial nerve I - not tested. Cranial nerve II, III, IV, and - pupils are equal and round, react briskly to light (from 4 mm to 2 mm). Extraocular movements intact. No nystagmus. Cranial nerve V - sensation to light touch and pinprick is intact in the bilateral V1 through V3 distributions. Strength of the temporalis and masseter muscles is within normal limits. Cranial nerve VII - the face is asymmetric on the right as are all facial movements. Mild central right facial weakness is appreciated. Cranial nerve VIII - hearing is diminished to finger rub bilaterally. Cranial nerve IX, X - the soft palate elevates equally and symmetrically. Cranial nerve XI - normal strength of the bilateral sternocleidomastoid and trapezius muscles. Cranial nerve XII - the tongue protrudes midline and moves symmetrically from [id number]-ni-srpu. Strength: Bulk is normal. Strength is 5/5 in the left deltoid, biceps, triceps, wrist flexors and extensors, finger flexors and extensors, intrinsic hand muscles, hip flexors, knee flexors and extensors, ankle dorsiflexion and plantar flexion, and intrinsic foot muscles. Strength is grossly 1 to 2/5 in the right arm with mildly decreased tone. Strength is 3+ to 4/5 in the right leg with mildly decreased tone. DTRs: Deep tendon reflexes are 2+ at the left triceps, biceps, brachioradialis, and patella. Deep tendon reflexes are 3+ at the right triceps, biceps, brachioradialis, and patella. Deep tendon reflexes are absent and symmetric at the Achilles. Plantar responses are flexor on the left and extensor on the right. Sensation: Sensation is intact to light touch and pinprick in both arms and both legs. Cerebellar: Fpduhs-keoh-qwoeci and heel-gamez movements are intact without dysmetria or other impairment on the left. Lbcffn-yubd-obrbec movements cannot be completed on the right, but this is within the bounds of paresis. Heel-gamez movements are intact on the right. Gait: Deferred. Speech: Spontaneous speech is mildly dysarthric without appreciable aphasia. Repetition is intact. Involuntary movements: None. Pronator Drift: As per motor exam. Positive drift in the right leg. LABORATORY DATA: The most recent comprehensive metabolic panel is significant for a sodium of 130, chloride of 96, glucose of 132. Cardiac enzymes are negative x4. B-natriuretic peptide 80.4. Total cholesterol 119, triglycerides 81, LDL cholesterol 40, HDL cholesterol 63. TSH 1.596. Hemoglobin A1c 6.6. His CBC with differential and platelets revealed a mildly elevated white blood cell count of 11.29 with a left shift with 75.5% neutrophils, 13.0% lymphocytes, 9.1% monocytes, 1.3% eosinophils, and 0.5% basophils. The hemoglobin and hematocrit are 12.0 and 35.6, respectively. The platelet count is 243. A coagulation profile is within normal limits. A urinalysis is unremarkable. A urine culture is pending. DIAGNOSTIC STUDIES: Chest x-ray of 08/30/2018: No acute radiographic abnormality. CT of the brain without contrast of 08/30/2018: On my review, there is no evidence of recent or remote large territorial ischemia, hemorrhage, mass, or mass effect. Chronic lacunar infarcts are seen in the right cerebellum and left jadiel. There is mild diffuse cerebral atrophy with compensatory dilatation of the ventricles. Their findings compatible with moderate to severe chronic small vessel ischemic disease. Electrocardiogram of 08/31/2018: Sinus rhythm at 70 beats per minute with premature supraventricular complexes. Left axis deviation. Echocardiogram of 08/31/2018: Ejection fraction 50% to 55%. Concentric left ventricular hypertrophy. Bilateral carotid artery ultrasound with Doppler of 08/31/2018: There is atherosclerosis without hemodynamically significant stenosis at the bilateral carotid bulbs, bilateral carotid bifurcations, and right internal carotid artery. There is atherosclerosis with possible hemodynamically significant stenosis at the left internal carotid artery. Chest x-ray of 08/31/2018: No acute radiographic abnormality. No interval change. CTA of the neck of 08/31/2018: 1. Moderate atherosclerosis with atherosclerotic plaque described. 2. Approximately 20% stenosis of the left carotid bulb, 30-40% stenosis at the left ICA origin, and 30-40% stenosis in the left cavernous ICA segment. 3. No stenosis at the right carotid bulb (0% by NASCET criteria). 4. Chronically occluded right vertebral artery at its origin with faint reconstituted flow via collaterals in the right V2 segment, patent V3 segment, and occluded intradural V4 segment. 5. Patent, no stenosis in the left vertebral artery. 6. MRI of the brain without contrast of 08/31/2018: There is an acute ischemic stroke in the left precentral jones radiata. Chronic lacunar infarcts in the right cerebellum and left jadiel are once again noted. There is mild diffuse cerebral atrophy with compensatory dilatation of the ventricles, appropriate for the patient's age. There are scattered and confluent T2/FLAIR hyperintense foci in the supratentorial and infratentorial white matter compatible with moderate chronic small vessel ischemic disease. ASSESSMENT AND PLAN: Mr. Cueto is a 78-year-old right-hand dominant man with multiple vascular risk factors admitted with an ischemic stroke in the left middle cerebral artery distribution with residual right hemiparesis, subjective right hemihypesthesia, poor balance, gait impairment, and dysarthria. The patient's laboratory data and other diagnostic studies have been reviewed and are documented above. Mr. Cueto has undergone a complete stroke evaluation. RECOMMENDATIONS: Are as follows: 1. For the time being, treatment with aspirin 81 mg by mouth daily will be continued for stroke prophylaxis. 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 Howell. Mr. Cueto has had a stroke while being treated only with aspirin for stroke prophylaxis. Approximately 4 months ago, he had a transient ischemic attack while being treated with aspirin and Plavix. It is my recommendation, the patient will be treated with Eliquis 2.5 mg by mouth twice daily for stroke prophylaxis. 2. As there is no critical stenosis in the left carotid artery system, the patient's blood pressure may be gradually normalized to goal of less than 140/90 mmHg prior to discharge. Long-term, the patient's goal blood pressure is less than 130/70 mmHg. Continue with current antihypertensive medications. Monitor the patient's vital signs per unit protocol and add/adjust medications as necessary. 3. The patient's total cholesterol and LDL are at goal. Continue treatment with simvastatin 80 mg by mouth at bedtime daily. 4. The patient's hemoglobin A1c is at goal. Continue treatment with current oral hypoglycemic medications. Continue with sliding scale insulin per protocol. Tight glycemic control is recommended while the patient is hospitalized. 5. Orders for both Speech and Physical Therapy consultations have been placed. The Speech therapy consultation is pending. The Physical therapy consultation is pending as well. 6. Gastrointestinal prophylaxis with Protonix 40 mg by mouth daily. 7. Deep venous thrombosis prophylaxis with Lovenox 40 mg subcutaneously daily. 8. Defer treatment of the remaining medical comorbidities to the primary and other services following the patient. Thank you for this consultation. I will continue to follow the patient while he remains in the hospital. TIME SPENT: 50 minutes. Latrice Mirza MD CP/YUVAL /[id number] MTDD
[2018-09-01 03:04] LABS: BASOPHILS # (AUTO) 0.1 (0.0-0.1); BASOPHILS % 0.8 % (0.0-1.0); EOSINOPHILS # (AUTO) 0.3 (0.0-0.4); EOSINOPHILS % 3.9 % (0.0-6.0); HEMATOCRIT 35.8 % (38.2-49.6); HEMOGLOBIN 11.9 g/dL (14.0-18.0); LYMPHOCYTES # (AUTO) 1.9 (1.0-3.2); LYMPHOCYTES % 21.8 % (18.0-39.1); MEAN CORPUSCULAR HEMOGLOBIN 28.1 pg (28-32); MEAN CORPUSCULAR HGB CONC 33.2 g/dL (31-35); MEAN CORPUSCULAR VOLUME 84.6 fL (81-99); MONOCYTES # (AUTO) 0.8 (0.2-0.8); MONOCYTES % 8.9 % (4.4-11.3); NEUTROPHILS # (AUTO) 5.6 (2.1-6.9); PLATELET COUNT 255 x10e3/uL (140-360); RED BLOOD COUNT 4.23 x10e6/uL (4.3-5.7)
[2018-09-01 03:23] LABS: ANION GAP 12.8 mmol/L (8-16); BLOOD UREA NITROGEN 13 mg/dL (7-26); BUN/CREATININE RATIO 13 (6-25); CALCIUM 8.9 mg/dL (8.4-10.2); CARBON DIOXIDE 23 mmol/L (22-29); CHLORIDE 97 mmol/L (98-107); CREATININE, SERUM 1.04 mg/dL (0.72-1.25); EST GLOMERULAR FILTRATION RATE > 60 ML/MIN (60-); GLUCOSE 88 mg/dL (74-118); MAGNESIUM 1.7 MG/DL (1.3-2.1); POTASSIUM 3.8 mmol/L (3.5-5.1); SODIUM 129 mmol/L (136-145)
--- NOTE | 2018-09-01 04:53 | Consultation ---
DATE OF CONSULTATION: 08/31/2018 Cardiology Consultation REASON FOR CONSULTATION: CVA. HISTORY OF PRESENT ILLNESS: This is a 78-year-old man with history of coronary artery disease, cryptogenic CVA, diabetes mellitus, chronic kidney disease, hypertension, hyperlipidemia, peripheral arterial disease, and hypothyroidism, who presents with right-sided weakness. The patient reports he developed right-sided weakness on Thursday afternoon. He presented to see Dr. Howell yesterday and was instructed to present to the ER for further evaluation. MRI of the brain was performed and revealed small focal acute nonhemorrhagic infarct in the left precentral jones radiata in the location, which could account for the patient's localizing right-sided weakness or chronic microvascular ischemic changes with multiple chronic nuclear infarcts as described, chronically occluded right intradural vertebral artery. Cardiology was consulted for further evaluation. The patient denies other cardiac systems. Denies chest pain or shortness of breath. Cardiology was consulted for evaluation. The patient denies chest pain, shortness of breath, edema, orthopnea, or PND, but he does report an episode of palpitation on Thursday. REVIEW OF SYSTEMS: Negative as per HPI. PAST MEDICAL HISTORY: As above. SURGICAL HISTORY: 1. Hiatal hernia. 2. Appendectomy. 3. Cholecystectomy. 4. Melanoma resection. ALLERGIES: PLEASE SEE EMR. MEDICATIONS: Please see medication list. SOCIAL HISTORY: Prior tobacco. No alcohol, or illicit drugs. FAMILY HISTORY: Noncontributory to current illness. PHYSICAL EXAMINATION: VITAL SIGNS: Temperature 98.6 degrees, pulse 91, respiratory rate 18, blood pressure 153/79, and oxygen saturation 95%. GENERAL: Well-developed, well-nourished man, in no acute distress. Awake and alert. HEENT: Normocephalic, atraumatic. Pupils equal. No scleral icterus. NECK: Supple. No thyroid or cervical lymphadenopathy. No carotid bruits. LUNGS: Clear to auscultation bilaterally. No wheezes or crackles. CARDIOVASCULAR: Normal rate. Regular rhythm. No murmur. Normal S1, S2. ABDOMEN: Soft, nontender. EXTREMITIES: No edema. NEURO: Right-sided weakness is noted. LABORATORY DATA: WBC 11.29, hemoglobin 12, hematocrit 35.6, and platelets 243. Sodium 130, potassium 3.8, chloride 96, CO2 of 22, BUN 13, and creatinine 1.04. Troponin 0.225. EKG; sinus rhythm with premature supraventricular complexes, left axis deviation, septal infarct, age undetermined. IMPRESSION: 1. Acute cerebrovascular accident. 2. Coronary artery disease. 3. Peripheral arterial disease. 4. Hypertension. 5. Hyperlipidemia. 6. Diabetes mellitus. 7. Hypothyroidism. RECOMMENDATIONS: Permissive hypertension, given acute CVA. We will interrogate the patient's to evaluate for arrhythmias. Review carotid Doppler. Continue home cardiac medications. Monitor the patient on telemetry, while admitted. PT and OT will review the patient's prior echocardiogram to see if bubble study has previously been performed. Thank you for this consult. We will continue to follow. Susie Mcintosh MD ABS/MODL /[id number]
[2018-09-01] MEDS: LEVOTHYROXINE SODIUM 100 MCG TAB PO SCH (05:37)
--- NOTE | 2018-09-01 07:10 | NUR ---
Pt received in bed with eyes open. AOX4 and able to verbalize needs. Denies any pain at this time. Pt is able to verbalize needs.
[2018-09-01] MEDS: INSULIN LISPRO 100 UNIT/1 ML 3ML VIAL SQ SCH ×4 (07:30→21:00)
[2018-09-01] MEDS: NATEGLINIDE 120 MG TAB PO SCH (08:33)
[2018-09-01] MEDS: FAMOTIDINE 20 MG TAB PO SCH ×2 (08:33→17:14)
[2018-09-01] MEDS: PANTOPRAZOLE SOD 40 MG TABEC PO SCH (08:34)
[2018-09-01] MEDS: LACTOBACILLUS ACIDOPHILUS CAPSULE PO SCH (08:34)
[2018-09-01] MEDS: TAMSULOSIN HCL 0.4 MG CAP PO SCH (08:34)
[2018-09-01] MEDS: FOLIC ACID/CYANOCOB/PYRIDOXINE TAB PO SCH (08:34)
[2018-09-01] MEDS: ASPIRIN 81 MG CHEW TAB PO SCH (08:34)
[2018-09-01] MEDS: CHOLECALCIFEROL 400 UNIT TAB PO SCH (08:35)
[2018-09-01] MEDS: ATENOLOL 50 MG TAB PO SCH ×2 (10:13→17:15)
[2018-09-01] MEDS: SODIUM CHLORIDE 0.9% 1000ML 1,000 ML IV SCH (15:08)
--- NOTE | 2018-09-01 16:13 | NUR ---
CALL PLACED TO [facility] FOR INPT REHAB ORDER. STATES OK IF RECOMMENDED BY PT. INFORMED INPT REHAB WAS [place] RECOMMENDATION IN MDR. MET W THE PT AND SPOUSE AT THE BEDSIDE. STATES DR. GHOTRA HAD NOT MENTIONED INPT REHAB. EXPLAINED THE IMPORTANCE OF INPT REHAB. THEY VERBALIZED UNDERSTANDING PROVIDED PT A LIST OF INPT REHABS. AGREED FOR PT AND SPOUSE TO SPEAK W DR. VILLAFANA AND SARMAD BEFORE DECIDING ON AN INPT REHAB. STATES SHE WAS NOT SURE IF DR. VILLAFANA WANTED TO RUN OTHER TESTS OR CONSIDER SURGERY FOR CAROTID BLOCKAGE. WE AGREED TO MEED TOMORROW AFTER 1PM.
[2018-09-01] MEDS: ENOXAPARIN SOD INJ 40 MG/0.4 ML SYR SC SCH (17:15)
--- NOTE | 2018-09-01 18:00 | NUR ---
Pt in bed. AOX4 and able to verbalize needs. Dr. Mirza was here to see and did recommend in patient rehab. Pt denies any pain at this time.
--- NOTE | 2018-09-01 20:21 | Progress Note ---
DATE: 09/01/2018 Cardiology Progress Note SUBJECTIVE: The patient denies chest pain or shortness of breath. OBJECTIVE: VITAL SIGNS: Temperature 96.9 degrees, pulse 89, respiratory rate 18, blood pressure 159/78, oxygen saturation 94% on room air. GENERAL: Elderly man, in no acute distress. Awake and alert. LUNGS: Clear to auscultation bilaterally. No wheezes or crackles. CARDIOVASCULAR: Normal rate. Regular rhythm. No murmur. Normal S1 and S2. ABDOMEN: Soft and nontender. EXTREMITIES: No edema. NEURO: Right-sided weakness is noted. CARDIAC MEDICATIONS: 1. Atenolol 50 mg p.o. b.i.d. 2. Aspirin 81 mg p.o. daily. 3. Levothyroxine 100 mcg p.o. daily. 4. Simvastatin 80 mg p.o. at bedtime. LABORATORY DATA: WBC 8.78, hemoglobin 11.9, hematocrit 35.8, and platelets 255. Sodium 129, potassium 3.8, chloride 97, CO2 23, BUN 13, and creatinine 1.04. TELEMETRY: Normal sinus rhythm. IMPRESSION: 1. Acute cerebrovascular. 2. Coronary artery disease. 3. Peripheral arterial disease. 4. Hypertension. 5. Hyperlipidemia. 6. Diabetes mellitus. 7. Hypothyroidism. RECOMMENDATIONS: Permissive hypertension per Neurology. The patient's ILR was interrogated without evidence of arrhythmia. Continue current cardiac medications otherwise. LDL is at goal. Maintain the patient on telemetry. Continue risk factor modification. PT and OT as tolerated. We will review office records to determine if bubble study has previously been performed. Thank you for this consult. We will continue to follow. Susie Mcintosh MD ABS/MODL /[id number]
[2018-09-01] MEDS: SIMVASTATIN 80 MG TAB PO SCH (21:00)
[2018-09-01] MEDS ORDERED: TEMAZEPAM 15 MG CAP PO PRN (21:30)
[2018-09-02] VITALS: BP 160/74
[2018-09-02 04:00] VITALS: BP 211/95
[2018-09-02] MEDS: HYDRALAZINE HCL 20 MG/ML VIAL IV PRN (04:27)
[2018-09-02] MEDS: LEVOTHYROXINE SODIUM 100 MCG TAB PO SCH (04:42)
[2018-09-02 06:16] LABS: BASOPHILS # (AUTO) 0.1 (0.0-0.1); BASOPHILS % 1.1 % (0.0-1.0); EOSINOPHILS # (AUTO) 0.6 (0.0-0.4); EOSINOPHILS % 6.5 % (0.0-6.0); HEMATOCRIT 37.4 % (38.2-49.6); HEMOGLOBIN 12.5 g/dL (14.0-18.0); LYMPHOCYTES # (AUTO) 1.9 (1.0-3.2); MEAN CORPUSCULAR HEMOGLOBIN 28.3 pg (28-32); MEAN CORPUSCULAR HGB CONC 33.4 g/dL (31-35); MEAN CORPUSCULAR VOLUME 84.8 fL (81-99); MONOCYTES # (AUTO) 0.8 (0.2-0.8); MONOCYTES % 8.3 % (4.4-11.3); NEUTROPHILS # (AUTO) 6.1 (2.1-6.9); NEUTROPHILS % 63.6 % (38.7-80.0); PLATELET COUNT 281 x10e3/uL (140-360); RED BLOOD COUNT 4.41 x10e6/uL (4.3-5.7); RED CELL DISTRIBUTION WIDTH 13.7 % (11.7-14.4)
[2018-09-02 06:35] LABS: BLOOD UREA NITROGEN 14 mg/dL (7-26); BUN/CREATININE RATIO 14 (6-25); CALCIUM 9.2 mg/dL (8.4-10.2); CARBON DIOXIDE 25 mmol/L (22-29); CHLORIDE 96 mmol/L (98-107); CREATININE, SERUM 0.99 mg/dL (0.72-1.25); EST GLOMERULAR FILTRATION RATE > 60 ML/MIN (60-); GLUCOSE 108 mg/dL (74-118); MAGNESIUM 1.6 MG/DL (1.3-2.1); SODIUM 129 mmol/L (136-145)
[2018-09-02] MEDS: INSULIN LISPRO 100 UNIT/1 ML 3ML VIAL SQ SCH ×4 (07:30→20:00)
--- NOTE | 2018-09-02 07:42 | NUR ---
Pt in bed with eyes open. Pt is aox4 and able to verbalize needs. Pt is a little forgetful at times. Denies any pain at this time.
[2018-09-02 07:59] VITALS: BP 154/82
[2018-09-02 08:00] VITALS: BP 154/82
[2018-09-02] MEDS: ASPIRIN 81 MG CHEW TAB PO SCH (08:14)
[2018-09-02] MEDS: LACTOBACILLUS ACIDOPHILUS CAPSULE PO SCH (08:14)
[2018-09-02] MEDS: NATEGLINIDE 120 MG TAB PO SCH (08:14)
[2018-09-02] MEDS: TAMSULOSIN HCL 0.4 MG CAP PO SCH (08:14)
[2018-09-02] MEDS: FOLIC ACID/CYANOCOB/PYRIDOXINE TAB PO SCH (08:14)
[2018-09-02] MEDS: FAMOTIDINE 20 MG TAB PO SCH ×2 (08:14→18:07)
[2018-09-02] MEDS: ATENOLOL 50 MG TAB PO SCH ×2 (08:15→18:07)
[2018-09-02] MEDS: CHOLECALCIFEROL 400 UNIT TAB PO SCH (08:15)
[2018-09-02] MEDS: PANTOPRAZOLE SOD 40 MG TABEC PO SCH (08:15)
[2018-09-02] MEDS ORDERED: QUINAPRIL HCL 20 MG TAB PO SCH (09:00)
--- NOTE | 2018-09-02 11:21 | Progress Note ---
DATE: 09/02/2018 Cardiology Progress Note SUBJECTIVE: The patient denies chest pain or shortness of breath. OBJECTIVE: VITAL SIGNS: Temperature 96.4 degrees, pulse 69, respiratory rate 18, blood pressure 154/82, and oxygen saturation 96%. GENERAL: Elderly man, in no acute distress. Awake and alert. LUNGS: Clear to auscultation bilaterally. No wheezes or crackles. CARDIOVASCULAR: Normal rate, regular rhythm. No murmur. Normal S1, S2. ABDOMEN: Soft and nontender. EXTREMITIES: No edema. NEURO: Right-sided weakness remains. CARDIAC MEDICATIONS: Quinapril 20 mg p.o. daily, atenolol 50 mg p.o. b.i.d., aspirin 81 mg p.o. daily, levothyroxine 100 mcg p.o. daily, simvastatin 80 mg p.o. at bedtime, nifedipine 30 mg p.o. daily, rivaroxaban 10 mg p.o. daily. LABORATORY DATA: WBC 9.64, hemoglobin 12.5, hematocrit 37.4, platelets 281. Sodium 129, potassium 4, chloride 96, CO2 of 25, BUN 14, creatinine 0.99. Telemetry; normal sinus rhythm. IMPRESSION: 1. Acute cerebrovascular accident. 2. Coronary artery disease. 3. Peripheral arterial disease. 4. Hypertension. 5. Hyperlipidemia. 6. Diabetes mellitus. 7. Hypothyroidism. RECOMMENDATIONS: The patient has been restarted on antihypertensive therapy. We will gradually lower blood pressure to goal. ILR was without evidence of arrhythmia. Continue current cardiac medications. LDL is at goal. Continue risk factor modification. PT and OT as tolerated. The patient has not had prior bubble study. We will attempt to have this done today. Otherwise, the patient can follow up for bubble study as an outpatient. Thank you for this consult. We will continue to follow. Susie Mcintosh MD ABS/MODL /[id number]
[2018-09-02 12:00] VITALS: BP 118/59
[2018-09-02 16:00] VITALS: BP 146/67
[2018-09-02] MEDS ORDERED: RIVAROXABAN 10 MG TABLET PO SCH (17:00)
--- NOTE | 2018-09-02 18:00 | NUR ---
Pt received authorization to be admitted to [facility] rehab. Notified attending and received orders to discharge to [facility] and continue the same medications. Family notified of discharge plans.
--- NOTE | 2018-09-02 19:47 | NUR ---
Received change of shift report from am nurse. Walking rounds completed. Patient in bed waiting for d/c. Denies pain at this time. Continue monitor.
[2018-09-02] MEDS: SIMVASTATIN 80 MG TAB PO SCH (20:06)
--- NOTE | 2018-09-02 20:25 | NUR ---
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
--- NOTE | 2018-09-02 23:44 | Discharge Summary ---
ADMISSION DIAGNOSES: Cerebrovascular accident, carotid stenosis, hypertension, hyperlipidemia, history of cerebrovascular accident and transient ischemic attack, hypothyroidism, benign prostatic hypertrophy, type 2 diabetes. DISCHARGE DIAGNOSES: Cerebrovascular accident, carotid stenosis, hypertension, hyperlipidemia, history of cerebrovascular accident and transient ischemic attack, hypothyroidism, benign prostatic hypertrophy, type 2 diabetes, chronically occluded right intradural vertebral artery, small focal acute nonhemorrhagic infarct in the left precentral jones radiata. 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 SURGICAL HISTORY: Appendectomy, cholecystectomy, ureteral stent placement and removal, and removal of melanoma on the right arm. FAMILY HISTORY: The patient's great grandfather had diabetes. The patient's father had cancer. The patient's mother had a stroke. SOCIAL HISTORY: Noncontributory. The patient admits to quitting smoking in 1970. HOSPITAL COURSE: A 78-year-old male with right arm and left weakness, that began Thursday prior to admission. He has a history of multiple TIAs with no deficits. He denies numbness, tingling, impaired swallow, and changes in vision. On admission, CT of the brain was negative. Chest x-ray was negative. Aspirin was started. Echo showed an EF of 50% to 55%. His forest manager was consulted as well as Neurology. Bilateral carotid Doppler showed possible evidence of carotid stenosis on the left carotid, so CTA of the neck was ordered that showed approximately 20% stenosis of the left carotid bulb, 30% to 40% stenosis of the left ICA origin, and 30% to 40% stenosis in the left cavernous ICA segment, chronically occluded right vertebral artery at its origin with staged reconstituted flow via collaterals in the right C2 segment patent through V3 segment and occluded intradural V4 segment. No stenosis in the left vertebral artery. MRI of the brain was ordered, which showed a small focal acute nonhemorrhagic infarct in the left precentral jones radiata in the location which could account for the patient's localizing right-sided weakness. It also showed moderate chronic microvascular ischemic changes with multiple chronic lacunar infarcts as described. The patient was started on Lovenox and then switched to Xarelto per Cardiology recommendation. The patient will be discharged to long-term care at PM per patient and family request. Vital signs are stable. The patient is afebrile. He will follow up for an outpatient bubble study if not already completed by his forest manager in the office. The patient understands discharge instructions. Dictated by Malgorzata Velazquez, CRISTHIAN MD NEEL Ruiz/YUVAL /[id number]
== END 2018-09-02 21:00 | DRG 64 ==
LOC: ER 14:07 → ERHOLD 19:06 → MED/SURG3 19:33
PROVIDERS: ADMIT Internal Medicine; ATTEND Internal Medicine
DX: I63.232 Cerebral infarction due to unspecified occlusion or stenosis of left carotid arteries (principal); I63.89 Other cerebral infarction; I10 Essential (primary) hypertension; Z86.73 Personal history of transient ischemic attack (TIA), and cerebral infarction without residual deficits; E03.9 Hypothyroidism, unspecified; I65.02 Occlusion and stenosis of left vertebral artery; Z86.12 Personal history of poliomyelitis; Z85.820 Personal history of malignant melanoma of skin
CPT/HCPCS: 36415; 70450; 70498; 70551; 71045; 71046; 80048; 80053; 80061; 81001; 82550; 82553; 82948; 83036; 83735; 83880; 84100; 84443; 84484; 85025; 85610; 85730; 87086; 92523; 93005; 93306; 93307; 93880; 97139; 99284; J0360; J1650; J2060; J2405; J7030; Q9967

== ENCOUNTER → 2020-01-24 | Day surgery (SDC) | payer MEDICARE, BC ==
[2020-01-19 12:35] LABS: BASOPHILS # (AUTO) 0.1 (0.0-0.1); BASOPHILS % 0.8 % (0.0-1.0); EOSINOPHILS # (AUTO) 0.4 (0.0-0.4); EOSINOPHILS % 3.9 % (0.0-6.0); HEMOGLOBIN 13.8 g/dL (14.0-18.0); LYMPHOCYTES # (AUTO) 1.8 (1.0-3.2); LYMPHOCYTES % 18.6 % (18.0-39.1); MEAN CORPUSCULAR HEMOGLOBIN 30.9 pg (28-32); MEAN CORPUSCULAR HGB CONC 33.7 g/dL (31-35); MEAN CORPUSCULAR VOLUME 91.9 fL (81-99); MONOCYTES # (AUTO) 0.7 (0.2-0.8); MONOCYTES % 7.1 % (4.4-11.3); NEUTROPHILS # (AUTO) 6.7 (2.1-6.9); NEUTROPHILS % 69.1 % (38.7-80.0); PLATELET COUNT 251 x10e3/uL (140-360); RED BLOOD COUNT 4.46 x10e6/uL (4.3-5.7); RED CELL DISTRIBUTION WIDTH 12.2 % (11.7-14.4)
[2020-01-19 13:00] LABS: ALBUMIN 3.8 g/dL (3.5-5.0); ALBUMIN/GLOBULIN RATIO 1.2 (0.8-2.0); ANION GAP 13.8 mmol/L (8-16); CALCIUM 9.3 mg/dL (8.4-10.2); CREATININE, SERUM 1.19 mg/dL (0.72-1.25); POTASSIUM 4.8 mmol/L (3.5-5.1)
[2020-01-24] VITALS (16 sets, daily range): BP systolic 133–223; BP diastolic 66–98
[~2020-01-24] VITALS: Ht 172.7 cm; Wt 75.7 kg
[~2020-01-24] MED LIST changes: +ALPRAZOLAM 0.5 MG TAB ONE; +ASPIRIN 325 MG TAB ONE; +BIVALRIUDIN 250 MG/VIAL VIAL IV ONE; +CHLORZOXAZONE500 MG PO; +CLOPIDOGREL75 MG PO; +DIPHENHYDRAMINE HCL 25 MG CAP ONE; +FENTANYL CITRATE/PF 100MCG/2 ML INJ ONE; +HEPARIN SOD (PORCINE) 1000 UNIT/ML 30ML ONE; +HEPARIN SOD/SOD CHLORIDE 2,000 ML ONE; +IOPAMIDOL 370 MG/ML 200 ML INFUS..BTL INJ ONE; +LABETALOL HCL 20 ML ONE; +LIDOCAINE HCL 2% LOCAL 20 ML VIAL ONE; +MIDAZOLAM HCL 2 MG/2 ML VIAL ONE; +NIFEDIPINE ER30 M1 PO; +NITROGLYCERIN/D5W 200 MCG/ML 250 ML ONE; +ONDANSETRON HCL INJ 2MG/ML 2ML 2 MG/ML VIAL ONE; +PANTOPRAZOLE SO40 MG PO; +PRASUGREL 10 MG TAB ONE; +QUINAPRIL HCL20 MG PO; +SERTRALINE HCL50 MG PO; +SODIUM CHLORIDE 0.9% 1000ML 1,000 ML ONE; +SODIUM CHLORIDE 0.9% 50ML 50 ML ONE; +VITAMIN B-650 MG PO; +VITAMIN D3 PO; +VITAMIN D400 UNIT PO; +[UNRECOGNIZED DRUG - OTHER] PO
--- NOTE | 2020-01-24 12:30 | NUR ---
1230p Recovery phase initiated CCl #9 LAD fix rt groin Bedside report received from Cortez Torres RN. Identifierx2.Alert oriented and appropriate, PERRLA, respirations even and unlabored to room air. Pulses x2 uper extremities . Rt foot no pulses reported to Dr Howell,Right groin dressing dry and intact. pea size bump to site circled and marked. No gross s/s of hematoma or gross abnormality other than no pulses Foot semi cool Dr Howell rechecked foot in [facility] recovery area w/o further intervention requested. Pt with c/o nausea and unable to take po meds- Zofran 4mg ivp ordered received and given at 1300 T/F 60 Effient and 325 ASA tolerated well. at bedside. Assisted pt with po snack. will dc at 5pm.HOB up at 4pm. Skin warm and dry integrity appears intact. IV 0.9 NS to left forearm at 100cchr. presents healthy w/o s/s of infiltration or complaint. Abdomen soft and supple. pt offered toileting, denies need to urinate or defecate. No personal affects with patient. Family at bedside.Pt understanding of POC. Bedside telemetry re-initiated at [facility] rec rm #9. Currently w/o complaint of pain or need. Call light within reach, bed low and locked, side rails up x2. pt using personal mask for COVID-19 mitigation. ankush/alexander
--- NOTE | 2020-01-24 13:00 | NUR ---
1300 Zofran 4mg ivp given for nausea T/R po meds at bedside.
--- NOTE | 2020-01-24 14:00 | NUR ---
1400 Dr Howell, physically examined leg at CCL #9 recovery rm. Noted no pulses to rt leg and saturated and reinforced dressing to rt groin. NO pumb present. Knows bilateral feet different temperature remains at bedside helped with po snack tray tolerated well. Back to baseline orientation. NO gross issue pain pallor pressure or dysrhythmia. Ok for timeline dc at 5pm ds./alexander
--- NOTE | 2020-01-24 14:16 | Operative Report ---
DATE OF PROCEDURE: 01/24/2020 SURGEON: Varun Howell MD INDICATIONS: Coronary artery disease, angina, abnormal stress test. PROCEDURES PERFORMED: 1. Left heart catheterization, selective coronary angiography. 2. Stent placement of the distal left anterior descending artery. 3. Deployment of right wrist TR band. 4. Deployment of right groin Angio-Seal closure device. DESCRIPTION OF PROCEDURE: Access was obtained in the right femoral artery. A 6-Cypriot sheath was placed. Coronary angiography demonstrated 50% distal left main stenosis, ostial circumflex 70% stenosis, and mid circumflex 70% stenosis 2 mm vessel. The LAD had diffuse 50% stenosis. Distal LAD 80% stenosis. Right coronary artery was dominant vessel, 50% mid stenosis. LV end-diastolic pressure of 10. No gradient across the aortic valve on pullback. A decision was made to intervene on the left anterior descending artery. The patient received intravenous Angiomax and oral prasugrel and aspirin for anticoagulation. The left main was cannulated using an XB3.5, 6-Cypriot guiding catheter. A short Runthrough wire was advanced for support, predilatation with a 2 mm stent, following which a single 2.25 x 12 mm Synergy stent was deployed at 14 atmospheres with excellent end result, less than 10% residual stenosis, ROXANNE-3 flow. No complications. Right groin repaired using Angio-Seal closure device. The patient discharged home same day. Varun Howell MD KSB/MODL /[id number]
--- NOTE | 2020-01-24 16:40 | NUR ---
1640p Sitting up to void prior to dc home at 5pm. Noted ooze to rt leg increased. Hob lowered flat and manual pressure applied. Dressing removed and pressure continued applied to groin for additional 10mins. Bp elevated greater [address] Howell and text via cell phone and voice message to return call jace, Called office MD came to phone .Explained to Leland Wolff Rn holding pressure a total 20min,Hematoma and oozing markly reduced but bp elevated and scheduled dc home at 1700pm. Md ordered Labetalol 20ivp now and may dc home if bp less 160 systolic. Currently new dressing on at 1700pm No increased ooze or hematoma noted b/p currently decreasing with labetalol ivp at bedside.ankush/rn
--- NOTE | 2020-01-24 17:30 | NUR ---
1730p phone Dr Howell bp remain elevated ordered another Labetalol 20mg ivp if bp less 180 systolic may dc home to take bp po meds at home.No gross issues pain,pallor or bleeding site healthy and dressing dry and intact Pedal pulses unchanged ds/rn
--- NOTE | 2020-01-24 18:30 | NUR ---
1830p-------Rt -Femoral---s/p fix LAD Dr Howell------- Pt meets discharge criteria. VS wnl, alert and oriented. Pt and Family Understands discharge instruction. Overall general assess w/o gross outliers. Skin warm, dry, and intact. Right groin dressing soft w/o s/s of hematoma. Pedal pulses unchanged. IV removed and appears distal tip is intact. Pt maintains mask on for COVID 19 precautions being taken by wheel chair to awaiting car. Transfers w/o gross distress with discharge paperwork in hand.Bp recovered to 180 systolic aware to take home bp meds on arrival home and make f/o appt as requested ds/rn
== END | disposition home or self-care (01) ==
LOC: CATH LAB 09:20
PROVIDERS: ATTEND Internal Medicine Interventional Cardiology
DX: I25.118 Atherosclerotic heart disease of native coronary artery with other forms of angina pectoris (principal); E11.22 Type 2 diabetes mellitus with diabetic chronic kidney disease; I12.9 Hypertensive chronic kidney disease with stage 1 through stage 4 chronic kidney disease, or unspecified chronic kidney disease; N18.9 Chronic kidney disease, unspecified; Z01.812 Encounter for preprocedural laboratory examination; Z11.59 Encounter for screening for other viral diseases; Z79.82 Long term (current) use of aspirin; Z79.02 Long term (current) use of antithrombotics/antiplatelets; Z79.84 Long term (current) use of oral hypoglycemic drugs; Z86.73 Personal history of transient ischemic attack (TIA), and cerebral infarction without residual deficits; Z95.818 Presence of other cardiac implants and grafts; Z82.49 Family history of ischemic heart disease and other diseases of the circulatory system; Z82.3 Family history of stroke
CPT/HCPCS: 93458; C9600; 36415; 80053; 85025; 92928; 99152; 99153; C1725; C1760; C1769; C1874; J0583; J1644; J2001; J2250; J2405; J3010; J7030; Q9967

== ENCOUNTER 2021-10-30 13:09 | Emergency (ER) | payer MEDICARE, BC ==
[~2021-10-30] VITALS: Ht 172.7 cm; Wt 75.7 kg
[~2021-10-30 13:09] MED LIST changes: -ALPRAZOLAM 0.5 MG TAB ONE; -ASPIRIN 325 MG TAB ONE; -BIVALRIUDIN 250 MG/VIAL VIAL IV ONE; -DIPHENHYDRAMINE HCL 25 MG CAP ONE; -FENTANYL CITRATE/PF 100MCG/2 ML INJ ONE; -HEPARIN SOD (PORCINE) 1000 UNIT/ML 30ML ONE; -HEPARIN SOD/SOD CHLORIDE 2,000 ML ONE; -IOPAMIDOL 370 MG/ML 200 ML INFUS..BTL INJ ONE; -LABETALOL HCL 20 ML ONE; -LIDOCAINE HCL 2% LOCAL 20 ML VIAL ONE; -MIDAZOLAM HCL 2 MG/2 ML VIAL ONE; -NITROGLYCERIN/D5W 200 MCG/ML 250 ML ONE; -ONDANSETRON HCL INJ 2MG/ML 2ML 2 MG/ML VIAL ONE; -PRASUGREL 10 MG TAB ONE; -SODIUM CHLORIDE 0.9% 1000ML 1,000 ML ONE; -SODIUM CHLORIDE 0.9% 50ML 50 ML ONE
[2021-10-30 13:52] LABS: BASOPHILS # (AUTO) 0.1 (0.0-0.1); BASOPHILS % 0.8 % (0.0-1.0); EOSINOPHILS # (AUTO) 0.6 (0.0-0.4); EOSINOPHILS % 5.1 % (0.0-6.0); HEMOGLOBIN 15.6 g/dL (14.0-18.0); LYMPHOCYTES # (AUTO) 2.8 (1.0-3.2); LYMPHOCYTES % 25.6 % (18.0-39.1); MEAN CORPUSCULAR HEMOGLOBIN 29.8 pg (28-32); MEAN CORPUSCULAR HGB CONC 32.5 g/dL (31-35); MEAN CORPUSCULAR VOLUME 91.6 fL (81-99); MONOCYTES # (AUTO) 0.7 (0.2-0.8); NEUTROPHILS # (AUTO) 6.8 (2.1-6.9); PLATELET COUNT 304 x10e3/uL (140-360); RED BLOOD COUNT 5.24 x10e6/uL (4.3-5.7); RED CELL DISTRIBUTION WIDTH 13.4 % (11.7-14.4)
[2021-10-30] MEDS ORDERED: ONDANSETRON HCL INJ 2MG/ML 2ML 2 MG/ML VIAL IV STA (13:59)
[2021-10-30] MEDS ORDERED: SODIUM CHLORIDE 0.9% 500ML 500 ML IV STA ×2 (14:07→16:30)
[2021-10-30 14:23] LABS: ALBUMIN 3.3 g/dL (3.5-5.0); ALBUMIN/GLOBULIN RATIO 0.9 (0.8-2.0); ANION GAP 16.6 mmol/L (8-16); CALCIUM 8.6 mg/dL (8.4-10.2); CREATININE, SERUM 1.32 mg/dL (0.72-1.25); POTASSIUM 3.6 mmol/L (3.5-5.1)
[2021-10-30 15:16] LABS: CLARITY,URINE TURBID (CLEAR); COLOR,URINE AMBER (YELLOW); KETONES,URINE 1+ (NEGATIVE); LEUKOCYTE ESTERASE ,URINE NEGATIVE (NEGATIVE); NITRITE,URINE NEGATIVE (NEGATIVE); PROTEIN,URINE DIPSTICK 2+ (NEGATIVE); URINE UROBILINOGEN 1 mg/dL (0.2 - 1)
[2021-10-30 15:45] LABS: URIC ACID CRYSTALS,URINE MANY (FEW); WBC,URINE (MAN) 0-5 /HPF (0-5)
[2021-10-30 15:47] LABS: RBC,URINE 21-50 /HPF (0-5)
[2021-10-30 15:48] LABS: BACTERIA,URINE RARE /HPF
[2021-10-30 15:51] LABS: AMORPHOUS SEDIMENT,URINE MODERATE (FEW)
[2021-10-30] MEDS ORDERED: SODIUM CHLORIDE 0.9% 500ML 500 ML ONE (16:44)
== END 2021-10-30 19:41 | disposition home or self-care (01) ==
LOC: ER 13:14
DX: R53.1 Weakness (principal); I48.91 Unspecified atrial fibrillation; E11.65 Type 2 diabetes mellitus with hyperglycemia; I10 Essential (primary) hypertension; E78.5 Hyperlipidemia, unspecified; E03.9 Hypothyroidism, unspecified; I25.2 Old myocardial infarction; Z20.822 Contact with and (suspected) exposure to COVID-19; Z86.73 Personal history of transient ischemic attack (TIA), and cerebral infarction without residual deficits; R94.31 Abnormal electrocardiogram [ECG] [EKG]
CPT/HCPCS: 0223U; 36415; 70450; 80053; 81001; 85025; 93005; 99283; J2405; J7040